=== PATIENT | female | born 1965 | race Caucasian/White ===

== ENCOUNTER 2021-05-12 08:40 | Outpatient (REF) | payer OTHER, SELFPAY ==
--- NOTE | ~2021-05-12 | MM_ITS ---
EXAMINATION: MM SCREENING DIGITAL BREAST TOMOSYNTHESIS, BILATERAL CLINICAL INFORMATION: Screening. Asymptomatic. The lifetime risk of breast cancer based on the Tyrer-Cuzick Model is 4%. COMPARISON: Mammography: 11/03/2019, 11/02/2018, 08/27/2017, 03/21/2016 TECHNIQUE: Digital breast tomosynthesis is performed in both the craniocaudal and mediolateral oblique views along with computer-aided detection (CAD). Synthesized 2D images are generated from the tomosynthesis. FINDINGS: There are scattered areas of fibroglandular density (ACR BI-RADS breast composition Category b). There are no significant masses, abnormal calcifications, or other abnormalities. Parenchymal pattern is similar to prior studies including minor parenchymal asymmetry mid upper right breast on MLO. There is no developing density. The axilla and skin contours are unremarkable. MM/MM tomosynthesis screening BI IMPRESSION: No mammographic evidence of malignancy. ASSESSMENT: BI-RADS 2: Benign RECOMMENDATION: Routine annual mammography screening. This patient's information was entered into a reminder system with a target due date for their next mammogram.
== END 2021-05-12 08:41 | disposition home or self-care (01) ==
LOC: HO.MAMMO 08:40
PROVIDERS: PCP Internal Medicine; Visit Provider Internal Medicine
DX: Z12.31 Encounter for screening mammogram for malignant neoplasm of breast (principal)
CPT/HCPCS: 77063; 77067

== ENCOUNTER 2022-05-13 09:21 | Outpatient (REF) | payer OTHER, SELFPAY ==
--- NOTE | ~2022-05-13 | MM_ITS ---
EXAMINATION: MM SCREENING DIGITAL BREAST TOMOSYNTHESIS, BILATERAL CLINICAL INFORMATION: Screening. Asymptomatic. The lifetime risk of breast cancer based on the Tyrer-Cuzick Model is 3.9%. COMPARISON: Mammography: May 12, 2021 and studies dating back to October 17, 2012 TECHNIQUE: Digital breast tomosynthesis is performed in both the craniocaudal and mediolateral oblique views along with computer-aided detection (CAD). Synthesized 2D images are generated from the tomosynthesis. FINDINGS: The breasts are heterogeneously dense, which may obscure small masses (ACR BI-RADS breast composition Category c). There are no significant masses, abnormal calcifications, or other abnormalities. MM/MM tomosynthesis screening BI IMPRESSION: There are no significant changes from prior study. ASSESSMENT: BI-RADS 1: Negative RECOMMENDATION: Routine annual mammography screening. This patient's information was entered into a reminder system with a target due date for their next mammogram.
== END 2022-05-13 09:22 | disposition home or self-care (01) ==
LOC: HO.MAMMO 09:21
PROVIDERS: PCP Internal Medicine; Visit Provider Internal Medicine
DX: Z12.31 Encounter for screening mammogram for malignant neoplasm of breast (principal)
CPT/HCPCS: 77063; 77067

== ENCOUNTER 2023-02-26 14:49 | Outpatient (REF) | payer OTHER, SELFPAY ==
--- NOTE | ~2023-02-26 | MM_ITS ---
EXAMINATION: BONE DENSITOMETRY CLINICAL INDICATION: Osteoporosis. COMPARISON: Previous BD dated 11/03/2019 and baseline BD dated 06/13/2008. TECHNIQUE: Using a [employer] DXA System (software version: 13.1) manufactured by [employer], dual-energy x-ray absorptiometry was performed of the lumbar spine and left hip. The images are of good technical quality. Summary results are attached. FINDINGS: AP SPINE L1-L4: Current: BMD 1.145 g/cm2, Z-score 1.4, T-score -0.3, normal, 0.9% increase from previous, 13.4% decrease from baseline (<5% change is not significant). Prior: BMD 1.135 g/cm2. Baseline: BMD 1.322 g/cm2. LEFT FEMUR, NECK: Current: BMD 0.683 g/cm2, Z-score -1.0, T-score -2.6, osteoporosis. Prior: BMD 0.673 g/cm2. Baseline: BMD 0.883 g/cm2. LEFT FEMUR, TOTAL: Current: BMD 0.692 g/cm2, Z-score -1.2, T-score -2.5, osteoporosis, 0.0% no change from previous, 21.5% decrease from baseline (<5% change is not significant). Prior: BMD 0.692 g/cm2. Baseline: BMD 0.882 g/cm2. IDENTIFIED RISK FACTORS: History of fracture (adult), menopause, osteoporosis. HISTORY OF FRACTURE: Wrist. MEDICATIONS: Vitamin D, calcium. MM/XR DEXA axial skeleton IMPRESSION: 1. DIAGNOSIS: Osteoporosis based on the lowest T-score value of -2.6 in the femoral neck applying World Health Organization criteria. 2. 10-YEAR FRACTURE RISK PREDICTION, FRAX: According to the guidelines, FRAX calculation should only be performed on patients in the osteopenia bone density category. Therefore, FRAX was not performed on this patient. 3. Treatment Recommendations: NOF guidelines recommend consideration for treatment in postmenopausal women and men age 50 and older presenting with the following: -A hip or vertebral (clinical or morphometric) fracture. -T-score less than or equal to -2.5 at the femoral neck or spine after appropriate evaluation to exclude secondary causes. -Low bone mass at the hip or spine and a 10-year fracture probability by FRAX of greater than or equal to 3% for hip fracture or greater than or equal to 20% for major osteoporotic fracture based on the [place] adapted WHO algorithm. 4. Other Recommendations: All treatment decisions require clinical judgment and consideration of individual patient factors, including patient preferences, comorbidities, previous drug use, risk factors not captured in the FRAX model (e.g. frailty, falls, vitamin D deficiency, increased bone turnover, interval significant decline in bone density) and possible under or overestimation of fracture risk by FRAX. Additional medical evaluation for secondary cause of low bone mineral density may be appropriate. FUTURE SCAN RECOMMENDATION: People with diagnosed cases of osteoporosis or at high risk for fracture should have regular bone mineral density tests. For patients eligible for Medicare, routine testing is allowed once every 2 years. The testing frequency can be increased to one year for patients who have rapidly progressing disease, those who are receiving or discontinuing medical therapy to restore bone mass, or have additional risk factors.
== END 2023-02-26 14:50 | disposition home or self-care (01) ==
LOC: HO.MAMMO 14:49
PROVIDERS: PCP Obstetrics & Gynecology; Visit Provider Obstetrics & Gynecology
DX: Z13.820 Encounter for screening for osteoporosis (principal); Z78.0 Asymptomatic menopausal state; M81.0 Age-related osteoporosis without current pathological fracture
CPT/HCPCS: 77080

== ENCOUNTER 2023-05-20 11:24 | Outpatient (REF) | payer OTHER, SELFPAY ==
--- NOTE | ~2023-05-20 | MM_ITS ---
EXAMINATION: MM SCREENING DIGITAL BREAST TOMOSYNTHESIS, BILATERAL CLINICAL INFORMATION: Screening. Asymptomatic. The lifetime risk of breast cancer based on the Tyrer-Cuzick Model is 5.4%. COMPARISON: Mammography: This study is compared with prior exams dating back to 2019. TECHNIQUE: Digital breast tomosynthesis is performed in both the craniocaudal and mediolateral oblique views along with computer-aided detection (CAD). Synthesized 2D images are generated from the tomosynthesis. FINDINGS: There are scattered areas of fibroglandular density (ACR BI-RADS breast composition Category b). There are no significant masses, abnormal calcifications, or other abnormalities. MM/MM tomosynthesis screening BI IMPRESSION: No mammographic evidence of malignancy. ASSESSMENT: BI-RADS BI-RADS 1 - Negative RECOMMENDATION: Routine annual mammography screening. 1 year F/U This examination should not preclude the clinical evaluation of a suspicious palpable abnormality. This patient's information was entered into a reminder system with a target due date for their next mammogram.
== END 2023-05-20 11:25 | disposition home or self-care (01) ==
LOC: HO.MAMMO 11:24
PROVIDERS: Absent Provider Student in an Organized Health Care Education/Training Program; PCP Student in an Organized Health Care Education/Training Program; Visit Provider Obstetrics & Gynecology
DX: Z12.31 Encounter for screening mammogram for malignant neoplasm of breast (principal)
CPT/HCPCS: 77063; 77067

== ENCOUNTER → 2023-05-20 11:30 | Outpatient (BNV) | payer OTHER, SELFPAY | PROVIDERS: Absent Provider Student in an Organized Health Care Education/Training Program; PCP Student in an Organized Health Care Education/Training Program; Visit Provider Radiology Diagnostic Radiology | DX: Z12.31 Encounter for screening mammogram for malignant neoplasm of breast (principal) | CPT/HCPCS: 77063; 77067 ==

== ENCOUNTER 2023-10-14 08:19 | Inpatient (IN) | payer OTHER, SELFPAY ==
[2023-10-14] VITALS (12 sets, daily range): BP systolic 100–150; BP diastolic 56–76; PULSE 61–125; RESP 16–22; TEMP 36–37.8; O2SAT 88–95; BMI 18.9
--- NOTE | ~2023-10-14 | XR_ITS ---
EXAMINATION: XR CHEST CLINICAL INFORMATION: Bilateral rhonchi, shortness of breath COMPARISON: None available. TECHNIQUE: 2 views of the chest were obtained. FINDINGS: Retrocardiac left lower lobe opacity observed suspicious for an infiltrate. Small linear atelectatic changes and patchy opacities are also seen peripherally toward the left base and in the right base. No distinct pleural effusions. Pulmonary vascularity appears unremarkable. XR/XR chest 2V IMPRESSION: Left lower lobe infiltrate. Linear atelectatic and small patchy opacities toward the bases bilaterally.
--- NOTE | ~2023-10-14 | CT_ITS ---
EXAMINATION: CT ANGIOGRAM OF THE CHEST WITH AND WITHOUT CONTRAST (CT PULMONARY ANGIOGRAM FOR PE) CLINICAL INFORMATION: Reason for Exam elevated ddimer, SOB COMPARISON: None available. TECHNIQUE: Prior to contrast administration, noncontrast localization images were obtained. Subsequently, multidetector volumetric imaging was performed from the thoracic inlet to below the diaphragms following the administration of 65 mL Omnipaque 350 intravenous contrast. No contrast reaction reported Sagittal, coronal, and MIP oblique sagittal reformatted images were obtained on the CT workstation, uploaded to PACS, and reviewed. This CT examination was performed using dose optimization techniques as appropriate, variously including the following: *Automated exposure control *Adjustment of mA and/or kV according to patient size (this includes techniques or standardized protocols for targeted exams where dose is matched to indication/reason for exam; i.e. extremities or head) *Use of iterative reconstruction technique Total exam dose-length product 188 mGy-cm FINDINGS: QUALITY OF STUDY/CONTRAST BOLUS: Satisfactory. PULMONARY ARTERIES: No pulmonary emboli. THORACIC AORTA: No aneurysm. LUNG: Multifocal patchy changes are present in both lower lobes with associated mucoid impaction of multiple bronchi. Some small scattered micronodules are seen. PLEURA: No pleural effusion or pneumothorax. MEDIASTINUM: Normal heart size. There is pectus excavatum. No pericardial effusion. No hilar or mediastinal lymphadenopathy. No evidence of septal bowing or right heart strain. CORONARY ARTERY CALCIFICATION: None visualized on this study. CHEST WALL/AXILLA: No axillary or internal mammary lymphadenopathy. OSSEOUS STRUCTURES: There is a biconvex thoracolumbar scoliosis present. No acute or suspicious osseous abnormality. UPPER ABDOMEN: Unremarkable. No reflux of contrast into the hepatic veins to suggest elevated right heart pressures. CT/CT angio chest PE protocol IMPRESSION: 1. No evidence of pulmonary emboli. 2. Multifocal patchy changes in both lower lobes with associated mucoid impaction of multiple bronchi. VTE: negative.
--- NOTE | 2023-10-14 08:49 | ED_ITS ---
HPI - General Adult General Chief complaint: Dyspnea Stated complaint: Low oxygen Time Seen by Provider: 10/14/23 08:48 Source: patient and family () Mode of arrival: ambulatory Limitations: no limitations History of Present Illness HPI narrative: 58 year old female with pmhx significant for mild persistent asthma, HTN, and hypothyroidism presents to the ED today for evaluation of shortness of breath and low oxygen x1 day. Reports cough productive of yellow/green sputum times 4- 5 days. She lives with her who has been ill with similar symptoms. States that her oxygen saturation at home yesterday was between 86 and 80% on room air. Does not require home O2. Admits feeling out of breath with associated chest tightness, headache, generalized weakness. Has been using albuterol inhaler at home without relief. Last used this this morning. States she feels warm however no documented fever at home. Denies recent travel or long car rides. Denies hormone use. Denies chest pain, palpitations, hemoptysis, sputum production. Related Data Home Medications Medication Instructions Recorded Confirmed aspirin 81 mg tablet,delayed 81 mg PO DAILY 10/14/23 10/14/23 release budesonide-formoterol HFA 160 2 puff inhalation BID 10/14/23 10/14/23 mcg-4.5 mcg/actuation aerosol inhaler (Symbicort) calcium carbonate 500 mg calcium 500 mg PO DAILY 10/14/23 10/14/23 (1,250 mg) tablet levothyroxine 75 mcg tablet 75 mcg PO DAILY@0600 10/14/23 10/14/23 losartan 25 mg tablet 25 mg PO BEDTIME 10/14/23 10/14/23 montelukast 10 mg tablet 10 mg PO BEDTIME 10/14/23 10/14/23 Allergies Allergy/AdvReac Type Severity Reaction Status Date / Time sulfamethoxazole Allergy Rash Verified 10/14/23 08:27 [From Bactrim] trimethoprim [From Bactrim] Allergy Rash Verified 10/14/23 08:27 Review of Systems 2 Review of Systems: Constitutional: No fever, chills, fatigue, night sweats, weight changes, +generalied weakness ENT/Mouth: No ear pain, hearing loss, nasal congestion, sinus pain, rhinorrhea, sore throat Eyes: No eye pain, swelling, redness, vision changes, discharge Cardio: No chest pain, palpitations, SILVA, orthopnea, peripheral edema Pulm: +SOB, +cough, No sputum, wheezing, dyspnea, hemoptysis GI: No nausea, vomiting, hematemesis, abdominal pain, diarrhea, constipation, hematochezia, melena : No irregular bleeding, dysuria, frequency, urgency, hesitancy, hematuria, flank pain, urinary flow changes, urinary incontinence or retention MSK: No back pain, neck pain, joint pain, myalgias Skin: No lesions, rashes Neuro: No weakness, numbness, paresthesias, LOC, dizziness, +headache All other systems reviewed and are negative. [facility] Past Medical History Attestation statement: The following information was validated with the patient. Source: old records reviewed and nursing notes reviewed Social History Social History Household Members: Spouse Housing: House Do you presently have visiting nurse or other home services: No Patient Tobacco Use Status: Never used Tobacco Physical Exam ED Vital Signs: Vital Signs - 24 hr 10/14/23 12:20 Temperature 99.3 F Pulse Rate 103 H Respiratory Rate 17 Blood Pressure 125/67 Pulse Oximetry 93 Oxygen Delivery Method Room Air BMI result Body Mass Index 18.9 Vital signs notable for tachycardia, tachypnea, hypoxia, hypertensive. Afebrile. Const General: cooperative, no acute distress, alert, awake and ill appearing Nutritional Appearance: thin Orientation/consciousness: patient oriented x3 Limitations: no limitations HENMT Head: Yes normal to inspection, Yes normocephalic and Yes atraumatic Eyes General: appearance normal, both eyes and all related structures Conjunctivae: conjunctivae normal Sclerae: sclerae normal Pupils: Equal, round and reactive pupils present EOM: EOMs intact bilaterally Neck Neck: Yes normal visual inspection, Yes full ROM and Yes no lymphadenopathy Chest Chest palpation & inspection: normal inspection of the chest, normal palpation of entire chest wall, no crepitus and no tenderness Resp Other: + patient with increased effort of breathing. Diffuse inspiratory and expiratory rhonchi and wheezing bilaterally. On 2 L O2. Effort & Inspection: tachypneic Cardio Rate: tachycardic Rhythm: regular rhythm Heart sounds: S1 normal heart sound present and S2 normal heart sound present GI Inspection: Yes normal to inspection Palpation (GI): Soft to palpation and nontender Skin General skin exam: no rashes or lesions noted Neuro General: patient oriented x3, gait normal and moves all extremities Cranial nerves: Yes Equal, round and reactive pupils present Extrem General: Yes normal to inspection and Yes full ROM Course Course Course Narrative: 0900-- Vital signs notable for hypertension to 141/76. Tachycardia to 107. Tachypnea to 22. Satting 88% O2 on room air, now 93% on 3L nasal cannula. Afebrile. >> CBC without leukocytosis.?H&H stable. Ddimer 3100 > CTA chest ordered to r/o pulmonary emboli. Chemistry without acute electrolyte abnormality requiring intervention. Renal function wnl. Hepatic function wnl. Latic acid wnl at 1.1. Urine negative for infection.?Positive for influenza A. Negative for covid and rsv. CXR exhibits left lower lobe infiltrate. >> at this time infection is suspected. patient placed on IV ceftriaxone and azithromycin for broad spectrum coverage. 1100-- CTA chest exhibits multifocal patchy changes to bilateral lower lobes with associated mucoid impaction of multiple bronchi. No evidence of pulmonary emboli. >> Patient reciving duoneb, IV antibiotics, and tamiflu >> will present to hospitalist for admission for hypoxia secondary to influenza A, community acquired pneumonia, and acute asthma exacerbation. 1125-- Spoke with hospitalist, Dr. Cole who will put in admission orders. Medications Administered Generic Name Dose Route Start Last Admin Trade Name Freq PRN Reason Stop Dose Admin Acetaminophen 650 mg 10/14/23 13:03 10/15/23 09:57 Acetaminophen 325 Mg Tablet PO 650 mg Q6H PRN Administration Pain, Mild (Pain Scale 1-3) Albuterol/Ipratropium 3 ml 10/14/23 16:00 10/15/23 11:11 Albuterol/Iprat 2.5/0.5mg 3 Ml Ampul.Neb INHALE 3 ml RQ4H WHILE AWAKE NANCY Administration Aspirin 81 mg 10/14/23 13:00 10/15/23 09:45 Aspirin Enteric Coated 81 Mg Tablet. PO 81 mg DAILY NANCY Administration Calcium Carbonate 500 mg 10/14/23 13:00 10/15/23 09:45 Calcium Carbonate 500 Mg Tablet PO 500 mg DAILY NANCY Administration Enoxaparin Sodium 40 mg 10/14/23 13:15 10/14/23 13:33 Enoxaparin Sodium 40 Mg/0.4 Ml Syringe SUBCUT 40 mg Q24H NANCY Administration Fluticasone/Vilanterol 2 puff 10/15/23 08:00 10/15/23 11:11 Fluticasone/Vilanterol 200/25 Blst.W.Dev INHALE 2 puff RDAILY NANCY Administration Guaifenesin/Dextromethorphan 1 tab 10/14/23 13:10 10/15/23 09:45 Guaifenesin Dm 600/30 1 Tab Tab.Er.12h PO 1 tab BID NANCY Administration Ceftriaxone Sodium 1 gm/ 50 mls @ 100 mls/hr 10/15/23 10:00 10/15/23 11:33 Sodium Chloride IV Infused Q24H NANCY Infusion Azithromycin 500 mg/ Sodium 250 mls @ 125 mls/hr 10/15/23 10:30 10/15/23 11:12 Chloride IV 125 mls/hr Q24H NANCY Administration Levothyroxine Sodium 75 mcg 10/15/23 06:00 10/15/23 06:24 Levothyroxine Sodium 75 Mcg Tablet PO 75 mcg DAILY@0600 NANCY Administration Losartan Potassium 25 mg 10/14/23 21:00 10/14/23 20:17 Losartan Potassium 25 Mg Tablet PO 25 mg BEDTIME NANCY Administration Protocol Methylprednisolone Sodium Succinate 40 mg 10/14/23 13:30 10/15/23 01:19 Methylprednisolone Sod Succ 40 Mg/Ml Vial IVPUSH 40 mg Q12H NANCY Administration Montelukast Sodium 10 mg 10/14/23 21:00 10/14/23 20:17 Montelukast Sodium 10 Mg Tablet PO 10 mg BEDTIME NANCY Administration Oseltamivir Phosphate 75 mg 10/14/23 22:30 10/15/23 10:43 Oseltamivir Phosphate 75 Mg Capsule PO 10/18/23 22:31 75 mg Q12H NANCY Administration Sodium Chloride 3 ml 10/14/23 16:00 10/15/23 09:45 0.9 % Sodium Chloride Flush 3 Ml Syringe IVFLUSH 3 ml QSHIFT NANCY Administration Discontinued Medications Generic Name Dose Route Start Last Admin Trade Name Freq PRN Reason Stop Dose Admin Albuterol Sulfate 2.5 mg/ 0 mg 10/14/23 09:07 10/14/23 09:11 Albuterol/Ipratropium 3 ml INHALE 10/14/23 09:08 1 dose ONCE ONE Administration Ceftriaxone Sodium 1 gm/ 50 mls @ 100 mls/hr 10/14/23 09:00 10/14/23 10:24 Sodium Chloride IV 10/14/23 09:29 Infused ONCE ONE Infusion Azithromycin 500 mg/ Sodium 250 mls @ 125 mls/hr 10/14/23 09:00 10/14/23 12:19 Chloride IV 10/14/23 10:59 Infused ONCE ONE Infusion Sodium Chloride 1,000 mls @ 999 mls/hr 10/14/23 13:15 10/14/23 14:46 Ns IV 10/14/23 14:15 Infused .Q1H1M NANCY Infusion Iohexol 100 ml 10/14/23 10:04 10/14/23 10:05 Iohexol 350 Mg/Ml 100 Ml Infus..Btl IV 10/14/23 10:05 65 ml ONCE ONE Administration Ondansetron HCl 4 mg 10/14/23 10:01 10/14/23 10:28 Ondansetron Hcl 4 Mg/2 Ml Vial IVPUSH 10/14/23 10:02 4 mg ONCE ONE Administration Oseltamivir Phosphate 75 mg 10/14/23 09:52 10/14/23 10:29 Oseltamivir Phosphate 75 Mg Capsule PO 10/14/23 09:53 75 mg ONCE ONE Administration Medical Decision Making Medical Decision Making MDM Narrative: 58 year old female with pmhx significant for mild persistent asthma, HTN, and hypothyroidism presents to the ED today for evaluation of shortness of breath and low oxygen x1 day. VS notable for hypertension to 141/76. Tachycardia to 107. Tachypnea to 22. Satting 88% O2 on room air, now 94% on 2L nasal cannula. Afebrile. Patient is ill appearing with increased effort of breathing. Diffuse inspiratory and expiratory rhonchi and wheezing bilaterally. On 2 L O2. Concern for viral syndrome, acute asthma exacerbation, pneumonia, urinary tract infection, pulmonary embolism, CHF, pleural effusion, pericardial effusion, cardiac tamponade. Unlikely acute abdomen, ARDS, pneumothorax, lung abscess, ACS, arrhythmia. Plan for labs, ekg, cxr, ua, viral serology, rt treatment, and re-evaluation. Differential Diagnosis Differential Diagnoses: The differential diagnosis associated with the presentation includes as above Admission/Observation Consideration of admission/observation: Escalation of care including admission/observation considered Patient likely to be admitted to medicine. Consult Healthcare Provider Management of the patient was discussed with: Hospitalist (Dr. Cole) Lab Data MDM Lab Attestation statement: I reviewed the patient's lab results. as above 10/14/23 09:10 10/15/23 05:37 Labs: Lab Results 10/14/23 10/14/23 10/14/23 Range/Units 08:50 09:10 09:15 WBC 9.7 (4.8-10.8) X10*3/uL RBC 4.41 (4.20-5.50) X10*6/uL Hgb 13.6 (12.0-16.0) g/dl Hct 40.6 (37.0-47.0) % MCV 92.1 (80.0-98.0) fL MCH 30.8 (27.0-33.0) pg MCHC 33.5 (31.0-35.0) g/dl RDW 12.3 (11.0-16.0) % Plt Count 183 (160-400) X10*3/uL MPV 10.0 (9.4-12.3) fL Immature Gran % (Auto) 0.4 (0.0-0.4) % Neut % (Auto) 87.9 H (45-73) % Lymph % (Auto) 6.4 L (20-40) % Cass % (Auto) 5.0 (2-11) % Eos % (Auto) 0.0 (0-4) % Baso % (Auto) 0.3 (0-2) % Lymph # (Auto) 0.6 L (1.2-4.9) X10*3/uL Cass # (Auto) 0.5 (0.1-1.2) X10*3/uL Eos # (Auto) 0.0 (0.0-0.4) X10*3/uL Baso # (Auto) 0.0 (0.0-0.2) X10*3/uL Abs Immat Gran (auto) 0.04 H (0.00-0.03) X10*3/uL Absolute Neuts (auto) 8.5 H (2.0-8.3) x10*3/uL Absolute Nucleated RBC 0.000 (0.0-0.012) X10*3/uL Nucleated RBC % (auto) 0.0 (0.0-0.2) /100WBC PT 12.2 (11.1-13.3) SEC INR 1.0 (0.9-1.1) D-Dimer High Sensitivty 3100 NG/ML VBG pH 7.42 (7.32-7.43) VBG pCO2 40 mmHg VBG pO2 41 mmHg VBG HCO3 26 (22-26) mmol/L VBG O2 Saturation 67.0 % VBG Base Excess 1.9 mmol/L Sodium 140 (135-145) mmol/L Potassium 4.4 (3.3-5.1) mmol/L Chloride 105 (96-108) mmol/L Carbon Dioxide 26 (22-29) mmol/L Anion Gap 13 (12-20) BUN 11 (9-16) mg/dL Creatinine 0.83 (0.5-1.4) mg/dL Estim Creat Clear Calc 56.9 Estimated GFR > 60 Random Glucose 129 H (60-115) mg/dL Lactic Acid 1.1 (0.5-2.0) mmol/L Calcium 9.8 (8.4-10.2) mg/dL Magnesium 2.2 (1.6-2.6) mg/dL Total Bilirubin 1.2 H (0.0-1.0) mg/dL AST 23 (5-31) U/L ALT 13 (0-31) U/L Alkaline Phosphatase 60 (39-117) U/L Troponin I High Sens < 2.7 (<3.5-17.0) ng/L B-Natriuretic Peptide 23 (<100) pg/mL Total Protein 7.6 (6.5-8.0) g/dL Albumin 4.4 (3.5-5.0) g/dL Lipase 22 (8-78) U/L Influenza Type A (PCR) POSITIVE A (Negative) Influenza Type B (PCR) NEGATIVE (Negative) RSV RNA Qual (PCR) NEGATIVE (Negative) SARS-CoV-2 RNA (RT-PCR) NEGATIVE (Negative) Independent Interpretation I performed an independent interpretation of an: EKG, Plain X-Ray and CT Scan Interpretation: EKG showing sinus tachycardia with a rate of 118 bpm, QT 302, QTC 423, with nonspecific ST abnormality. CXR showing infiltrate to left lower lobe, agree with radiologist's interpretation. CTA chest without emboli, agree with radiologist's interpretation. Radiology Impression Discussion of test interpretation with radiology: I have reviewed the radiologist's reading. Radiologist Impression: XR chest 2V IMPRESSION: Left lower lobe infiltrate. Linear atelectatic and small patchy opacities toward the bases bilaterally. CT angio chest PE protocol IMPRESSION: 1. No evidence of pulmonary emboli. 2. Multifocal patchy changes in both lower lobes with associated mucoid impaction of multiple bronchi. VTE: negative. Independent Historian Clinical information obtained from an independent historian. History obtained from or confirmed by: Spouse () External Record Review External record reviewed: Inpatient record Prescription Management I considered prescription management with: Pain Medication, Antiviral, Antibiotic and Other (steroid) Chronic Conditions Patient?s care impacted by: Other (asthma) Critical Care Time Critical Care Time Critical Care Time: Yes Total Critical Care Time: 60 Attestation: Critical care time in the amount of 60 minutes has been provided to the patient in terms of direct patient care, frequent reevaluation, consultation with hospitalist, review and interpretation of medical data and results, and management of potentially life-threatening conditions. This is all outside of any medical procedures. Discharge Plan Discharge Clinical Impression: Acute asthma exacerbation, Influenza A, Community acquired pneumonia Patient Disposition: Admitted As Inpatient Interventions: Admission Worksheet (ED) Last Done: 10/14/23 18:52 Discharge Date/Time: 10/14/23 23:37
--- NOTE | 2023-10-14 08:53 | ECG_ITS ---
Test Reason : weakness Blood Pressure : / mmHG Vent. Rate : 118 BPM Atrial Rate : 118 BPM P-R Int : 140 ms QRS Dur : 070 ms QT Int : 302 ms P-R-T Axes : 069 074 056 degrees QTc Int : 423 ms Sinus tachycardia Possible Left atrial enlargement Nonspecific ST abnormality Abnormal ECG No previous ECGs available Referred By: Emilee Mccann Electronically Signed By:SARIKA LERMA MD
[2023-10-14] MEDS: Albuterol Sulfate 2.5 MG, Albuterol/Iprat 2.5/0.5MG 3 ML 3 ML INHALE (09:11)
[2023-10-14 09:19] LABS: MANUAL DIFF FLAG NO
[2023-10-14 09:21] LABS: Venous Blood Gas Refer to POC result
[2023-10-14 09:22] LABS: VBG Base Excess 1.9 mmol/L; VBG HCO3 26 mmol/L (22-26); VBG pCO2 40 mmHg; VBG pH 7.42 (7.32-7.43); VBG pO2 41 mmHg
[2023-10-14 09:25] LABS: Basophils Percent Auto 0.3 % (0-2); Hematocrit 40.6 % (37.0-47.0); Hemoglobin 13.6 g/dl (12.0-16.0); Imm Gran Abs Auto 0.04 X10*3/uL (0.00-0.03); Imm Gran Pct Auto 0.4 % (0.0-0.4); Lymphocytes Absolute Auto 0.6 X10*3/uL (1.2-4.9); Lymphocytes Percent Auto 6.4 % (20-40); Mean Corpuscular HGB Conc 33.5 g/dl (31.0-35.0); Mean Corpuscular Hemoglobin 30.8 pg (27.0-33.0); Mean Corpuscular Volume 92.1 fL (80.0-98.0); Monocytes Absolute Auto 0.5 X10*3/uL (0.1-1.2); Neutrophils Absolute Auto 8.5 x10*3/uL (2.0-8.3); Neutrophils Percent Auto 87.9 % (45-73); Platelet Count 183 X10*3/uL (160-400); Red Blood Count 4.41 X10*6/uL (4.20-5.50); Red Cell Distribution Width 12.3 % (11.0-16.0); White Blood Count 9.7 X10*3/uL (4.8-10.8)
[2023-10-14 09:31] LABS: Lactic Acid 1.1 mmol/L (0.5-2.0)
[2023-10-14 09:34] LABS: Prothrombin Time 12.2 SEC (11.1-13.3)
[2023-10-14 09:36] LABS: Alanine Aminotransferase 13 U/L (0-31); Albumin Level 4.4 g/dL (3.5-5.0); Alkaline Phosphatase 60 U/L (39-117); Anion Gap 13 (12-20); Aspartate Amino Transferase 23 U/L (5-31); Bilirubin Total 1.2 mg/dL (0.0-1.0); Blood Urea Nitrogen 11 mg/dL (9-16); Calcium 9.8 mg/dL (8.4-10.2); Carbon Dioxide 26 mmol/L (22-29); Chloride 105 mmol/L (96-108); Creatinine Clr Calc Pharmacy 56.9; D Dimer High Sensitivity 3100 NG/ML; Estimated Glomerular Filt Rate > 60; Glucose Random 129 mg/dL (60-115); Lipase 22 U/L (8-78); Magnesium 2.2 mg/dL (1.6-2.6); Potassium 4.4 mmol/L (3.3-5.1); Sodium 140 mmol/L (135-145); Total Protein 7.6 g/dL (6.5-8.0)
[2023-10-14 09:40] LABS: B Type Natriuretic Peptide 23 pg/mL (<100)
[2023-10-14] MEDS: cefTRIAXone sodium 1 GM in 0.9 % Sodium Chloride 50 ML IV (09:42)
[2023-10-14 09:44] LABS: Troponin-I High Sensitivity < 2.7 ng/L (<3.5-17.0)
[2023-10-14 09:46] LABS: Influenza A PCR POSITIVE (Negative); Influenza B PCR NEGATIVE (Negative); Resp Syncy Virus RNA Qual PCR NEGATIVE (Negative); SARS COV2 PCR INHOUSE NEGATIVE (Negative)
--- NOTE | 2023-10-14 09:52 | PC.NURSE ---
To ct at this time
[2023-10-14] MEDS: iohexoL 350 MG/ML 100 ML INFUS..BTL IV (10:05)
[2023-10-14] MEDS: Azithromycin 500 MG in 0.9 % Sodium Chloride 250 ML 125 MG IV (10:21)
[2023-10-14] MEDS: ondansetron HCL 4 MG/2 ML VIAL IVPUSH (10:28)
[2023-10-14] MEDS: Oseltamivir Phosphate 75 MG CAPSULE PO ×2 (10:29→21:55)
--- NOTE | 2023-10-14 11:45 | PM.IMHP ---
History of Present Illness Date of Service: 10/14/23 Attending physician on admission: Kamron Arevalo Chief Complaint: SOB Pt is a 58-year-old female with a PMH significant for?mild persistent asthma, HTN, and hypothyroidism who presents to the ED with?hypoxia, SOB, and productive cough for the past 4-5 days. Patient lives with her , who became ill approximately 1 week ago with nonproductive cough and fever. Symptoms last 24 hours and then he felt better. Patient began feeling ill 1-2 days later when she developed cough, low-grade fever, myalgias, and headache. Cough has been productive of thick green sputum. Also has had some nausea and vomiting. Patient checked her O2 sat earlier today which was low at 86%, which prompted her visit to the ED for further evaluation. Patient is not on home O2. Has experienced some chest tightness associated with both cough and breathing. In the ED pt was elevated temp of 100.0 degrees, tachycardia 107, tachypnea up to 22, hypertensive up to 150/69, and satting at 88% on RA. Labs were significant for patient tested positive for influenza type A, otherwise grossly unremarkable. No leukocytosis. Stable H&H. Electrolytes WNL. Renal function WNL. Hepatic function WNL. Troponin negative, BNP negative. Lactic acid WNL at 1.1. CXR showed linear atelectasis and small patchy opacities toward the bases bilaterally. CTA ?showed no evidence of pulmonary emboli, but did show multifocal patchy changes in both lower lobes with associated mucoid impaction of multiple bronchi. EKG demonstrated sinus tachycardia with non specific ST elevations and depressions. Pt was treated with DuoNebs, ceftriaxone, azithromycin, ondansetron, and Tamiflu. Pt will be admitted to the hospital for treatment further evaluation of acute hypoxic respiratory failure in setting of influenza type B infection, community-acquired pneumonia, and acute asthma exacerbation. Review of Systems Review of Systems: Shortness of breath Hypoxia Cough productive of green-colored sputum Headache Myalgias Low-grade fever Nausea, vomiting Chest tightness/pain with breathing and coughing PMFSH Social History Smoked in Last 30 Days: No Use of substances other than those prescribed or required for medical reasons: No Advance Directives: No Advance Directives Information Provided: Yes Patient : No Meds Allergies Allergy/AdvReac Type Severity Reaction Status Date / Time sulfamethoxazole Allergy Rash Verified 10/14/23 08:27 [From Bactrim] trimethoprim [From Bactrim] Allergy Rash Verified 10/14/23 08:27 Home Medications Medication Instructions Recorded Confirmed Last Taken Type aspirin 81 mg tablet,delayed 81 mg PO DAILY 10/14/23 10/14/23 10/13/23 09:00 History release budesonide-formoterol HFA 160 2 puff inhalation BID 10/14/23 10/14/23 10/13/23 09:00 History mcg-4.5 mcg/actuation aerosol inhaler (Symbicort) calcium carbonate 500 mg calcium 500 mg PO DAILY 10/14/23 10/14/23 10/13/23 09:00 History (1,250 mg) tablet levothyroxine 75 mcg tablet 75 mcg PO DAILY@0600 10/14/23 10/14/23 10/14/23 History losartan 25 mg tablet 25 mg PO BEDTIME 10/14/23 10/14/23 10/13/23 09:00 History montelukast 10 mg tablet 10 mg PO BEDTIME 10/14/23 10/14/23 10/12/23 History Physical Exam Vital Signs and Narrative: Vital Signs: Last Vital Signs Temp 100.0 F 10/14/23 08:37 Pulse 125 H 10/14/23 09:50 Resp 20 10/14/23 09:50 BP 147/75 H 10/14/23 09:50 Pulse Ox 94 10/14/23 09:50 O2 Del Method Nasal Cannula 10/14/23 09:50 O2 Flow Rate 4 10/14/23 09:50 BMI result Body Mass Index 18.9 Constitutional: Alert, in no acute distress. Mental Status: Oriented to person, place and time. Eyes: Pupils are equal, round, and reactive to light. Ear, Nose, and Throat: Oropharynx clear, mucous membranes moist. Ears and nose without deformities. Trachea midline. Respiratory: Diffuse inspiratory and expiratory rhonchi and wheezing bilaterally. Cardiovascular: S1, S2, tachy. Gastrointestinal: Abdomen soft, non-tender, non-distended. Normal bowel sounds. Neurologic: Cranial nerves II-XII are grossly intact bilaterally. No focal neurological deficits. Moves all extremities spontaneously. Skin: Warm, dry. Musculoskeletal: No cyanosis or clubbing. Extremities: No edema. Psychiatric: Normal mood and affect. Results Labs 10/14/23 09:10 10/14/23 09:10 Labs: Laboratory Results - last 24 hr 10/14/23 10/14/23 10/14/23 08:50 09:10 09:15 MCV 92.1 MCH 30.8 MCHC 33.5 RDW 12.3 Plt Count 183 MPV 10.0 Immature Gran % (Auto) 0.4 Neut % (Auto) 87.9 H Lymph % (Auto) 6.4 L [place] % (Auto) 5.0 Eos % (Auto) 0.0 Baso % (Auto) 0.3 Lymph # (Auto) 0.6 L [place] # (Auto) 0.5 Eos # (Auto) 0.0 Baso # (Auto) 0.0 Abs Immat Gran (auto) 0.04 H Absolute Neuts (auto) 8.5 H Absolute Nucleated RBC 0.000 Nucleated RBC % (auto) 0.0 PT 12.2 INR 1.0 D-Dimer High Sensitivty 3100 VBG pH 7.42 VBG pCO2 40 VBG pO2 41 VBG HCO3 26 VBG O2 Saturation 67.0 VBG Base Excess 1.9 Anion Gap 13 Estim Creat Clear Calc 56.9 Estimated GFR > 60 Random Glucose 129 H Lactic Acid 1.1 Calcium 9.8 Magnesium 2.2 Total Bilirubin 1.2 H AST 23 ALT 13 Alkaline Phosphatase 60 B-Natriuretic Peptide 23 Total Protein 7.6 Albumin 4.4 Lipase 22 Influenza Type A (PCR) POSITIVE A Influenza Type B (PCR) NEGATIVE RSV RNA Qual (PCR) NEGATIVE SARS-CoV-2 RNA (RT-PCR) NEGATIVE Imaging Radiologist's Impressions: Impressions Chest CTA 10/14/23 10:16 IMPRESSION: 1. No evidence of pulmonary emboli. 2. Multifocal patchy changes in both lower lobes with associated mucoid impaction of multiple bronchi. VTE: negative. Assessment and Plan (1) Influenza A: Status: Acute (2) Hypoxia: Status: Acute (3) Asthma exacerbation: Status: Acute Plan Pt is a 58-year-old female with a PMH significant for?mild persistent asthma, HTN, and hypothyroidism who presents to the ED with?hypoxia, SOB, and productive cough for the past 4-5 days. Pt will be admitted to the hospital for treatment further evaluation of acute hypoxic respiratory failure in setting of influenza type B infection, community-acquired pneumonia, and acute asthma exacerbation. Acute hypoxic respiratory failure in the setting of influenza type a infection Patient satting as low as 86% on RA Will treat with Tamiflu, started 10/14/2023 Mucinex DM b.i.d. Titrate supplemental O2>92, wean as tolerated Community-acquired pneumonia with sepsis In the setting of above CXR and CTA evidence of multifocal patchy changes in bilateral lower lobes Patient with hypoxia, cough productive of thick greenish sputum Patient be sepsis criteria: Tachycardia, tachypnea; lactic acid WNL at 1.1 Will give 1L IVF Will treat with ceftriaxone and azithromycin, started 10/14/2023 Acute mild persistent asthma exacerbation In setting of above Will treat with DuoNebs, Solu-Medrol Continue home maintenance inhalers Monitor respiratory status Hyperbilirubinemia Total bili mildly elevated at 1.2 Patient asymptomatic Question of Gilbert's syndrome Will repeat CMP tomorrow Hypothyroidism Continue levothyroxine HTN Continue losartan Full Code Attending:?Dr. Mishra DVT Prophylaxis: Lovenox Pt will require a hospitalization of at least two nights for treatment of acute hypoxic respiratory failure in the setting of influenza type a infection, community-acquired pneumonia, and asthma exacerbation. Patient will require supplemental O2, IV antibiotics, IV steroids, and breathing treatments. Quality Stroke Does the patient have a stroke diagnosis?: No VTE Prior VTE?: No VTE Risk Level:: Medical - moderate - high VTE Device Contraindication: Treatment Not Indicated VTE Drug Contraindication: N/A - Med Ordered
--- NOTE | 2023-10-14 12:37 | PHA.MEDREC ---
Pharmacy Consult ? Medication Reconciliation Pharmacy has completed the medication reconciliation.
[2023-10-14] MEDS: 0.9 % Sodium Chloride 1,000 ML 999 ML IV (13:24)
[2023-10-14] MEDS: Aspirin Enteric Coated 81 MG TABLET.DR PO (13:32)
[2023-10-14] MEDS: Acetaminophen 325 MG TABLET 650 MG PO ×2 (13:32→20:17)
[2023-10-14] MEDS: Enoxaparin Sodium 40 MG/0.4 ML SYRINGE SUBCUT (13:33)
--- NOTE | 2023-10-14 13:35 | PC.NURSE ---
contact made to pharmacy, awaiting musinex at this time.
[2023-10-14] MEDS: methylPREDNISolone Sod Succ 40 MG/ML VIAL IVPUSH (13:38)
[2023-10-14] MEDS: guaiFENesin DM 600/30 1 TAB TAB.ER.12H PO ×2 (13:39→21:55)
--- NOTE | 2023-10-14 14:45 | PC.NURSE ---
RN RECEIVED FROM RN (MAIN ED). PT HAS ARRIVED VIA STRETCHER. PT IS IN BED 2.
--- NOTE | 2023-10-14 16:09 | PC.NURSE ---
patient brought over from ed, pt a&ox3, ambulated to bathroom with assist-O2 tank- steady gait, pt SILVA, urine obtained, flu precautions maintained pt back to bed and went to sleep, call stauffer within reach, will continue to monitor
[2023-10-14 16:13] LABS: Appearance Urine Clear; Color Urine Yellow; Glucose Urine UA Negative (Negative); Leukocyte Esterase Urine Negative (Negative); Nitrite Urine Negative (Negative); PH 6.5 (5.0-9.0); Specific Gravity - Urine >= 1.030 (1.005-1.025); Urine Blood Negative (Negative); Urine Ketones 15 mg/dL (Negative); Urine Protein Trace mg/dL (Neg-Trace)
[2023-10-14] MEDS: Albuterol/Iprat 2.5/0.5MG 3 ML AMPUL.NEB INHALE ×2 (16:48→19:45)
--- NOTE | 2023-10-14 17:15 | PC.NURSE ---
kitchen called for missing dinner
--- NOTE | 2023-10-14 18:55 | PC.NURSE ---
report set in computer/tiger texted floor notifying them
[2023-10-14] MEDS: Losartan Potassium 25 MG TABLET PO (20:17)
[2023-10-14] MEDS: Montelukast Sodium 10 MG TABLET PO (20:17)
[2023-10-14] MEDS: 0.9 % Sodium Chloride Flush 3 ML SYRINGE IVFLUSH (21:55)
[2023-10-15] VITALS (9 sets, daily range): BP systolic 108–145; BP diastolic 55–67; PULSE 74–100; RESP 18–20; TEMP 36.3–36.8; O2SAT 92–95
[2023-10-15] MEDS: methylPREDNISolone Sod Succ 40 MG/ML VIAL IVPUSH ×2 (01:19→14:29)
[2023-10-15] MEDS: Levothyroxine Sodium 75 MCG TABLET PO (06:24)
[2023-10-15 07:31] LABS: Alanine Aminotransferase 11 U/L (0-31); Albumin Level 3.8 g/dL (3.5-5.0); Alkaline Phosphatase 45 U/L (39-117); Anion Gap 15 (12-20); Aspartate Amino Transferase 17 U/L (5-31); Bilirubin Total 0.7 mg/dL (0.0-1.0); Blood Urea Nitrogen 14 mg/dL (9-16); Calcium 9.3 mg/dL (8.4-10.2); Carbon Dioxide 21 mmol/L (22-29); Chloride 105 mmol/L (96-108); Creatinine Clr Calc Pharmacy 69.4; Estimated Glomerular Filt Rate > 60; Glucose Random 140 mg/dL (60-115); Potassium 4.1 mmol/L (3.3-5.1); Sodium 137 mmol/L (135-145); Total Protein 6.8 g/dL (6.5-8.0)
[2023-10-15] MEDS: Albuterol/Iprat 2.5/0.5MG 3 ML AMPUL.NEB INHALE ×4 (07:47→19:03)
[2023-10-15] MEDS: guaiFENesin DM 600/30 1 TAB TAB.ER.12H PO ×2 (09:45→22:34)
[2023-10-15] MEDS: 0.9 % Sodium Chloride Flush 3 ML SYRINGE IVFLUSH ×2 (09:45→22:35)
[2023-10-15] MEDS: cefTRIAXone sodium 1 GM in 0.9 % Sodium Chloride 50 ML IV (09:45)
[2023-10-15] MEDS: Aspirin Enteric Coated 81 MG TABLET.DR PO (09:45)
[2023-10-15] MEDS: Acetaminophen 325 MG TABLET 650 MG PO (09:57)
--- NOTE | 2023-10-15 09:57 | MHC.CLN ---
NUTRITION DIET=REGULAR. BMI=18.9, AND WEIGHT IS 92% OF IBW. NO ADDITIONAL NUTRITION INTERVENTIONS AT THIS TIME. RD TO FOLLOW UP 10/19.
[2023-10-15] MEDS: Oseltamivir Phosphate 75 MG CAPSULE PO ×2 (10:43→22:35)
[2023-10-15] MEDS: Fluticasone/Vilanterol 200/25 BLST.W.DEV 2 PUFF INHALE (11:11)
[2023-10-15] MEDS: Azithromycin 500 MG in 0.9 % Sodium Chloride 250 ML 125 MG IV (11:12)
--- NOTE | 2023-10-15 12:10 | HO.PM.IMPN ---
Subjective Subjective Date of Service: 10/15/23 <FAUSTO Denton - Last Filed: 10/15/23 12:23> 10/16/23 <Jimbo Cole MD - Last Filed: 10/16/23 09:17> Interval History: Patient seen for follow-up for acute hypoxic respiratory failure in the setting of influenza type a, pneumonia, and asthma exacerbation Patient reports no acute events overnight States she is feeling and breathing better with less painful deep breathing Patient has been coughing less frequently, but says she has been able to cough up a lot of phlegm Denies any new complaints <FAUSTO Denton - Last Filed: 10/15/23 12:23> Physical Exam Vital Signs: Vital Signs: Last Vital Signs Temp 98.2 F 10/15/23 07:11 Pulse 77 10/15/23 11:11 Resp 18 10/15/23 11:11 BP 113/60 10/15/23 07:11 Pulse Ox 95 10/15/23 07:11 O2 Del Method Nasal Cannula 10/15/23 07:11 O2 Flow Rate 2 10/15/23 07:11 BMI result Body Mass Index 18.9 <FAUSTO Denton - Last Filed: 10/15/23 12:23> General: AOx3, no acute distress Resp: Diffuse bilateral rhonchi CVS: S1, S2, RRR GI: +BS, NT, no distention Skin: Warm, dry Neuro: Cranial nerves II-XII grossly intact bilaterally. Motor grossly intact bilaterally Extremities: No edema Psych: Appropriate affect <FAUSTO Denton - Last Filed: 10/15/23 12:23> Objective Data Active Medications Acetaminophen (Acetaminophen 325 Mg Tablet) 650 mg PO Q6H PRN PRN Reason: Pain, Mild (Pain Scale 1-3) Last Admin: 10/15/23 09:57 Dose: 650 mg Documented By: ROSE Albuterol/Ipratropium (Albuterol/Iprat 2.5/0.5mg 3 Ml Ampul.Neb) 3 ml INHALE RQ4H WHILE AWAKE [facility] Last Admin: 10/15/23 11:11 Dose: 3 ml Documented By: GABBY Aspirin (Aspirin Enteric Coated 81 Mg Tablet.) 81 mg PO DAILY [facility] Last Admin: 10/15/23 09:45 Dose: 81 mg Documented By: ROSE Calcium Carbonate (Calcium Carbonate 500 Mg Tablet) 500 mg PO DAILY [facility] Last Admin: 10/15/23 09:45 Dose: 500 mg Documented By: ROSE Docusate Sodium (Docusate Sodium 100 Mg Capsule) 100 mg PO DAILY PRN PRN Reason: Constipation Enoxaparin Sodium (Enoxaparin Sodium 40 Mg/0.4 Ml Syringe) 40 mg SUBCUT Q24H [facility] Last Admin: 10/14/23 13:33 Dose: 40 mg Documented By: AMILCAR Fluticasone/Vilanterol (Fluticasone/Vilanterol 200/25 Blst.W.Dev) 2 puff INHALE RDAILY [facility] Last Admin: 10/15/23 11:11 Dose: 2 puff Documented By: GABBY Guaifenesin/Dextromethorphan (Guaifenesin Dm 600/30 1 Tab Tab.Er.12h) 1 tab PO BID [facility] Last Admin: 10/15/23 09:45 Dose: 1 tab Documented By: ROSE Ceftriaxone Sodium 1 gm/ (Sodium Chloride) 50 mls @ 100 mls/hr IV Q24H [facility] Last Infusion: 10/15/23 11:33 Dose: Infused Documented By: ROSE Azithromycin 500 mg/ Sodium (Chloride) 250 mls @ 125 mls/hr IV Q24H [facility] Last Admin: 10/15/23 11:12 Dose: 125 mls/hr Documented By: ROSE Levothyroxine Sodium (Levothyroxine Sodium 75 Mcg Tablet) 75 mcg PO DAILY@0600 [facility] Last Admin: 10/15/23 06:24 Dose: 75 mcg Documented By: VIOLET Losartan Potassium (Losartan Potassium 25 Mg Tablet) 25 mg PO BEDTIME [facility]; Protocol Last Admin: 10/14/23 20:17 Dose: 25 mg Documented By: VIOLET Melatonin (Melatonin 3 Mg Tablet) 6 mg PO BEDTIME PRN PRN Reason: Insomnia Methylprednisolone Sodium Succinate (Methylprednisolone Sod Succ 40 Mg/Ml Vial) 40 mg IVPUSH Q12H [facility] Last Admin: 10/15/23 01:19 Dose: 40 mg Documented By: VIOLET Montelukast Sodium (Montelukast Sodium 10 Mg Tablet) 10 mg PO BEDTIME [facility] Last Admin: 10/14/23 20:17 Dose: 10 mg Documented By: VIOLET Ondansetron HCl (Ondansetron Hcl 4 Mg/2 Ml Vial) 4 mg IVPUSH Q8H PRN PRN Reason: Nausea and Vomiting Oseltamivir Phosphate (Oseltamivir Phosphate 75 Mg Capsule) 75 mg PO Q12H [facility] Stop: 10/18/23 22:31 Last Admin: 10/15/23 10:43 Dose: 75 mg Documented By: ROSE Sodium Chloride (0.9 % Sodium Chloride Flush 3 Ml Syringe) 3 ml IVFLUSH QSHIFT [facility] Last Admin: 10/15/23 09:45 Dose: 3 ml Documented By: ROSE <FAUSTO Denton - Last Filed: 10/15/23 12:23> Labs CBC & Chem 7: 10/14/23 09:10 10/15/23 05:37 <FAUSTO Denton - Last Filed: 10/15/23 12:23> Labs: Laboratory Results - last 24 hr 10/14/23 10/15/23 15:49 05:37 Hold Purple Top SEE NOTE Anion Gap 15 Estim Creat Clear Calc 69.4 Estimated GFR > 60 Random Glucose 140 H Calcium 9.3 Total Bilirubin 0.7 AST 17 ALT 11 Alkaline Phosphatase 45 Total Protein 6.8 Albumin 3.8 Urine Color Yellow Urine Appearance Clear Urine pH 6.5 Ur Specific [place] >= 1.030 H Urine Protein Trace Urine Glucose (UA) Negative Urine Ketones 15 Urine Blood Negative Urine Nitrite Negative Ur Leukocyte Esterase Negative <FAUSTO Denton - Last Filed: 10/15/23 12:23> Microbiology Microbiology Results: Microbiology 10/14/23 09:35 Blood Culture - Preliminary Blood - Venous No growth after 24 hours. 10/14/23 09:10 Blood Culture - Preliminary Blood - Venous No growth after 24 hours. <FAUSTO Denton - Last Filed: 10/15/23 12:23> Assessment and Plan (1) Hypoxia: Status: Acute <FAUSTO Denton - Last Filed: 10/15/23 12:23> (2) Asthma exacerbation: Status: Acute <FAUSTO Denton Last Filed: 10/15/23 12:23> (3) Influenza A: Status: Acute <FAUSTO Denton - Last Filed: 10/15/23 12:23> Assessment and Plan: Pt is a 58-year-old female with a PMH significant for?moderate persistent asthma, HTN, and hypothyroidism who presented to the ED with?hypoxia, SOB, and productive cough for the past 4-5 days. Pt was admitted to the hospital for treatment further evaluation of acute hypoxic respiratory failure in setting of influenza type B infection, community-acquired pneumonia, and acute asthma exacerbation. Acute hypoxic respiratory failure in the setting of influenza type a infection Continue Tamiflu, started 10/14/2023 Continue Mucinex DM b.i.d. Titrate supplemental O2>92, wean as tolerated Community-acquired pneumonia with sepsis Continue ceftriaxone and azithromycin, started 10/14/2023 Acute moderate persistent asthma exacerbation Continue DuoNebs, Solu-Medrol Continue home maintenance inhalers Monitor respiratory status Hyperbilirubinemia, resolved Total bili mildly elevated at 1.2 at time of presentation Patient asymptomatic Repeat labs with total bili WNL at 0.7 Hypothyroidism Continue levothyroxine HTN Continue losartan Patient requires continued hospitalization due to continued acute respiratory failure in the setting of flu, pneumonia, and asthma exacerbation. Patient requires continued supplemental O2, and treatment with IV steroids, breathing treatments, and IV antibiotics. <FAUSTO Denton Last Filed: 10/15/23 12:23> Quality Stroke Does the patient have a stroke diagnosis?: No <FAUSTO Denton Last Filed: 10/15/23 12:23> VTE Prior VTE?: No <FAUSTO Denton - Last Filed: 10/15/23 12:23> VTE Risk Level:: Medical - moderate - high <FAUSTO Denton Last Filed: 10/15/23 12:23> VTE Device Contraindication: Treatment Not Indicated <FAUSTO Denton Last Filed: 10/15/23 12:23> VTE Drug Contraindication: N/A - Med Ordered <FAUSTO Denton Last Filed: 10/15/23 12:23>
[2023-10-15] MEDS: Enoxaparin Sodium 40 MG/0.4 ML SYRINGE SUBCUT (14:29)
--- NOTE | 2023-10-15 16:27 | MHC.CM.PN ---
PT REPORTS SHE LIVES AT HOME WITH HER AND IS INDEPENDENT WITH CARE SHE HAS NO DME AND NO HOME SERVICES SHE WILL CONSIDER COMPLETING A HCP, CM WILL F/U TOMORROW PCP: GÓMEZ SILVEIRA DCP: HOME NO SERVICES VIA FAMILY TRANSPORT
--- NOTE | 2023-10-15 18:16 | PC.NURSE ---
Patient resting in bed ,denies difficulty breathing
[2023-10-15] MEDS: Montelukast Sodium 10 MG TABLET PO (22:34)
[2023-10-15] MEDS: Losartan Potassium 25 MG TABLET PO (22:34)
[2023-10-16] VITALS (8 sets, daily range): BP systolic 129–141; BP diastolic 67–70; PULSE 71–101; RESP 18; TEMP 36.6–37.1; O2SAT 92–96
[2023-10-16] MEDS: methylPREDNISolone Sod Succ 40 MG/ML VIAL IVPUSH (01:00)
[2023-10-16] MEDS: Levothyroxine Sodium 75 MCG TABLET PO (06:04)
[2023-10-16] MEDS: Acetaminophen 325 MG TABLET 650 MG PO ×3 (06:36→21:22)
[2023-10-16] MEDS: Fluticasone/Vilanterol 200/25 BLST.W.DEV 2 PUFF INHALE (07:32)
[2023-10-16] MEDS: Albuterol/Iprat 2.5/0.5MG 3 ML AMPUL.NEB INHALE ×4 (07:32→19:41)
--- NOTE | 2023-10-16 09:17 | HO.PM.IMPN ---
Subjective Subjective Date of Service: 10/16/23 Interval History: She is overall feeling better, still has cough Physical Exam Vital Signs: Vital Signs: Last Vital Signs Temp 97.9 F 10/16/23 08:00 Pulse 101 H 10/16/23 08:00 Resp 18 10/16/23 08:00 BP 137/67 10/16/23 08:00 Pulse Ox 92 10/16/23 08:00 O2 Del Method Room Air 10/16/23 08:00 O2 Flow Rate 2 10/16/23 00:00 BMI result Body Mass Index 18.9 Const: Other: General: AO X 3, no acute distress Resp: bilateral rhonchi CVS: S1,S2,RRR GI: +BS, NT, no distention Skin: No rash Neuro: motor grossly intact Psych: appropriate affect Objective Data Active Medications Acetaminophen (Acetaminophen 325 Mg Tablet) 650 mg PO Q6H PRN PRN Reason: Pain, Mild (Pain Scale 1-3) Last Admin: 10/16/23 06:36 Dose: 650 mg Documented By: YOBANY Albuterol/Ipratropium (Albuterol/Iprat 2.5/0.5mg 3 Ml Ampul.Neb) 3 ml INHALE RQ4H WHILE AWAKE [facility] Last Admin: 10/16/23 07:32 Dose: 3 ml Documented By: GABBY Aspirin (Aspirin Enteric Coated 81 Mg Tablet.Dr) 81 mg PO DAILY [facility] Last Admin: 10/15/23 09:45 Dose: 81 mg Documented By: ROSE Calcium Carbonate (Calcium Carbonate 500 Mg Tablet) 500 mg PO DAILY [facility] Last Admin: 10/15/23 09:45 Dose: 500 mg Documented By: ROSE Docusate Sodium (Docusate Sodium 100 Mg Capsule) 100 mg PO DAILY PRN PRN Reason: Constipation Enoxaparin Sodium (Enoxaparin Sodium 40 Mg/0.4 Ml Syringe) 40 mg SUBCUT Q24H [facility] Last Admin: 10/15/23 14:29 Dose: 40 mg Documented By: ROSE Fluticasone/Vilanterol (Fluticasone/Vilanterol 200/25 Blst.W.Dev) 2 puff INHALE RDAILY [facility] Last Admin: 10/16/23 07:32 Dose: 2 puff Documented By: GABBY Guaifenesin/Dextromethorphan (Guaifenesin Dm 600/30 1 Tab Tab.Er.12h) 1 tab PO BID [facility] Last Admin: 10/15/23 22:34 Dose: 1 tab Documented By: YOBANY Ceftriaxone Sodium 1 gm/ (Sodium Chloride) 50 mls @ 100 mls/hr IV Q24H [facility] Last Infusion: 10/15/23 11:33 Dose: Infused Documented By: ROSE Azithromycin 500 mg/ Sodium (Chloride) 250 mls @ 125 mls/hr IV Q24H [facility] Last Infusion: 10/15/23 13:53 Dose: Infused Documented By: ROSE Levothyroxine Sodium (Levothyroxine Sodium 75 Mcg Tablet) 75 mcg PO DAILY@0600 [facility] Last Admin: 10/16/23 06:04 Dose: 75 mcg Documented By: YOBANY Losartan Potassium (Losartan Potassium 25 Mg Tablet) 25 mg PO BEDTIME [facility]; Protocol Last Admin: 10/15/23 22:34 Dose: 25 mg Documented By: YOBANY Melatonin (Melatonin 3 Mg Tablet) 6 mg PO BEDTIME PRN PRN Reason: Insomnia Methylprednisolone Sodium Succinate (Methylprednisolone Sod Succ 40 Mg/Ml Vial) 40 mg IVPUSH Q12H [facility] Last Admin: 10/16/23 01:00 Dose: 40 mg Documented By: YOBANY Montelukast Sodium (Montelukast Sodium 10 Mg Tablet) 10 mg PO BEDTIME [facility] Last Admin: 10/15/23 22:34 Dose: 10 mg Documented By: YOBANY Ondansetron HCl (Ondansetron Hcl 4 Mg/2 Ml Vial) 4 mg IVPUSH Q8H PRN PRN Reason: Nausea and Vomiting Oseltamivir Phosphate (Oseltamivir Phosphate 75 Mg Capsule) 75 mg PO Q12H [facility] Stop: 10/18/23 22:31 Last Admin: 10/15/23 22:35 Dose: 75 mg Documented By: YOBANY Sodium Chloride (0.9 % Sodium Chloride Flush 3 Ml Syringe) 3 ml IVFLUSH QSHIFT [facility] Last Admin: 10/15/23 22:35 Dose: 3 ml Documented By: YOBANY Labs 10/14/23 09:10 10/15/23 05:37 Microbiology Microbiology Results: Microbiology 10/14/23 09:35 Blood Culture - Preliminary Blood - Venous No growth after 24 hours. 10/14/23 09:10 Blood Culture - Preliminary Blood - Venous No growth after 24 hours. Assessment and Plan (1) Hypoxia: Status: Acute (2) Asthma exacerbation: Status: Acute (3) Influenza A: Status: Acute Plan Pt is a 58-year-old female with a PMH significant for?moderate persistent asthma, HTN, and hypothyroidism who presented to the ED with?hypoxia, SOB, and productive cough for the past 4-5 days. Pt was admitted to the hospital for treatment further evaluation of acute hypoxic respiratory failure in setting of influenza type B infection, community-acquired pneumonia, and acute asthma exacerbation. Acute hypoxic respiratory failure in the setting of influenza A infection Continue Tamiflu, started 10/14/2023 for 5 days Continue Mucinex DM b.i.d. Titrate supplemental O2>92, wean as tolerated Community-acquired pneumonia with sepsis Continue ceftriaxone and azithromycin, started 10/14/2023 Acute moderate persistent asthma exacerbation Continue DuoNebs, Solu-Medrol (change to PO) Continue home maintenance inhalers Monitor respiratory status Hyperbilirubinemia, resolved Total bili mildly elevated at 1.2 at time of presentation Patient asymptomatic Repeat labs with total bili WNL at 0.7 Hypothyroidism Continue levothyroxine HTN Continue losartan Patient requires continued hospitalization due to continued acute respiratory failure in the setting of flu, pneumonia, and asthma exacerbation. Patient requires continued supplemental O2, and treatment with IV steroids, breathing treatments, and IV antibiotics. Maybe dc tomorrow if continues to make progress Quality Stroke Does the patient have a stroke diagnosis?: No VTE Prior VTE?: No VTE Risk Level:: Medical - moderate - high VTE Device Contraindication: Treatment Not Indicated VTE Drug Contraindication: N/A - Med Ordered
[2023-10-16] MEDS: Aspirin Enteric Coated 81 MG TABLET.DR PO (09:55)
[2023-10-16] MEDS: guaiFENesin DM 600/30 1 TAB TAB.ER.12H PO ×2 (09:56→21:21)
[2023-10-16] MEDS: Oseltamivir Phosphate 75 MG CAPSULE PO ×2 (09:56→21:21)
[2023-10-16] MEDS: cefTRIAXone sodium 1 GM in 0.9 % Sodium Chloride 50 ML IV (09:56)
[2023-10-16] MEDS: Azithromycin 500 MG in 0.9 % Sodium Chloride 250 ML 125 MG IV (11:19)
[2023-10-16] MEDS: Enoxaparin Sodium 40 MG/0.4 ML SYRINGE SUBCUT (13:29)
[2023-10-16] MEDS: Losartan Potassium 25 MG TABLET PO (21:21)
[2023-10-16] MEDS: Montelukast Sodium 10 MG TABLET PO (21:21)
[2023-10-16] MEDS: 0.9 % Sodium Chloride Flush 3 ML SYRINGE IVFLUSH (21:22)
[2023-10-17] MEDS: Levothyroxine Sodium 75 MCG TABLET PO (06:27)
[2023-10-17 07:19] VITALS: BP 130/70; PULSE 66; RESP 16; TEMP 36.9; O2SAT 94
[2023-10-17 08:37] VITALS: PULSE 83; RESP 18; O2SAT 98
[2023-10-17] MEDS: Fluticasone/Vilanterol 200/25 BLST.W.DEV 2 PUFF INHALE (08:37)
[2023-10-17] MEDS: Albuterol/Iprat 2.5/0.5MG 3 ML AMPUL.NEB INHALE ×2 (08:37→11:25)
--- NOTE | 2023-10-17 08:38 | P.DS_ITS ---
DS: Providers Provider Date of Service: 10/17/23 Date of admission: 10/14/23 13:03 Primary care physician: Veronica Sanchez MD DS: Diagnosis Discharge Diagnosis (1) Hypoxia: Status: Acute (2) Asthma exacerbation: Status: Acute (3) Influenza A: Status: Acute DS: Summary Hospital Course Hospital Course: Admission HPI Chief Complaint: SOB Pt is a 58-year-old female with a PMH significant for?mild persistent asthma, HTN, and hypothyroidism who presents to the ED with?hypoxia, SOB, and productive cough for the past 4-5 days. Patient lives with her , who became ill approximately 1 week ago with nonproductive cough and fever. Symptoms last 24 hours and then he felt better. Patient began feeling ill 1-2 days later when she developed cough, low-grade fever, myalgias, and headache. Cough has been productive of thick green sputum. Also has had some nausea and vomiting. Patient checked her O2 sat earlier today which was low at 86%, which prompted her visit to the ED for further evaluation. Patient is not on home O2. Has experienced some chest tightness associated with both cough and breathing. In the ED pt was elevated temp of 100.0 degrees, tachycardia 107, tachypnea up to 22, hypertensive up to 150/69, and satting at 88% on RA. Labs were significant for patient tested positive for influenza type A, otherwise grossly unremarkable. No leukocytosis. Stable H&H. Electrolytes WNL. Renal function WNL. Hepatic function WNL. Troponin negative, BNP negative. Lactic acid WNL at 1.1. CXR showed linear atelectasis and small patchy opacities toward the bases bilaterally. CTA ?showed no evidence of pulmonary emboli, but did show multifocal patchy changes in both lower lobes with associated mucoid impaction of multiple bronchi. EKG demonstrated sinus tachycardia with non specific ST elevations and depressions. Pt was treated with DuoNebs, ceftriaxone, azithromycin, ondansetron, and Tamiflu. Pt will be admitted to the hospital for treatment further evaluation of acute hypoxic respiratory failure in setting of influenza type B infection, community-acquired pneumonia, and acute asthma exacerbation. Hospital course: The patient was admitted and treated for acute hypoxic respiratory failure due to Influenza A, complicated by pneumonia and an asthma exacerbation. Initially hypoxic, she required oxygen support. Influenza was managed symptomatically along with Tamiflu, which she will need to continue for a total of 5 days. Superimposed pneumonia, potentially flu-related, although bacterial pneumonia ca nnot be ruled out, was treated with ceftriaxone and azithromycin. As the patient is currently doing well, she will transition to oral cefuroxime (Ceftin) and complete a total of 10 days of antibiotics. The asthma exacerbation was managed using bronchodilators via nebulizer and IV steroids (Solu-Medrol). Once her condition improved, she was switched to oral prednisone and will complete a 5-day course of steroids. The patient is presently breathing comfortably, off oxygen, with clear lungs, and expresses a desire to return home. Final diagnosis: Acute hypoxic respiratory failure influenza a acute moderate persistent asthma with exacerbation Time Attestation Discharge coordination time: Greater than 30 minutes Quality: Safe Use of Opioids Does Pt have an Active Cancer Diagnosis on the Problem List?: No Quality: Stroke Does the patient have a stroke diagnosis?: No Physical Exam Vital Signs: Vital Signs: Last Vital Signs Temp 98.4 F 10/17/23 07:19 Pulse 66 10/17/23 07:19 Resp 16 10/17/23 07:19 BP 130/70 10/17/23 07:19 Pulse Ox 94 10/17/23 07:19 O2 Del Method Room Air 10/17/23 07:19 O2 Flow Rate 2 10/16/23 00:00 BMI result Body Mass Index 18.9 Const: Other: General: AO X 3, no acute distress Resp: CTA bilateral CVS: S1,S2,RRR GI: +BS, NT, no distention Skin: No rash Neuro: motor grossly intact Psych: appropriate affect DS: Data Data Completed and Pending Labs on day of discharge: Preliminary micro results at discharge 10/14/23 09:35 Blood Culture - Preliminary Blood - Venous No growth after 48 hours. 10/14/23 09:10 Blood Culture - Preliminary Blood - Venous No growth after 48 hours. Discharge Plan Discharge Anticipated Discharge Date/Time: 10/17/23 08:29 Patient Disposition: Home, Self-Care Discharge Diagnosis: Pneumonia, Influenza, asthma exacerbation Referrals: Veronica Sanchez MD [Primary Care Provider] - 1 Week Discharge Medications: New cefuroxime axetil 500 mg tablet 500 mg PO BID 7 Days Qty: 14 0RF prednisone 20 mg tablet 40 mg PO DAILY Qty: 4 0RF albuterol sulfate 90 mcg/actuation HFA aerosol inhaler 2 inh inhalation Q6-8H PRN (Reason: shortness of breath) Qty: 18 0RF oseltamivir [Tamiflu] 75 mg Capsule 75 mg PO Q12H Qty: 3 0RF Robitussin Cough-Chest Bill DM 5-100 mg/5 mL liquid 10 ml PO Q4-8H PRN (Reason: cough) Qty: 118 0RF Continued levothyroxine 75 mcg tablet 75 mcg PO DAILY@0600 losartan 25 mg tablet 25 mg PO BEDTIME montelukast 10 mg tablet 10 mg PO BEDTIME budesonide-formoterol [Symbicort] 160-4.5 mcg/actuation HFA aerosol inhaler 2 puff INHALATION BID aspirin 81 mg Tablet,Delayed Release (Dr/Ec) 81 mg PO DAILY calcium carbonate [Calcium 500] 500 mg calcium (1,250 mg) Tablet 500 mg PO DAILY Discharge Orders: Discharge Order (Routine); Ordered 10/17/23 Ordered By: Jimbo Cole Diet: Advance to usual diet Activity on Discharge: As tolerated Stand Alone Forms: Patient Portal Discharge page Care Plan Goals: Health Concerns: Full recovery from influenza and pneumonia. Plan of Treatment: Take cefuroxime (Ceftin ) to treat pneumonia. Take prednisone for asthma exacerbation along with inhalers Take Robitussin for cough as needed take Tamiflu for influenza ( flu ). Follow-up with your doctor in a week call for appointment. Assessment: see above
--- NOTE | 2023-10-17 09:42 | MHC.CM.PN ---
Addendum entered by Marija Genao 10/17/23 12:56: PT COMPLETED A NEW HCP PRIOR TO DC NAMING HER GRZEGORZ, AND DAUGHTER, VINCE, HER AGENTS Original Note: PT WILL DC HOME TODAY WITH NO SERVICES PT TO ARRANGE TRANSPORT
[2023-10-17] MEDS: Oseltamivir Phosphate 75 MG CAPSULE PO (10:06)
[2023-10-17] MEDS: predniSONE 20 MG TABLET 40 MG PO (10:06)
[2023-10-17] MEDS: guaiFENesin DM 600/30 1 TAB TAB.ER.12H PO (10:06)
[2023-10-17] MEDS: Aspirin Enteric Coated 81 MG TABLET.DR PO (10:06)
[2023-10-17] MEDS: Azithromycin 500 MG TABLET PO (10:57)
[2023-10-17] MEDS: Acetaminophen 325 MG TABLET 650 MG PO (10:57)
[2023-10-17] MEDS: cefTRIAXone sodium 1 GM in 0.9 % Sodium Chloride 50 ML IV (10:57)
[2023-10-17 11:27] VITALS: PULSE 69; RESP 16; O2SAT 98
== END 2023-10-17 13:51 | disposition home or self-care (01) | DRG 720 ==
LOC: HO.ED 08:48 → HO.EDOVER 13:13 → HO.S3 18:51
PROVIDERS: Physician Assistant Medical; Admitting Provider Student in an Organized Health Care Education/Training Program; Emergency Provider Emergency Medicine Emergency Medical Services; PCP Student in an Organized Health Care Education/Training Program; Visit Provider Internal Medicine
DX: A41.9 Sepsis, unspecified organism (principal); J96.01 Acute respiratory failure with hypoxia; J15.9 Unspecified bacterial pneumonia; J10.01 Influenza due to other identified influenza virus with the same other identified influenza virus pneumonia; E03.9 Hypothyroidism, unspecified; J45.31 Mild persistent asthma with (acute) exacerbation; I10 Essential (primary) hypertension; Z20.822 Contact with and (suspected) exposure to COVID-19; Z79.82 Long term (current) use of aspirin; Z79.890 Hormone replacement therapy; Z79.899 Other long term (current) drug therapy
CPT/HCPCS: 0241U; 36415; 71046; 71275; 80053; 81003; 82803; 83605; 83690; 83735; 83880; 84484; 85025; 85379; 85610; 87040; 93005; 94640; 99285; J0456; J0696; J1650; J2405; J2920; Q9967

== ENCOUNTER → 2023-10-14 08:53 | Outpatient (BNV) | payer OTHER, SELFPAY | PROVIDERS: Admitting Provider Student in an Organized Health Care Education/Training Program; Emergency Provider Emergency Medicine Emergency Medical Services; PCP Student in an Organized Health Care Education/Training Program; Visit Provider Internal Medicine Cardiovascular Disease | DX: R00.0 Tachycardia, unspecified (principal); R94.31 Abnormal electrocardiogram [ECG] [EKG] | CPT/HCPCS: 93010 ==

== ENCOUNTER → 2023-10-14 13:03 | Outpatient (BNV) | payer OTHER, SELFPAY | PROVIDERS: Admitting Provider Student in an Organized Health Care Education/Training Program; Emergency Provider Emergency Medicine Emergency Medical Services; PCP Student in an Organized Health Care Education/Training Program; Visit Provider Student in an Organized Health Care Education/Training Program | DX: R09.02 Hypoxemia (principal); J45.901 Unspecified asthma with (acute) exacerbation; J10.1 Influenza due to other identified influenza virus with other respiratory manifestations | CPT/HCPCS: 99223; 99232; 99233; 99239 ==

== ENCOUNTER 2024-06-09 08:36 | Outpatient (REF) | payer BC, SELFPAY ==
--- NOTE | ~2024-06-09 | MM_ITS ---
EXAMINATION: MM SCREENING DIGITAL BREAST TOMOSYNTHESIS, BILATERAL CLINICAL INFORMATION: Screening. Asymptomatic. The patient has a history of benign left excisional biopsy. COMPARISON: Mammography: This study is compared with prior exams dating back to 2020. TECHNIQUE: Digital breast tomosynthesis is performed in both the craniocaudal and mediolateral oblique views along with computer-aided detection (CAD). Synthesized 2D images are generated from the tomosynthesis. FINDINGS: There are scattered areas of fibroglandular density (ACR BI-RADS breast composition Category b). There are no significant masses, abnormal calcifications, or other abnormalities. MM/MM tomosynthesis screening BI IMPRESSION: No mammographic evidence of malignancy. ASSESSMENT: BI-RADS BI-RADS 1 - Negative RECOMMENDATION: Routine annual mammography screening. 1 year F/U This examination should not preclude the clinical evaluation of a suspicious palpable abnormality. This patient's information was entered into a reminder system with a target due date for their next mammogram. Electronically signed by: Leah Patel MD 07/08/2024 03:25 PM EDT
== END 2024-06-09 08:37 | disposition home or self-care (01) ==
LOC: HO.MAMMO 08:36
PROVIDERS: PCP Student in an Organized Health Care Education/Training Program; Visit Provider Obstetrics & Gynecology
DX: Z12.31 Encounter for screening mammogram for malignant neoplasm of breast (principal)
CPT/HCPCS: 77063; 77067

== ENCOUNTER → 2024-06-09 08:45 | Outpatient (BNV) | payer BC, SELFPAY | PROVIDERS: PCP Student in an Organized Health Care Education/Training Program; Visit Provider Radiology Diagnostic Radiology | DX: Z12.31 Encounter for screening mammogram for malignant neoplasm of breast (principal) | CPT/HCPCS: 77063; 77067 ==

== ENCOUNTER 2025-04-10 09:26 | Inpatient (IN) | payer BC, SELFPAY ==
[2025-04-10] VITALS (10 sets, daily range): BP systolic 105–147; BP diastolic 50–78; PULSE 81–122; RESP 14–25; TEMP 36.5–37.3; O2SAT 92–97; BMI 18.8
--- NOTE | ~2025-04-10 | XR_ITS ---
EXAMINATION: XR CHEST CLINICAL INFORMATION: dyspnea cough COMPARISON: 10/14/2023. TECHNIQUE: Frontal view of the chest was obtained. FINDINGS: The cardiac, hilar, and mediastinal contours are normal. Lungs are mildly hyperaerated bilaterally, however clear. No pneumothorax or effusion. No focal osseous or soft tissue abnormality. There is scoliosis of the thoracolumbar spine. XR/XR chest 1V IMPRESSION: No active pulmonary disease. Electronically signed by: Addy Rice MD 04/10/2025 10:16 AM EDT
--- NOTE | 2025-04-10 09:37 | ECG_ITS ---
Test Reason : DYSPNEA Blood Pressure : */* mmHG Vent. Rate : 84 BPM Atrial Rate : 84 BPM P-R Int : 150 ms QRS Dur : 72 ms QT Int : 344 ms P-R-T Axes : 61 53 64 degrees QTcB Int : 406 ms Normal sinus rhythm Abnormal ECG When compared with ECG of 14-Oct-2023 09:26, No significant changes seen Referred By: Generic ED Physician Electronically Signed By: Alverto Witt
--- NOTE | 2025-04-10 09:44 | ED_ITS ---
HPI - General Adult General Chief complaint: Dyspnea Stated complaint: Asthma attack? high blood pres Time Seen by Provider: 04/10/25 09:44 Source: patient Mode of arrival: ambulatory Limitations: no limitations History of Present Illness ED Provider: Kristen Hollingsworth PA-C HPI narrative: Patient is a 59 year old assigned female at with a history of asthma presenting to the emergency department today with worsening shortness of breath. Patient states that over the last few days she has had a cough and shortness of breath for which she has been using duonebs at home. Patient states that she was seen last week and started on prednisone however, the coughing + wheezing + SOB continues. Patient denies any dizziness, lightheadedness, abdominal pain, nausea, vomiting, fever, chills, blurry vision, double vision, loss of vision, chest pain, back pain, night sweats, pain with urination, increased urinary frequency, increased urinary urgency, blood in her urine or stool, syncope or a near syncopal episode, recent trauma or falls, bowel incontinence, bladder incontinence, or any other complaints at this time. Onset (ago): day(s) Relieving factors: none Exacerbating factors: none Associated symptoms: cough and shortness of breath Treatments prior to arrival: other (Prednisone + Duonebs) Related Data Home Medications ?Medication ?Instructions ?Recorded ?Confirmed aspirin 81 mg tablet,delayed 81 mg PO DAILY 10/14/23 10/14/23 release budesonide-formoterol HFA 160 2 puff inhalation BID 10/14/23 10/14/23 mcg-4.5 mcg/actuation aerosol inhaler (Symbicort) calcium carbonate 500 mg PO DAILY 10/14/23 10/14/23 levothyroxine 75 mcg tablet 75 mcg PO DAILY@0600 10/14/23 10/14/23 losartan 25 mg tablet 25 mg PO BEDTIME 10/14/23 10/14/23 montelukast 10 mg tablet 10 mg PO BEDTIME 10/14/23 10/14/23 Previous Rx's ?Medication ?Instructions ?Recorded albuterol sulfate 90 mcg/actuation 2 inh inhalation Q6-8H PRN 10/17/23 aerosol inhaler shortness of breath #18 grams cefuroxime axetil 500 mg tablet 500 mg PO BID 7 days #14 tabs 10/17/23 dextromethorphan-guaifenesin 5 10 ml PO Q4-8H PRN cough #118 mL 10/17/23 mg-100 mg/5 mL oral liquid (Robitussin Cough-Chest Congestion DM) oseltamivir 75 mg capsule (Tamiflu) 75 mg PO Q12H #3 caps 10/17/23 prednisone 20 mg tablet 40 mg (2 x 20 mg) PO DAILY #4 tabs 10/17/23 Allergies Allergy/AdvReac Type Severity Reaction Status Date / Time sulfamethoxazole Allergy Rash Verified 04/10/25 09:34 [From Bactrim] trimethoprim [From Bactrim] Allergy Rash Verified 04/10/25 09:34 Review of Systems 2 Constitutional: Constitutional: Reports no additional constitutional complaints, Denies chills, Denies fever(s) and Denies night sweats Eyes: Eyes: Reports no additional eye complaints, Denies blurry vision, Denies change in vision, Denies diplopia, Denies eye discharge, Denies loss of vision and Denies eye pain ENT: Denies dizziness Cardiovascular: Cardiovascular: Reports no additional cardiovascular complaints, Denies chest pain, Denies lightheadedness, Denies Loss of Consciousness and Reports dyspnea Respiratory: Respiratory: Reports no additional respiratory complaints, Reports cough, Reports dyspnea and Reports wheezing Gastrointestinal: Gastrointestinal: Reports no additional gastrointestinal complaints, Denies abdominal pain, Denies melena, Denies hematochezia, Denies change in bowel habits and Denies change in stool character Genitourinary: Genitourinary: Denies hematuria, Denies urinary frequency, Denies dysuria, Denies urinary incontinence, Denies urinary hesitancy and Denies urinary urgency Musculoskeletal: Musculoskeletal: Reports no additional musculoskeletal complaints, Denies numbness and Denies tingling Neurologic: Denies dizziness, Denies loss of vision, Denies numbness and Denies tingling Psychiatric: Psychiatric: Reports no additional psychiatric complaints Endocrine: Endocrine: Reports no additional endocrine complaints Hematologic/Lymphatic: Hematologic/Lymphatic: Reports no additional hematologic/lymphatic complaints Allergic/Immunologic: Allergic/Immunologic: Reports no additional allergic/immunologic complaints and Reports wheezing PMFSH Past Medical History Attestation statement: The following information was validated with the patient. Source: old records reviewed and nursing notes reviewed Social History Social History Household Members: Spouse Housing: House Do you presently have visiting nurse or other home services: No Patient Tobacco Use Status: Never used Tobacco Smoked in Last 30 Days: No Use of substances other than those prescribed or required for medical reasons: No Advance Directives: No Advance Directives Information Provided: Yes service: No Physical Exam ED Vital Signs: Vital Signs - 24 hr 04/10/25 09:33 04/10/25 10:51 Temperature 98.4 F Pulse Rate 91 81 Respiratory Rate 20 24 H Blood Pressure 147/74 H Pulse Oximetry 94 Oxygen Delivery Method Room Air BMI result Body Mass Index 18.8 Const General: cooperative, no acute distress, alert and awake Nutritional Appearance: well nourished Orientation/consciousness: patient oriented x3 HENMT Head: Yes normal to inspection and Yes atraumatic Ears: hearing grossly normal bilaterally and external ears normal General nose exam: Normal external nose present, no nasal discharge noted and no epistaxis Face and sinus: Yes normal facial exam, No abrasion and No laceration Mouth: Normal oral and palatal mucosa present, no drooling and no muffled voice Eyes General: appearance normal, both eyes and all related structures Periorbital: periorbital findings normal Eyelids: Yes eyelids normal Conjunctivae: conjunctivae normal Pupils: Equal, round and reactive pupils present EOM: EOMs intact bilaterally Neck Neck: Yes normal visual inspection, Yes full ROM and Yes no lymphadenopathy Resp Effort & Inspection: able to speak in complete sentences and Actively coughing Auscultation: wheezes expiratory wheezes and scattered wheezes Neuro General: patient oriented x3, moves all extremities and CN's II-XI intact bilaterally Cranial nerves: Yes Equal, round and reactive pupils present Cognition (Neuro): normal cognition Extrem General: Yes normal to inspection, Yes full ROM and Yes capillary refill normal Psych Appearance: grossly normal Mental Status: mental status grossly normal Affect: normal affect Attitude: cooperative Thought process: Normal thought process present Thought content: Normal thought content present Insight: Good insight present (Psych) Medications Administered Generic Name Dose Route Start Last Admin Trade Name Freq PRN Reason Stop Dose Admin Magnesium Sulfate 2 gm in 50 mls @ 25 mls/hr 04/10/25 09:50 04/10/25 09:55 Magnesium Sulfate/H2o IV 04/10/25 11:49 25 mls/hr ONCE ONE Administration Discontinued Medications Generic Name Dose Route Start Last Admin Trade Name Freq PRN Reason Stop Dose Admin Albuterol Sulfate 5 mg/ 0 mg 04/10/25 10:51 04/10/25 10:57 Albuterol/Ipratropium 3 ml INHALE 04/10/25 10:52 7.5 each ONCE ONE Administration Methylprednisolone Sodium Succinate 60 mg 04/10/25 09:50 04/10/25 09:56 Methylprednisolone Sod Succ 125 Mg Vial IVPUSH 04/10/25 09:51 60 mg ONCE ONE Administration Medical Decision Making Medical Decision Making [facility] Narrative: Patient is a 59 year old assigned female at with a history of asthma presenting to the emergency department today with worsening shortness of breath. Patient's physical exam was as noted in the physical exam portion of this note. Patient had wheezing and some labored breathing. Patient's blood work was unremarkable. Patient's EKG was unremarkable. Patient's chest x-ray showed no acute process. Patient's clinical presentation is most consistent with an extensive asthma exacerbation. I explained my physical exam findings as well as all test results to the patient. I answered all questions asked by the patient. Patient received IV solu-medrol, magnesium, and duonebs which, upon re- evaluation, she stated it helped her symptoms some. I spoke with the hospitalist team who agreed to admission for continued asthma exacerbation management. Patient verbalized agreement and understanding with this treatment plan and admission. Differential Diagnosis Differential Diagnoses: The differential diagnosis associated with the presentation includes Shortness of breath Asthma exacerbation Wheezing Admission/Observation Consideration of admission/observation: Escalation of care including admission/observation considered Patient admitted as noted in the MDM Rationale portion of this note. Consult Healthcare Provider Management of the patient was discussed with: Hospitalist (Agreed to admission as noted in the MDM Rationale portion of this note. ) Lab Data [facility] Lab Attestation statement: I reviewed the patient's lab results. My interpretation of these results are in the MDM Rationale portion of this note. 04/10/25 09:50 04/10/25 09:50 Labs: Lab Results 04/10/25 04/10/25 04/10/25 Range/Units 09:50 10:03 10:07 WBC 10.0 (4.8-10.8) X10*3/uL RBC 4.10 L (4.20-5.50) X10*6/uL Hgb 12.7 (12.0-16.0) g/dl Hct 36.8 L (37.0-47.0) % MCV 89.8 (80.0-98.0) fL MCH 31.0 (27.0-33.0) pg MCHC 34.5 (31.0-35.0) g/dl RDW 12.6 (11.0-16.0) % Plt Count 208 (160-400) X10*3/uL MPV 9.5 (9.4-12.3) fL Immature Gran % (Auto) 0.7 H (0.0-0.4) % Neut % (Auto) 87.1 H (45-73) % Lymph % (Auto) 6.8 L (20-40) % [place] % (Auto) 5.3 (2-11) % Eos % (Auto) 0.0 (0-4) % Baso % (Auto) 0.1 (0-2) % Lymph # (Auto) 0.7 L (1.2-4.9) X10*3/uL [place] # (Auto) 0.5 (0.1-1.2) X10*3/uL Eos # (Auto) 0.0 (0.0-0.4) X10*3/uL Baso # (Auto) 0.0 (0.0-0.2) X10*3/uL Abs Immat Gran (auto) 0.07 H (0.00-0.03) X10*3/uL Absolute Neuts (auto) 8.7 H (2.0-8.3) x10*3/uL Absolute Nucleated RBC 0.000 (0.0-0.012) X10*3/uL Nucleated RBC % (auto) 0.0 (0.0-0.2) /100WBC VBG pH 7.50 H (7.32-7.43) VBG pCO2 30 mmHg VBG pO2 161 mmHg VBG HCO3 24 (22-26) mmol/L VBG O2 Saturation 100.0 % VBG Base Excess 1.9 mmol/L Sodium 142 (135-145) mmol/L Potassium 3.8 (3.3-5.1) mmol/L Chloride 109 H (96-108) mmol/L Carbon Dioxide 24 (22-29) mmol/L Anion Gap 13 (12-20) BUN 13 (9-16) mg/dL Creatinine 0.65 (0.5-1.4) mg/dL Estim Creat Clear Calc 71.4 Estimated GFR > 60 Random Glucose 113 (60-115) mg/dL Calcium 9.5 (8.4-10.2) mg/dL Total Bilirubin 1.2 H (0.0-1.0) mg/dL AST 22 (5-31) U/L ALT 17 (0-31) U/L Alkaline Phosphatase 57 (39-117) U/L Troponin I High Sens < 2.7 (<3.5-17.0) ng/L B-Natriuretic Peptide 44 (<100) pg/mL Total Protein 6.8 (6.5-8.0) g/dL Albumin 4.3 (3.5-5.0) g/dL Influenza Type A (PCR) NEGATIVE (Negative) Influenza Type B (PCR) NEGATIVE (Negative) RSV RNA Qual (PCR) NEGATIVE (Negative) SARS-CoV-2 RNA (RT-PCR) NEGATIVE (Negative) Independent Interpretation I performed an independent interpretation of an: EKG and Plain X-Ray (chest) Interpretation: My interpretation is in agreement with the radiologist's impression of this imaging study. L EXAMINATION: XR CHEST CLINICAL INFORMATION: dyspnea cough COMPARISON: 10/14/2023. TECHNIQUE: Frontal view of the chest was obtained. FINDINGS: The cardiac, hilar, and mediastinal contours are normal. Lungs are mildly hyperaerated bilaterally, however clear. No pneumothorax or effusion. No focal osseous or soft tissue abnormality. There is scoliosis of the thoracolumbar spine. XR/XR chest 1V IMPRESSION: No active pulmonary disease. Electronically signed by: Addy Rice MD 04/10/2025 10:16 AM EDT Dictated By: Addy Rice MD Signed By: Electronically signed by Addy Rice MD 04/10/25 [id number] I independently interpreted this EKG and am in agreement with the below findings: Vent. Rate: 84 BPM Atrial Rate: 84 BPM P-R Int: 150 ms QRS Dur: 72 ms QT Int: 344 ms P-R-T Axes: 61 53 64 degrees QTcB Int: 406 ms Normal sinus rhythm Septal infarct, age undetermined When compared with ECG of 14-Oct-2023 09:26, Septal infarct is now Present DD/ [id number] Radiology Impression Discussion of test interpretation with radiology: I have reviewed the radiologist's reading. Critical Care Time Critical Care Time Critical Care Time: Yes Total Critical Care Time: 36 Attestation: I spent 36 minutes of Critical Care Time with this patient. This does not include time spent on separately reported billable procedures. Discharge Plan Discharge Clinical Impression: Asthma with exacerbation Patient Disposition: Admitted As Inpatient Prescriptions: No Action levothyroxine 75 mcg tablet 75 mcg PO DAILY@0600 losartan 25 mg tablet 25 mg PO BEDTIME montelukast 10 mg tablet 10 mg PO BEDTIME budesonide-formoterol [Symbicort] 160-4.5 mcg/actuation HFA aerosol inhaler 2 puff INHALATION BID aspirin 81 mg Tablet,Delayed Release (Dr/Ec) 81 mg PO DAILY calcium carbonate 500 mg calcium (1,250 mg) Tablet 500 mg PO DAILY oseltamivir [Tamiflu] 75 mg Capsule 75 mg PO Q12H Qty: 3 0RF cefuroxime axetil 500 mg tablet 500 mg PO BID 7 Days Qty: 14 0RF prednisone 20 mg tablet 40 mg PO DAILY Qty: 4 0RF albuterol sulfate 90 mcg/actuation HFA aerosol inhaler 2 inh inhalation Q6-8H PRN (Reason: shortness of breath) Qty: 18 0RF Robitussin Cough-Chest Bill DM 5-100 mg/5 mL liquid 10 ml PO Q4-8H PRN (Reason: cough) Qty: 118 0RF Print Language: Mosotho
[2025-04-10] MEDS: Magnesium Sulfate/H2O 2 GM/50 ML PIGGYBACK IV (09:55)
[2025-04-10 10:00] LABS: MANUAL DIFF FLAG NO
[2025-04-10 10:01] LABS: Basophils Percent Auto 0.1 % (0-2); Hematocrit 36.8 % (37.0-47.0); Hemoglobin 12.7 g/dl (12.0-16.0); Imm Gran Abs Auto 0.07 X10*3/uL (0.00-0.03); Imm Gran Pct Auto 0.7 % (0.0-0.4); Lymphocytes Absolute Auto 0.7 X10*3/uL (1.2-4.9); Lymphocytes Percent Auto 6.8 % (20-40); Mean Corpuscular HGB Conc 34.5 g/dl (31.0-35.0); Mean Corpuscular Volume 89.8 fL (80.0-98.0); Mean Platelet Volume 9.5 fL (9.4-12.3); Monocytes Absolute Auto 0.5 X10*3/uL (0.1-1.2); Monocytes Percent Auto 5.3 % (2-11); Neutrophils Absolute Auto 8.7 x10*3/uL (2.0-8.3); Neutrophils Percent Auto 87.1 % (45-73); Platelet Count 208 X10*3/uL (160-400); Red Cell Distribution Width 12.6 % (11.0-16.0)
[2025-04-10 10:14] LABS: Alanine Aminotransferase 17 U/L (0-31); Albumin Level 4.3 g/dL (3.5-5.0); Alkaline Phosphatase 57 U/L (39-117); Anion Gap 13 (12-20); Aspartate Amino Transferase 22 U/L (5-31); Bilirubin Total 1.2 mg/dL (0.0-1.0); Blood Urea Nitrogen 13 mg/dL (9-16); Calcium 9.5 mg/dL (8.4-10.2); Carbon Dioxide 24 mmol/L (22-29); Chloride 109 mmol/L (96-108); Creatinine Clr Calc Pharmacy 71.4; Estimated Glomerular Filt Rate > 60; Glucose Random 113 mg/dL (60-115); Potassium 3.8 mmol/L (3.3-5.1); Sodium 142 mmol/L (135-145); Total Protein 6.8 g/dL (6.5-8.0)
--- NOTE | 2025-04-10 10:14 | PC.NURSE ---
Pt admitted to ED rm 1, A/O x 3, calm and cooperative. Denies pain at this time. Hx asthma and reports increased shortness of breath and NPC. O2 sats above 90% on room air. #20 IV placed R AC, labs collected and obtained. CXR pending.
[2025-04-10 10:15] LABS: VBG Base Excess 1.9 mmol/L; VBG HCO3 24 mmol/L (22-26); VBG pCO2 30 mmHg; VBG pO2 161 mmHg
[2025-04-10 10:15] LABS: Venous Blood Gas Refer to POC result
--- NOTE | 2025-04-10 10:19 | PC.NURSE ---
Mag sulfate rate increased to infuse over 1 hr per PA elenita.
[2025-04-10 10:29] LABS: B Type Natriuretic Peptide 44 pg/mL (<100)
[2025-04-10 10:36] LABS: Troponin-I High Sensitivity < 2.7 ng/L (<3.5-17.0)
[2025-04-10 10:43] LABS: Influenza A PCR NEGATIVE (Negative); Influenza B PCR NEGATIVE (Negative); Resp Syncy Virus RNA Qual PCR NEGATIVE (Negative); SARS COV2 PCR INHOUSE NEGATIVE (Negative)
[2025-04-10] MEDS: Albuterol Sulfate 5 MG, Albuterol/Iprat 2.5/0.5MG 3 ML 3 ML INHALE (10:57)
--- NOTE | 2025-04-10 11:25 | P.HPHOSP_ITS ---
History of Present Illness Date of Service: 04/10/25 Chief Complaint: Cough, acute asthma exacerbation 59 year old female with a past medical history of asthma, hypertension, and hypothyroidism presents to the ED with shortness of breath, wheezing and coughing for 1 week. Patient reports that she has had increased shortness of breath since Wednesday, patient reports that she has been using her nebulizers 4 times a day, went to her primary care and was prescribed a prednisone taper, she took 60 mg Wednesday and Wednesday, continued to have increased shortness of breath, cough, wheezing, difficulty sleeping so she presents today for further care and treatment. Per patient she checks her oxygen saturations and peak flows at home, noticed that her peak flows were decreasing in her oxygen saturation was lower than usual. Patient had a hospitalization for an acute exacerbation September 2023 when she tested positive for influenza A. She has not been hospitalized since then. She has been in her normal state of health. On exam she denies any dizziness, lightheadedness, abdominal pain, nausea vomiting, diarrhea. She denies any fever or chills, night sweats, chest pain or pressure. Reports feeling short of breath, reports that she has some productive cough of greenish sputum. Denies any pain with inspiration. In the ED her blood work was without leukocytosis, EKG unremarkable, chest Xray was negative. Troponins were flat, BNP negative. Blood gases within normal limits. Viral panel negative. In the ED she received nebulizer treatments, Solu-Medrol, a dose of magnesium sulfate. She will be admitted for acute asthma exacerbation. Review of Systems 2 Review of Systems: Per HPI Yes all other systems are reviewed and are negative [facility] Social History Household Members: Spouse Housing: House Do you presently have visiting nurse or other home services: No Patient Tobacco Use Status: Never used Tobacco Smoked in Last 30 Days: No Use of substances other than those prescribed or required for medical reasons: No Advance Directives: No Advance Directives Information Provided: Yes service: No Meds Allergies Allergy/AdvReac Type Severity Reaction Status Date / Time sulfamethoxazole Allergy Rash Verified 04/10/25 09:34 [From Bactrim] trimethoprim [From Bactrim] Allergy Rash Verified 04/10/25 09:34 Active Medications: Current Medications Magnesium Sulfate (Magnesium Sulfate/H2o) 2 gm in 50 mls @ 25 mls/hr IV ONCE ONE Stop: 04/10/25 11:49 Last Infusion: 04/10/25 10:55 Dose: Infused Home Medications ?Medication ?Instructions ?Recorded ?Confirmed ?Last Taken ?Type aspirin 81 mg tablet,delayed 81 mg PO DAILY 10/14/23 10/14/23 10/13/23 09:00 History release budesonide-formoterol HFA 160 2 puff inhalation BID 10/14/23 10/14/23 10/13/23 09:00 History mcg-4.5 mcg/actuation aerosol inhaler (Symbicort) calcium carbonate 500 mg PO DAILY 10/14/23 10/14/23 10/13/23 09:00 History levothyroxine 75 mcg tablet 75 mcg PO DAILY@0600 10/14/23 10/14/23 10/14/23 History losartan 25 mg tablet 25 mg PO BEDTIME 10/14/23 10/14/23 10/13/23 09:00 History montelukast 10 mg tablet 10 mg PO BEDTIME 10/14/23 10/14/23 10/12/23 History loratadine 10 mg chewable tablet 10 mg PO DAILY 04/10/25 04/10/25 04/10/25 History (Claritin) prednisone 20 mg tablet See Taper PO DAILY 04/10/25 Unknown History Physical Exam 2 Vital Signs and Narrative: Vital Signs: Last Vital Signs Temp 98.4 F 04/10/25 09:33 Pulse 81 04/10/25 10:51 Resp 24 H 04/10/25 10:51 BP 147/74 H 04/10/25 09:33 Pulse Ox 94 04/10/25 09:33 O2 Del Method Room Air 04/10/25 09:33 BMI result Body Mass Index 18.8 CONST: Alert and oriented, in NAD. Well nourished, color within normal limits, no cyanosis HEENT: Normocephalic, atraumatic, MMM, Eyes clear, Neck supple RESP: Scattered inspiratory and expiratory wheezing, able to speak in full sentences. + cough HEART:,RRR, S1, S2. No murmur, no edema. + tachycardia GI:Abdomen Soft NT, ND. + BS times four :Deferred SKIN: Warm dry and intact, no visible lesions or rashes NEURO:CN II-XII Intact bilaterally, Sensation intact. Speech clear PSYCH: Normal affect Results Labs 04/10/25 09:50 04/10/25 09:50 Labs: Laboratory Results - last 24 hr 04/10/25 04/10/25 04/10/25 09:50 10:03 10:07 MCV 89.8 MCH 31.0 MCHC 34.5 RDW 12.6 Plt Count 208 MPV 9.5 Immature Gran % (Auto) 0.7 H Neut % (Auto) 87.1 H Lymph % (Auto) 6.8 L [place] % (Auto) 5.3 Eos % (Auto) 0.0 Baso % (Auto) 0.1 Lymph # (Auto) 0.7 L [place] # (Auto) 0.5 Eos # (Auto) 0.0 Baso # (Auto) 0.0 Abs Immat Gran (auto) 0.07 H Absolute Neuts (auto) 8.7 H Absolute Nucleated RBC 0.000 Nucleated RBC % (auto) 0.0 VBG pH 7.50 H VBG pCO2 30 VBG pO2 161 VBG HCO3 24 VBG O2 Saturation 100.0 VBG Base Excess 1.9 Anion Gap 13 Estim Creat Clear Calc 71.4 Estimated GFR > 60 Random Glucose 113 Calcium 9.5 Total Bilirubin 1.2 H AST 22 ALT 17 Alkaline Phosphatase 57 Troponin I High Sens < 2.7 B-Natriuretic Peptide 44 Total Protein 6.8 Albumin 4.3 Influenza Type A (PCR) NEGATIVE Influenza Type B (PCR) NEGATIVE RSV RNA Qual (PCR) NEGATIVE SARS-CoV-2 RNA (RT-PCR) NEGATIVE Imaging Radiologist's Impressions: Impressions Chest X-Ray 04/10/25 09:01 IMPRESSION: No active pulmonary disease. Electronically signed by: Addy Rice MD 04/10/2025 10:16 AM EDT Assessment and Plan (1) Asthma with exacerbation: Qualifiers: Asthma persistence: persistent Asthma severity: moderate Qualified Code(s): J45.41 - Moderate persistent asthma with (acute) exacerbation Status: Acute Plan 59-year-old female with a past medical history of asthma, hypertension and hypothyroidism. Presented to the ED with worsening shortness of breath, she will be admitted to [facility] for further management of acute asthma exacerbation which failed outpatient treatment with oral steroids. Medication reconciliation not completed at this time. Acute asthma exacerbation +Dyspnea, cough, wheezing on exam Failed outpatient steroid treatment Pt with continued wheezing on exam despite receiving breathing treatments as well as Solu-Medrol. Magnesium. Will treat with Xopenex, Solu-Medrol, guaifenesin Chest x-ray negative for pneumonia, viral panel negative, no leukocytosis, rest of blood work unremarkable Xopenex Q 4 hours as needed Continue Solu-Medrol b.i.d. Continue home montelukast, home inhalers. Hypothyroidism Continue levothyroxine Hypertension Continue losartan CODE STATUS: FULL CODE VTE Prophylaxis: Lovenox. Quality Stroke Does the patient have a stroke diagnosis?: No VTE Prior VTE?: No VTE Risk Level:: Medical - moderate - high VTE Device Contraindication: Treatment Not Indicated VTE Drug Contraindication: N/A - Med Ordered
--- OUTSIDE RECORDS SUMMARY | 2025-04-10 11:35 | XMS_ITS | Data Portability ---
Author Organization [facility], Main Office Address [address] [facility] [address] [place] [address] Care Team Providers Care Bilingual Student Tutor Name Role Phone SARAH SHEPPARD Crop Puller [phone] GÓMEZ SPRINGER Primary Care Provider PILLO CARROLL Referring Provider Assessment Encounter Date Assessment Date Assessment LastModified by Organization Details LastModified Time 07/26/2024 07/26/2024 Discussed with patient the signs/symptom s warranted for a return to office visit and/or an ER visit. Patient understood and agreed with the plan. Not available 07/26/2024 13:20:14 10/11/2024 10/11/2024 Discussed with patient the signs/symptom s warranted for a return to office visit and/or an ER visit. Patient understood and agreed with the plan. Not available 10/11/2024 10:21:42 Plan of Treatment Reminders Order Date Submit Date Provider Last Modified By Organization Details Last Modified Time Details Appointments PE EST 2024 03:00P Andreas SPRINGER MD Not available Not available Not available Lab lipid panel, serum 2023 024 [facility], [address], [place], [address], 04/19/2024 06:09:52 BMP, serum or plasma 2023 024 [facility], [address], [place], [address], 04/19/2024 06:09:52 CBC w/ auto diff 2023 024 [facility], [address], [address], [place], [address], 04/19/2024 06:09:51 TSH + free T4, serum 2023 024 [facility], [address], [address], [place], [address], 04/19/2024 06:09:50 lipid panel, serum 2022 023 [facility], [address], [address], [place], [address], 12/23/2022 11:15:50 TSH, serum or plasma 2022 023 [facility], [address], [address], [place], [address], 12/23/2022 11:20:07 BMP, serum or plasma 2022 023 [facility], [address], [address], [place], [address], 12/23/2022 11:15:48 CBC w/ auto diff 2022 023 [facility], [address], [address], [place], [address], 12/23/2022 10:58:[address] referra l - Once a month has laryngi tis that then produce s clear phlegm and then asthma is tirgger ed. Has allergi st appt in [place]. ? needs direct imaging to rule out mass ov vocal cord lesions . 2021 022 [email or web address] [facility], [address], [address], [place], [address], 09/30/2022 14:05:43 pulmono logist referra l - cough monthly with laryngi tis, not respond ing to asthma treatme nt, better wtih prednis one but comes back. 2021 022 [facility], [address] [place], [address], 03/19/2023 09:55:16 Procedures colonos copy screeni ng (PROC) 2023 024 [id number] [facility], [address] [facility], [place], [address], 03/16/2024 07:41:30 Surgeries None recorde d. Imaging exercis e stress test - pt had two episode s of left sided chest pain while at rest 2022 023 [id number] [facility] [place], [address] [place], [address], 12/29/2022 13:33:26 Medication Orders prednis one 20 mg tablet 2023 024 [facility]130, [address] [place], [place], [id number], 10/11/2024 10:27:34 Zithrom ax Z-Miguel 250 mg tablet 2023 024 [facility] #57782, [address] [place], [place], [id number], 10/11/2024 10:27:37 Augment in 875 mg-125 mg tablet 2023 024 [facility] #79298, [address] [place], [place], [id number], 10/11/2024 10:27:35 prednis one 10 mg tablet 2023 024 [facility] #94289, [address] [place], [place], [id number], 07/26/2024 13:17:55 losarta n 25 mg tablet 2023 024 [facility] #30290, [address] [place], [place], [id number], 03/15/2024 15:21:24 levothy roxine 75 mcg tablet 2023 024 [facility] #80145, [address] [place], [place], [id number], 03/15/2024 15:21:23 albuter ol sulfate HFA 90 mcg/act uation aerosol inhaler 2023 024 [facility] #23005, [address] [place] [address], [id number], 03/15/2024 15:21:28 montelu kast 10 mg tablet 2023 024 [facility] #24739, [facility] [place], [place], [id number], 03/15/2024 15:21:24 Advair HFA 115 mcg-21 mcg/act uation aerosol inhaler 2023 024 [facility] #62658, [address] [place], [place], [id number], 07/26/2024 13:08:52 losarta n 25 mg tablet 2022 023 [facility] #79872, [facility] [place], [place], [id number], 12/08/2022 15:27:24 prednis one 10 mg tablet 2021 022 [facility] #49616, [address] [place], [place], [id number], 12/08/2022 15:02:33 Patient TargetsNo targets recorded. Patient Instructions Encounter Date Encounter Id Patient Instructions Last Modified By Organization Details Last Modified Time 10/11/2024 [id number] pneumonia: care instructions Not available 10/11/2024 10:27:28 Reason for Referral Smasher Referral fo r Chronic hoarseness Once a month has laryngitis that then produces clear phlegm and then asthma is tirggered. Has line patrolman appt in November. ? needs direct imaging to rule out mass ov vocal cord lesions. Referring Physician: Deonna Peña, [facility], Encounter Date: 08/26/2022 Account Relationship Manager Referral for M oderate persistent asthma cough monthly with laryngitis, not responding to asthma treatment, better wtih prednisone but comes back. Referring Physician: Deonna Peña, [facility], Encounter Date: 08/26/2022 Results Created Date Observation Date Name Description Value Unit Range Abnormal Flag Note LastModifiedBy Organization Detail LastModifiedTime 12/24/1912/23/2022 COMPL ETE CBC WITH DIFF WBC 3.3 K/mm3 (4.0-1 1.0) low Not Available [facility] (Centralized Electronic Ordering - All Locations) Patient Can Go To The Location Of Their Choice, 12/23/2022 10:58:57 12/24/1912/23/2022 COMPL ETE CBC WITH DIFF RBC 4.25 M/mm3 (4.20- 5.40) Not Available [facility] (Centralized Electronic Ordering - All Locations) Patient Can Go To The Location Of Their Choice, 12/23/2022 10:58:57 12/24/1912/23/2022 COMPL ETE CBC WITH DIFF HGB 13.0 gm/dL (11.7- 15.5) Not Available [facility] (Centralized Electronic Ordering - All Locations) Patient Can Go To The Location Of Their Choice, 12/23/2022 10:58:57 12/24/1912/23/2022 COMPL ETE CBC WITH DIFF HCT 40.8 % (35.7- 45.8) Not Available [facility] (Centralized Electronic Ordering - All Locations) Patient Can Go To The Location Of Their Choice, 12/23/2022 10:58:57 12/24/1912/23/2022 COMPL ETE CBC WITH DIFF MCV 96.0 fL (80.0- 100.0) Not Available [facility] (Centralized Electronic Ordering - All Locations) Patient Can Go To The Location Of Their Choice, 12/23/2022 10:58:57 12/24/1912/23/2022 COMPL ETE CBC WITH DIFF MCH 30.6 pg (27.0- 34.0) Not Available [facility] (Centralized Electronic Ordering - All Locations) Patient Can Go To The Location Of Their Choice, 12/23/2022 10:58:57 12/24/1912/23/2022 COMPL ETE CBC WITH DIFF MCHC 31.9 g/dL (33.0- 37.0) low Not Available [facility] (Centralized Electronic Ordering - All Locations) Patient Can Go To The Location Of Their Choice, 12/23/2022 10:58:57 12/24/1912/23/2022 COMPL ETE CBC WITH DIFF plt 192 K/mm3 (150-4 60) Not Available [facility] (Centralized Electronic Ordering - All Locations) Patient Can Go To The Location Of Their Choice, 12/23/2022 10:58:57 12/24/1912/23/2022 COMPL ETE CBC WITH DIFF RDW-SD 45.1 fL (<47.0 ) Not Available [facility] (Centralized Electronic Ordering - All Locations) Patient Can Go To The Location Of Their Choice, 12/23/2022 10:58:57 12/24/1912/23/2022 COMPL ETE CBC WITH DIFF MPV 10.2 fL (9.4-1 2.4) Not Available [facility] (Centralized Electronic Ordering - All Locations) Patient Can Go To The Location Of Their Choice, 12/23/2022 10:58:57 12/24/1912/23/2022 COMPL ETE CBC WITH DIFF automated NRBC 0.0 #/100 _WBC' s Not Available [facility] (Centralized Electronic Ordering - All Locations) Patient Can Go To The Location Of Their Choice, 12/23/2022 10:58:57 12/24/1912/23/2022 COMPL ETE CBC WITH DIFF abs. NRBC 0.0 K/mm3 Not Available [facility] (Centralized Electronic Ordering - All Locations) Patient Can Go To The Location Of Their Choice, 12/23/2022 10:58:57 12/24/1912/23/2022 COMPL ETE CBC WITH DIFF neut # 1.2 K/mm3 (1.3-7 .0) low Not Available [facility] (Centralized Electronic Ordering - All Locations) Patient Can Go To The Location Of Their Choice, 12/23/2022 10:58:57 12/24/1912/23/2022 COMPL ETE CBC WITH DIFF lymph # 1.6 K/mm3 (0.8-3 .1) Not Available [facility] (Centralized Electronic Ordering - All Locations) Patient Can Go To The Location Of Their Choice, 12/23/2022 10:58:57 12/24/1912/23/2022 COMPL ETE CBC WITH DIFF mono# 0.3 K/mm3 (0.4-0 .9) low Not Available [facility] (Centralized Electronic Ordering - All Locations) Patient Can Go To The Location Of Their Choice, 12/23/2022 10:58:57 12/24/1912/23/2022 COMPL ETE CBC WITH DIFF eo # 0.1 K/mm3 (0.0-0 .4) Not Available [facility] (Centralized Electronic Ordering - All Locations) Patient Can Go To The Location Of Their Choice, 12/23/2022 10:58:57 12/24/1912/23/2022 COMPL ETE CBC WITH DIFF baso # 0.1 K/mm3 (0.0-0 .1) Not Available [facility] (Centralized Electronic Ordering - All Locations) Patient Can Go To The Location Of Their Choice, 12/23/2022 10:58:57 12/24/1912/23/2022 COMPL ETE CBC WITH DIFF abs. imm gran 0.0 K/mm3 Not Available [facility] ([facility] Ordering - All Locations) Patient Can Go To The Location Of Their Choice, 12/23/2022 10:58:57 12/24/1912/23/2022 COMPL ETE CBC WITH DIFF neut 36.4 % (44-76 ) low Not Available [facility] (Centralized Electronic Ordering - All Locations) Patient Can Go To The Location Of Their Choice, 12/23/2022 10:58:57 12/24/1912/23/2022 COMPL ETE CBC WITH DIFF lymph 49.5 % (15-43 ) high Not Available [facility] (Centralized Electronic Ordering - All Locations) Patient Can Go To The Location Of Their Choice, 12/23/2022 10:58:57 12/24/1912/23/2022 COMPL ETE CBC WITH DIFF monocyte 8.0 % (4.5-1 0.5) Not Available [facility] (Centralized Electronic Ordering - All Locations) Patient Can Go To The Location Of Their Choice, 12/23/2022 10:58:57 12/24/1912/23/2022 COMPL ETE CBC WITH DIFF eo 4.3 % (0-6) Not Available [facility] (Centralized Electronic Ordering - All Locations) Patient Can Go To The Location Of Their Choice, 12/23/2022 10:58:57 12/24/1912/23/2022 COMPL ETE CBC WITH DIFF baso 1.5 % (0-2) Not Available [facility] (Centralized Electronic Ordering - All Locations) Patient Can Go To The Location Of Their Choice, 12/23/2022 10:58:57 12/24/1912/23/2022 COMPL ETE CBC WITH DIFF imm gran 0.3 % Not Available [facility] (Centralized Electronic Ordering - All Locations) Patient Can Go To The Location Of Their Choice, 12/23/2022 10:58:57 12/24/1912/23/2022 BASIC METAB OLIC PANEL glucose 80 mg/dL (70-99 ) Not Available [facility] (Centralized Electronic Ordering - All Locations) Patient Can Go To The Location Of Their Choice, 12/23/2022 11:15:48 12/24/1912/23/2022 BASIC METAB OLIC PANEL BUN 12 mg/dL (6-20) Not Available [facility] (Centralized Electronic Ordering - All Locations) Patient Can Go To The Location Of Their Choice, 12/23/2022 11:15:48 12/24/1912/23/2022 BASIC METAB OLIC PANEL creatinine 0.8 mg/dL (0.5-1 .0) Not Available [facility] (Centralized Electronic Ordering - All Locations) Patient Can Go To The Location Of Their Choice, 12/23/2022 11:15:48 12/24/1912/23/2022 BASIC METAB OLIC PANEL sodium 141 mmol/ L (133-1 45) Not Available [facility] (Centralized Electronic Ordering - All Locations) Patient Can Go To The Location Of Their Choice, 12/23/2022 11:15:48 12/24/1912/23/2022 BASIC METAB OLIC PANEL potassium 4.4 mmol/ L (3.6-5 .2) Not Available [facility] (Centralized Electronic Ordering - All Locations) Patient Can Go To The Location Of Their Choice, 12/23/2022 11:15:48 12/24/1912/23/2022 BASIC METAB OLIC PANEL chloride 103 mmol/ L (98-10 7) Not Available [facility] (Centralized Electronic Ordering - All Locations) Patient Can Go To The Location Of Their Choice, 12/23/2022 11:15:48 12/24/1912/23/2022 BASIC METAB OLIC PANEL bicarbonate 29 mmol/ L (22-29 ) Not Available [facility] (Centralized Electronic Ordering - All Locations) Patient Can Go To The Location Of Their Choice, 12/23/2022 11:15:48 12/24/1912/23/2022 BASIC METAB OLIC PANEL anion gap 9 (4-17) Not Available [facility] (Centralized Electronic Ordering - All Locations) Patient Can Go To The Location Of Their Choice, 12/23/2022 11:15:48 12/24/1912/23/2022 BASIC METAB OLIC PANEL calcium 9.5 mg/dL (8.6-1 0.5) Not Available [facility] (Centralized Electronic Ordering - All Locations) Patient Can Go To The Location Of Their Choice, 12/23/2022 11:15:48 12/24/1912/23/2022 BASIC METAB OLIC PANEL estimated GFR creatinine 87 mL/mi n/1.7 3_M2 Creat inine based estim ated glome rular yolatr ation (eGFR ) in adult s is calcu lated using the Natio nal Kidne y Found ation recom malou d 2020 CKD-E PI equat ion. Estim ates GFR from serum creat inine , age and sex. Not Available [facility] (Centralized Electronic Ordering - All Locations) Patient Can Go To The Location Of Their Choice, 12/23/2022 11:15:48 12/24/1912/23/2022 LIPID PANEL cholesterol, total 234 mg/dL (<200) high Not Available [facility] ([facility] Ordering - All Locations) Patient Can Go To The Location Of Their Choice, 12/23/2022 11:15:50 12/24/1912/23/2022 LIPID PANEL triglyceride 64 mg/dL (<150) Not Available [facility] ([facility] Ordering - All Locations) Patient Can Go To The Location Of Their Choice, 12/23/2022 11:15:50 12/24/1912/23/2022 LIPID PANEL HDL chol 101 mg/dL (>39) Not Available [facility] (Centralized Electronic Ordering - All Locations) Patient Can Go To The Location Of Their Choice, 12/23/2022 11:15:50 12/24/1912/23/2022 LIPID PANEL LDL cholesterol, calculated 120 mg/dL (0-130 ) Not Available [facility] (Centralized Electronic Ordering - All Locations) Patient Can Go To The Location Of Their Choice, 12/23/2022 11:15:50 12/24/1912/23/2022 LIPID PANEL non HDL cholesterol (calc) 133 mg/dL (<160) Not Available [facility] ([facility] Ordering - All Locations) Patient Can Go To The Location Of Their Choice, 12/23/2022 11:15:50 12/24/1912/23/2022 TSH WITH REFLE X TO FT4 TSH 3.61 uIU/m L (0.4-4 .2) Not Available [facility] ([facility]ized Electronic Ordering - All Locations) Patient Can Go To The Location Of Their Choice, 12/23/2022 11:20:06 04/18/2004/19/2024 TSH+F REE T4 TSH 3.430 uIU/m L 0.450- 4.500 Not Available [facility] ([facility]) [address] [place], [address], 04/19/2024 06:09:50 04/18/20 24 04/19/2024 TSH+F REE T4 T4,free(dire ct) 1.14 NG/dL 0.82-1 .77 Not Available [facility] ([facility]) [address] [place], [address], 04/19/2024 06:09:50 04/18/20 24 04/18/2024 CBC WITH DIFFE RENTI AL/PL ATELE T WBC 3.2 x10e3 /uL 3.4-10 .8 below low normal Not Available [facility] ([facility]) [address] [place], [address], 04/19/2024 06:09:51 04/18/20 24 04/18/2024 CBC WITH DIFFE RENTI AL/PL ATELE T RBC 4.27 x10e6 /uL 3.77-5 .28 Not Available [facility] ([facility]) [address] [place], [address], 04/19/2024 06:09:51 04/18/20 24 04/18/2024 CBC WITH DIFFE RENTI AL/PL ATELE T hemoglobin 13.2 g/dL 11.1-1 5.9 Not Available [facility] ([facility]) [address] [place], [address], 04/19/2024 06:09:51 04/18/20 24 04/18/2024 CBC WITH DIFFE RENTI AL/PL ATELE T hematocrit 40.4 % 34.0-4 6.6 Not Available [facility] ([facility]) [address] [place], [address], 04/19/2024 06:09:51 04/18/20 24 04/18/2024 CBC WITH DIFFE RENTI AL/PL ATELE T MCV 95 fL 79-97 Not Available [facility] ([facility]) [address] [place], [address], 04/19/2024 06:09:51 04/18/20 24 04/18/2024 CBC WITH DIFFE RENTI AL/PL ATELE T MCH 30.9 pg 26.6-3 3.0 Not Available [facility] ([facility]) [address] [place], [address], 04/19/2024 06:09:51 04/18/20 24 04/18/2024 CBC WITH DIFFE RENTI AL/PL ATELE T MCHC 32.7 g/dL 31.5-3 5.7 Not Available [facility] ([facility]) [address] [place], [address], 04/19/2024 06:09:51 04/18/20 24 04/18/2024 CBC WITH DIFFE RENTI AL/PL ATELE T RDW 13.3 % 11.7-1 5.4 Not Available [facility] ([facility]) [address] [place], [address], 04/19/2024 06:09:51 04/18/20 24 04/18/2024 CBC WITH DIFFE RENTI AL/PL ATELE T platelets 220 x10e3 /uL 150-45 0 Not Available [facility] ([facility]) [address] [place], [address], 04/19/2024 06:09:51 04/18/20 24 04/18/2024 CBC WITH DIFFE RENTI AL/PL ATELE T neutrophils 41 % not estab. Not Available [facility] ([facility]) [address] [place], [address], 04/19/2024 06:09:51 04/18/20 24 04/18/2024 CBC WITH DIFFE RENTI AL/PL ATELE T lymphs 45 % not estab. Not Available [facility] ([facility]) [address] [facility], [place], [address], 04/19/2024 06:09:51 04/18/20 24 04/18/2024 CBC WITH DIFFE RENTI AL/PL ATELE T monocytes 9 % not estab. Not Available [facility] ([facility]) [address] [facility], [place], [address], 04/19/2024 06:09:51 04/18/20 24 04/18/2024 CBC WITH DIFFE RENTI AL/PL ATELE T eos 4 % not estab. Not Available [facility] ([facility]) [address] [facility], [place], [address], 04/19/2024 06:09:51 04/18/20 24 04/18/2024 CBC WITH DIFFE RENTI AL/PL ATELE T basos 1 % not estab. Not Available [facility] ([facility]) [address] [facility], [place], [address], 04/19/2024 06:09:51 04/18/20 24 04/18/2024 CBC WITH DIFFE RENTI AL/PL ATELE T immature cells PHARMACEUTICAL SALES REPRESENTATIVE Not Available [facility] ([facility]) [address] [facility], [place], [address], 04/19/2024 06:09:51 04/18/20 24 04/18/2024 CBC WITH DIFFE RENTI AL/PL ATELE T neutrophils (absolute) 1.3 x10e3 /uL 1.4-7. 0 below low normal Not Available [facility] ([facility]) [address] [place], [address], 04/19/2024 06:09:51 04/18/20 24 04/18/2024 CBC WITH DIFFE RENTI AL/PL ATELE T lymphs (absolute) 1.4 x10e3 /uL 0.7-3. 1 Not Available [facility] ([facility]) [address] [facility], [place], [address], 04/19/2024 06:09:51 04/18/20 24 04/18/2024 CBC WITH DIFFE RENTI AL/PL ATELE T monocytes(ab solute) 0.3 x10e3 /uL 0.1-0. 9 Not Available [facility] ([facility]) [address] [facility], [place], [address], 04/19/2024 06:09:51 04/18/20 24 04/18/2024 CBC WITH DIFFE RENTI AL/PL ATELE T eos (absolute) 0.1 x10e3 /uL 0.0-0. 4 Not Available [facility] ([facility]) [address] [facility], [place], [address], 04/19/2024 06:09:51 04/18/20 24 04/18/2024 CBC WITH DIFFE RENTI AL/PL ATELE T baso (absolute) 0.0 x10e3 /uL 0.0-0. 2 Not Available [facility] ([facility]) [address] [facility], [place], [address], 04/19/2024 06:09:51 04/18/20 24 04/18/2024 CBC WITH DIFFE RENTI AL/PL ATELE T immature granulocytes 0 % not estab. Not Available [facility] ([facility]) [address] [facility], [place], [address], 04/19/2024 06:09:51 04/18/20 24 04/18/2024 CBC WITH DIFFE RENTI AL/PL ATELE T immature grans (abs) 0.0 x10e3 /uL 0.0-0. 1 Not Available [facility] ([facility]) [address] [facility], [place], [address], 04/19/2024 06:09:51 04/18/20 24 04/18/2024 CBC WITH DIFFE RENTI AL/PL ATELE T NRBC PHARMACEUTICAL SALES REPRESENTATIVE Not Available [facility] ([facility]) [address] [facility], [place], [address], 04/19/2024 06:09:51 04/18/2004/18/2024 CBC WITH DIFFE LAURA AL/PL ATELE T hematology comments: PHARMACEUTICAL SALES REPRESENTATIVE Not Available [facility] ([facility]) [address] [facility], [place], [address], 04/19/2024 06:09:51 04/18/20 24 04/18/2024 BASIC METAB OLIC PANEL (8) glucose 100 mg/dL 70-99 above high normal Not Available [facility] ([facility]) [address] [facility] [place], [address], 04/19/2024 06:09:52 04/18/20 24 04/18/2024 BASIC METAB OLIC PANEL (8) BUN 18 mg/dL 8-27 Not Available [facility] ([facility]) [address] [facility] [place], [address], 04/19/2024 06:09:52 04/18/2004/18/2024 BASIC METAB OLIC PANEL (8) creatinine 0.72 mg/dL 0.57-1 .00 Not Available [facility] ([facility]) [address] [facility] [place], [address], 04/19/2024 06:09:52 04/18/2004/18/2024 BASIC METAB OLIC PANEL (8) eGFR 96 mL/mi n/1.7 3 >59 Not Available [facility] ([facility]) [address] [facility] [place], [address], 04/19/2024 06:09:52 04/18/2004/18/2024 BASIC METAB OLIC PANEL (8) BUN/creatini ne ratio 25 -28 Not Available [facility] ([facility]) [address] [facility] [place], [address], 04/19/2024 06:09:52 04/18/20 24 04/18/2024 BASIC METAB OLIC PANEL (8) sodium 141 mmol/ L 134-14 4 Not Available [facility] ([facility]) [address] [place], [address], 04/19/2024 06:09:52 04/18/20 24 04/18/2024 BASIC METAB OLIC PANEL (8) potassium 4.8 mmol/ L 3.5-5. 2 Not Available [facility] ([facility]) [address] [place], [address], 04/19/2024 06:09:52 04/18/20 24 04/18/2024 BASIC METAB OLIC PANEL (8) chloride 105 mmol/ L 96-106 Not Available [facility] ([facility]) [address] [place], [address], 04/19/2024 06:09:52 04/18/20 24 04/18/2024 BASIC METAB OLIC PANEL (8) carbon dioxide, total 23 mmol/ L 20-29 Not Available [facility] ([facility]) [address] [place], [address], 04/19/2024 06:09:52 04/18/20 24 04/18/2024 BASIC METAB OLIC PANEL (8) calcium 9.5 mg/dL 8.7-10 .3 Not Available [facility] ([facility]) [address] [place], [address], 04/19/2024 06:09:52 04/18/20 24 04/18/2024 LIPID PANEL cholesterol, total 231 mg/dL 100-19 9 above high normal Not Available [facility] ([facility]) [address] [place], [address], 04/19/2024 06:09:52 04/18/20 24 04/18/2024 LIPID PANEL triglyceride s 59 mg/dL 0-149 Not Available [facility] ([facility]) [address] [facility], [place], [address], 04/19/2024 06:09:52 04/18/20 24 04/18/2024 LIPID PANEL HDL cholesterol 92 mg/dL >39 Not Available [facility] ([facility]) [address] [facility] [place], [address], 04/19/2024 06:09:52 04/18/20 24 04/18/2024 LIPID PANEL VLDL cholesterol jt 10 mg/dL 5-40 Not Available [facility] ([facility]) [address] [facility] [place], [address], 04/19/2024 06:09:52 04/18/20 24 04/18/2024 LIPID PANEL LDL chol calc ([facility]) 129 mg/dL 0-99 above high normal Not Available [facility] ([facility]) [address] [facility], [place], [address], 04/19/2024 06:09:52 04/18/20 24 04/18/2024 LIPID PANEL LDL calc comment: PHARMACEUTICAL SALES REPRESENTATIVE Not Available [facility] ([facility]) [address] [facility], [place], [address], 04/19/2024 06:09:52 07/27/20 22 07/27/2022 XR, chest , 2 view Chest 2 Views Fronta l and Lat Reason : modera te persis tent asthma , uncomp licate d, cough COMPAR LIANA: Multip le prior chest x-rays , the most recent of which is dated 020 720. FINDIN GS: LINES AND TUBES: None. LUNGS AND PLEURA : Large lung volume s. Otherw ise, lungs are clear. No pleura l effusi on. No pneumo thorax . HEART, MEDIAS TINUM AND JAVI: Heart is normal in size. Normal medias tinal and hilar contou r. BONES AND SOFT TISSUE S: No acute abnorm ality. IMPRES MIGEL: No radiog raphic eviden ce of an acute cardio pulmon milton proces s. I have person ally review ed the images and I agree with this report . WSN: [id number] Orderi ng Physic maddie: Esme carey, Zuhair ie Dictat ed By: Zoran sandhu MD, Richard palomino Dictat ed Date/T napoleon: 2:48 pm Review ed By: Abdoulaye cuenca MD, Son Signed By: Abdoulaye cuenca MD, Son Signed Date/T napoleon: 2:53 pm Transc ribed By: CSB Transc ribed Date/T napoleon: 2:36 pm Patien t Class: Outpat ient [facility] (Outpt Imaging) [address], [place], [address], 07/28/2022 07:39:03 03/04/20 23 03/03/2023 US, echo ardio gram No observ ation record ed. [address] [facility] [address] [place], [address], 03/04/2023 15:16:57 10/14/20 23 10/14/2023 CT, angio gram, chest , w/o contr ast No observ ation record ed. [address] (Medical Records) [address] [place], [address], 10/14/2023 11:37:03 10/14/20 23 10/14/2023 XR, chest , 1 view No observ ation record ed. [address] (Medical Records) [address] [place], [address], 10/14/2023 12:46:54 04/17/20 24 02/26/2023 dianne MEANS digit al, bilat eral No observ ation record ed. [address] [facility] [address] [place] [address] [place], [address], 04/17/2024 15:53:50 07/08/20 24 06/09/2024 MAMMO , scree jevon, digit al, bilat eral No observ ation record ed. [email or web address] [facility] [place], [address], 07/09/2024 11:58:52 04/10/20 25 04/10/2025 imagi ng/di agnos tic resul t No observ ation record ed. [facility] (Medical Records) [address] [facility], [place], [address], 04/10/2025 10:21:00 Result Notes None recorded. Problems Name Problem SNOMED Code Status Onset Date Resolution Date Notes Provider Name and Address Organization Details Recorded Time Acute bronchit is 40420523 Completed 200805/31/2014 IMPRESSI ON: 3 DAYS OF PRODUCTI VE COUGH, SEEMS HAS SUPERIMP OSED BRONCHIT IS ON ASTHMA EXACERBA TION; RECORDED 12/07/19 09 7:57AM BY ED HINOJOSA, IMERATI ON/ADDEN DUM Not Available [facility] 4 12:45:12 Adult health examinat ion Completed 201205/31/2014 IMPRESSI ON: PAP AND MAMMO UTD, PT HAROON LEE COLONOSC OPY APPT, IS ACTIVE; RECORDED 08/09/20 13 1:01PM BY MARIJA EUBANKS MA, ANNOTATI ON/ADDEN DUM Not Available [facility] 4 12:45:12 Patient status finding [id number] Completed 201205/31/2014 RECORDED 01/25/20 13 10:14AM BY MARIJA EUBANKS MA, ANNOTATI ON/ADDEN DUM Not Available [facility] 4 12:45:12 Cough [id number] Completed 201205/31/2014 IMPRESSI ON: LUNGS CLEAR TODAY, C/W VIRAL INFX, RECOMMEN D SUPPORTI VE TX; RECORDED 08/09/20 13 1:01PM BY MARIJA EUBANKS MA, ANNOTATI ON/ADDEN DUM Not Available [facility] 4 12:45:13 Influenz a vaccine needed [id number] 06 Completed 201205/31/2014 RECORDED 07/06/20 13 3:42PM BY MARIJA GAUTAM, OFFICE VISIT Not Available [facility] 4 12:45:13 Pain in limb 18257665 Completed 201205/31/2014 IMPRESSI ON: PAIN RIGHT POINTER DIP S/P INJURY 6 WEEKS AGO; RECORDED 01/25/20 13 10:15AM BY MARIJA EUBANKS MA, ANNOTATI ON/ADDEN DUM Not Available [facility] 4 12:45:13 Influenz a with respirat ory manifest ation other than pneumoni a Completed 201205/31/2014 RECORDED 01/25/20 13 10:15AM BY MARIJA EUBANKS MA, ANNOTATI ON/ADDEN DUM Not Available [facility] 4 12:45:13 Renewal of prescrip tion Completed 201205/31/2014 RECORDED 08/09/20 13 1:01PM BY MARIJA EUBANKS MA, ANNOTATI ON/ADDEN DUM Not Available [facility] 4 12:45:13 Neck pain [id number] Completed 201205/31/2014 RECORDED 01/25/20 13 10:15AM BY MARIJA EUBANKS MA, ANNOTATI ON/ADDEN DUM Not Available [facility] 4 12:45:13 Administ ration of bacteria l and viral vaccine Completed 200705/31/2014 RECORDED 07/20/20 08 9:14AM BY MARIJA EUBANKS MA, OFFICE VISIT Not Available [facility] 4 12:45:13 Joint pain in ankle and foot Completed 201205/31/2014 RECORDED 01/25/20 13 10:15AM BY MARIJA EUBANKS MA, ANNOTATI ON/ADDEN DUM Not Available [facility] 4 12:45:13 Skin sensatio n disturba nce [id number] Completed 201205/31/2014 IMPRESSI ON: R UE [facility] WITH INCREASE D USE AND AGGRAVAT ED BY REACHING POSITION S. NORMAL STRENGTH AND ROM. WILL GET VERTEBRA L PLAIN FILMS TO EVAL FOR POSSIBLE STENOSIS OR DJD. NO MED CHANGES IN THE INTERIM. WILL PHONE PT WITH RESULTS WHEN AVAIL. MAY NEED PHYSIATR Y EVAL OR PT.; RECORDED 01/25/20 13 10:15AM BY MARIJA EUBANKS MA, IMERATI ON/ADDEN DUM Not Available [facility] 4 12:45:13 Endocrin e/metabo lic screenin g Completed 200705/31/2014 RECORDED 07/20/20 08 9:11AM BY MARIJA EUBANKS MA, IMERATI ON/ADDEN DUM Not Available [facility] 4 12:45:14 Tachycar deena [id number] Completed 201205/31/2014 RECORDED 01/25/20 13 10:15AM BY MARIJA EUBANKS MA, IMERATI ON/ADDEN DUM Not Available [facility] 4 12:45:14 Candidia sis of mouth 40542403 Completed 201205/31/2014 RECORDED 01/25/20 13 10:15AM BY MARIJA EUBANKS MA, ANNOTATI ON/ADDEN DUM Not Available [facility] 4 12:45:14 Acute bronchit is 87195216 Completed 200806/01/2014 IMPRESSI ON: 3 DAYS OF PRODUCTI VE COUGH, SEEMS HAS SUPERIMP OSED BRONCHIT IS ON ASTHMA EXACERBA TION; RECORDED 12/07/19 09 7:57AM BY ED HINOJOSA, IMERATI ON/ADDEN DUM Not Available [facility] 4 03:45:34 Adult health examinat ion Completed 201206/01/2014 IMPRESSI ON: PAP AND MAMMO UTD, PT HAROON HUERTA OPY APPT, IS ACTIVE; RECORDED 08/09/20 13 1:01PM BY MARIJA EUBANKS MA, ANNOTATI ON/ADDEN DUM Not Available [facility] 4 03:45:34 Patient status finding [id number] Completed 201206/01/2014 RECORDED 01/25/20 13 10:14AM BY MARIJA EUBANKS MA, ANNOTATI ON/ADDEN DUM Not Available [facility] 4 03:45:34 Cough [id number] Completed 201206/01/2014 IMPRESSI ON: LUNGS CLEAR TODAY, C/W VIRAL INFX, RECOMMEN D SUPPORTI VE TX; RECORDED 08/09/20 13 1:01PM BY MARIJA EUBANKS MA, ANNOTATI ON/ADDEN DUM Not Available [facility] 4 03:45:34 Influenz a vaccine needed [id number] 06 Completed 201206/01/2014 RECORDED 07/06/20 13 3:42PM BY MARIJA GAUTAM, OFFICE VISIT Not Available [facility] 4 03:45:34 Pain in limb 78994711 Completed 201206/01/2014 IMPRESSI ON: PAIN RIGHT POINTER DIP S/P INJURY 6 WEEKS AGO; RECORDED 01/25/20 13 10:15AM BY MARIJA EUBANKS MA, ANNOTATI ON/ADDEN DUM Not Available [facility] 4 03:45:34 Influenz a with respirat ory manifest ation other than pneumoni a Completed 201206/01/2014 RECORDED 01/25/20 13 10:15AM BY MARIJA EUBANKS MA, ANNOTATI ON/ADDEN DUM Not Available [facility] 4 03:45:34 Renewal of prescrip tion Completed 201206/01/2014 RECORDED 08/09/20 13 1:01PM BY MARIJA EUBANKS MA, ANNOTATI ON/ADDEN DUM Not Available [facility] 4 03:45:34 Neck pain 61341840 Completed 201206/01/2014 RECORDED 01/25/20 13 10:15AM BY MARIJA EUBANKS MA, ANNOTATI ON/ADDEN DUM Not Available [facility] 4 03:45:34 Administ ration of bacteria l and viral vaccine Completed 200706/01/2014 RECORDED 07/20/20 08 9:14AM BY MARIJA EUBANKS MA, OFFICE VISIT Not Available [facility] 4 03:45:34 Joint pain in ankle and foot Completed 201206/01/2014 RECORDED 01/25/20 13 10:15AM BY MARIJA EUBANKS MA, ANNOTCRISTINA ON/ADDEN DUM Not Available [facility] 4 03:45:34 Skin sensatio n disturba nce [id number] Completed 201206/01/2014 IMPRESSI ON: R UE [facility] WITH INCREASE D USE AND AGGRAVAT ED BY REACHING POSITION S. NORMAL STRENGTH AND ROM. WILL GET VERTEBRA L PLAIN FILMS TO EVAL FOR POSSIBLE STENOSIS OR DJD. NO MED CHANGES IN THE INTERIM. WILL PHONE PT WITH RESULTS WHEN AVAIL. MAY NEED PHYSIATR Y EVAL OR PT.; RECORDED 01/25/20 13 10:15AM BY MARIJA EUBANKS MA, QUIRINO ON/ADDEN DUM Not Available [facility] 4 03:45:34 Endocrin e/metabo lic screenin g Completed 200706/01/2014 RECORDED 07/20/20 08 9:11AM BY MARIJA EUBANKS MA, ANNOTCRISTINA ON/ADDEN DUM Not Available [facility] 4 03:45:34 Tachycar deena [id number] Completed 201206/01/2014 RECORDED 01/25/20 13 10:15AM BY MARIJA EUBANKS MA, QUIRINO ON/ADDEN DUM Not Available [facility] 4 03:45:34 Candidia sis of mouth 09194169 Completed 201206/01/2014 RECORDED 01/25/20 13 10:15AM BY MARIJA EUBANKS MA, QUIRINO ON/ADDEN DUM Not Available [facility] 4 03:45:34 Laryngit is 05946665 Completed 09/24/2018 Desiree razo [place] - [facility] 8 09:59:46 Mammogra phy finding [id number] Completed 201205/06/2015 RECORDED 08/09/20 13 1:05PM BY MARIJA EUBANKS MA, OFFICE VISIT Jeri Ramirez [facility], [facility] 5 08:36:15 Pneumoni a 784557993 Completed 09/24/2018 Desiree Glading-Di ponce [facility], [facility] 8 09:59:34 Osteopor osis 40318236 Active 2020 Desiree Glading-Di ponce null, [facility] 1 17:01:41 Moderate persiste nt asthma 525306722 Active 2020 Desiree Glading-Di pocne [facility], [facility] 1 10:29:41 Acute bronchit is 95664195 Completed 200805/08/2014 IMPRESSI ON: 3 DAYS OF PRODUCTI VE COUGH, SEEMS HAS SUPERIMP OSED BRONCHIT IS ON ASTHMA EXACERBA TION; RECORDED 12/07/19 09 7:57AM BY ED HINOJOSA, ANNOTATI ON/ADDEN DUM Not Available [facility] 4 14:27:21 Allergic rhinitis 34022911 Active 2012 Samira razo, [facility] 8 08:36:37 Adult health examinat ion Completed 201205/08/2014 IMPRESSI ON: PAP AND MAMMO UTD, PT HAROON MAEK COLONOSC OPY APPT, IS ACTIVE; RECORDED 08/09/20 13 1:01PM BY MARIJA EUBANKS MA, ANNOTATI ON/ADDEN DUM Not Available [facility] 4 14:27:22 Patient status finding [id number] Completed 201205/08/2014 RECORDED 01/25/20 13 10:14AM BY MARIJA EUBANKS MA, ANNOTATI ON/ADDEN DUM Not Available [facility] 4 14:27:22 Asthma [id number] Completed 201201/22/2021 Desiree Sylvester ponce danni, [facility] 1 15:54:59 Acute asthma 276904251 Completed 201209/24/2018 Desiree Higinio ponce danni, [facility] 8 09:59:39 Screenin g for malignan t neoplasm of breast Completed 201205/06/2015 RECORDED 08/09/20 13 1:05PM BY MARIJA EUBANKS MA, OFFICE VISIT Jeri razo [facility] 5 08:36:15 Screenin g for malignan t neoplasm of cervix Completed 201205/06/2015 RECORDED 08/09/20 13 1:05PM BY MARIJA EUBANKS MA, OFFICE VISIT Jeri razo [facility] 5 08:36:15 Screenin g for malignan t neoplasm of colon Completed 201305/06/2015 IMPRESSI ON: PT IS DUE SHOULD MAKE AN APPT; RECORDED 12/30/19 14 10:47AM BY TIFFANIE MCCARTYIC AL SUMMARY Jeri Ramireznancy razo [facility] 5 08:36:15 Cough [id number] Completed 201205/08/2014 IMPRESSI ON: LUNGS CLEAR TODAY, C/W VIRAL INFX, RECOMMEN D SUPPORTI VE TX; RECORDED 08/09/20 13 1:01PM BY MARIJA EUBANKS MA, ANNOTATI ON/ADDEN DUM Not Available [facility] 4 14:27:22 Cervical spondylo sis without myelopat hy 089022654 Active 2012 Samira razo [facility] 8 08:36:37 Gastroes ophageal reflux disease 011800221 Completed 201212/08/2022 GÓMEZ SPRINGER MD [address] [address], [place], [address] , [facility] 3 15:13:36 IgE-medi ated allergic asthma 800711162 Completed 201209/24/2018 Desiree razo [place] [facility] 8 09:59:43 Influenz a vaccine needed [id number] 06 Completed 201205/08/2014 RECORDED 07/06/20 13 3:42PM BY MARIJA GAUTAM, OFFICE VISIT Not Available [facility] 4 14:27:22 Pain in limb 38829596 Completed 201205/08/2014 IMPRESSI ON: PAIN RIGHT POINTER DIP S/P INJURY 6 WEEKS AGO; RECORDED 01/25/20 13 10:15AM BY MARIJA EUBANKS MA, ANNOTATI ON/ADDEN DUM Not Available [facility] 4 14:27:22 Hypothyr oidism 74337295 Active 2012 Samira razo [place] [facility] 8 08:36:37 Influenz a with respirat ory manifest ation other than pneumoni a Completed 201205/08/2014 RECORDED 01/25/20 13 10:15AM BY MARIJA EUBANKS MA, ANNOTATI ON/ADDEN DUM Not Available [facility] 4 14:27:23 Renewal of prescrip tion Completed 201205/08/2014 RECORDED 08/09/20 13 1:01PM BY MARIJA EUBANKS MA, ANNOTATI ON/ADDEN DUM Not Available [facility] 4 14:27:23 Neck pain 98200446 Completed 201205/08/2014 RECORDED 01/25/20 13 10:15AM BY MARIJA EUBANKS MA, ANNOTATI ON/ADDEN DUM Not Available [facility] 4 14:27:23 Administ ration of bacteria l and viral vaccine Completed 200705/08/2014 RECORDED 07/20/20 08 9:14AM BY MARIJA EUBANKS MA, OFFICE VISIT Not Available [facility] 4 14:27:23 Patient status finding [id number] Completed 201205/06/2015 RECORDED 08/09/20 13 1:05PM BY MARIJA EUBANKS MA, OFFICE VISIT Jeri razo [facility] 5 08:36:15 Joint pain in ankle and foot Completed 201205/08/2014 RECORDED 01/25/20 13 10:15AM BY MARIJA EUBANKS MA, ANNOTATI ON/ADDEN DUM Not Available [facility] 4 14:27:23 Skin sensatio n disturba nce [id number] Completed 201205/08/2014 IMPRESSI ON: R UE [facility] WITH INCREASE D USE AND AGGRAVAT ED BY REACHING POSITION S. NORMAL STRENGTH AND ROM. WILL GET VERTEBRA L PLAIN FILMS TO EVAL FOR POSSIBLE STENOSIS OR DJD. NO MED CHANGES IN THE INTERIM. WILL PHONE PT WITH RESULTS WHEN AVAIL. MAY NEED PHYSIATR Y EVAL OR PT.; RECORDED 01/25/20 13 10:15AM BY MARIJA EUBANKS MA, ANNOTATI ON/ADDEN DUM Not Available [facility] 4 14:27:23 Adult health examinat ion Completed 201305/06/2015 RECORDED 12/01/19 14 11:38AM BY DANYEL TAYLOR, HISTORIC AL SUMMARY Jeri razo [facility] 5 08:36:15 Endocrin e/metabo lic screenin g Completed 200705/08/2014 RECORDED 07/20/20 08 9:11AM BY MARIJA EUBANKS MA, ANNOTATI ON/ADDEN DUM Not Available [facility] 4 14:27:23 Tachycar deena [id number] Completed 201205/08/2014 RECORDED 01/25/20 13 10:15AM BY MARIJA EUBANKS MA, ANNOTATI ON/ADDEN DUM Not Available [facility] 4 14:27:23 Candidia sis of mouth 36100038 Completed 201205/08/2014 RECORDED 01/25/20 13 10:15AM BY MARIJA EUBANKS MA, ANNOTATI ON/ADDEN DUM Not Available [facility] 4 14:27:24 Problem Notes None recorded. Procedures Surgical History Date Name Laterality Status Provider Name and Address Organization Details Recorded Time 3 Most Recent Bone Density completed Marija Gauatm MA [facility] 03/15/2024 15:07:02 2 Most Recent Mammogram completed Lisa Hall [facility] 05/27/2022 09:30:06 2 Mammogram screening completed Lisa Hall [facility] 05/27/2022 09:30:00 0 Date of Last Pap Smear completed Marija Gautam MA [facility] 01/22/2021 15:43:53 7 Dxa bone density jovanna vrt fx completed Charlene Ascencio [facility] 05/04/2017 10:27:03 4 Date of Last Colonoscopy completed Marija isabel MA [facility] 09/30/2017 14:08:57 4 Colonoscopy completed Marija isabel MA [facility] 09/30/2017 14:09:08 6 Breast Surgery completed Jeri Aranda MA [facility] 02/12/2022 14:55:13 Imaging Results None recorded. Procedure Notes None recorded. Medical Equipment None Reported. Allergies Allergen ID Allergen Name Allergen Category Reaction Reaction Severity Criticality Documentation Date Start Date Code Code System Note Provider Name and Address Organization Details Recorded Time 2322 Biaxin medicatio n hives Not available Not available 05/08/20142012 9 RxNorm ED Goodrich [facility] 5 14:17:51 68879 lisinopri l medicatio n cough Not available low 12/08/2022 57964 RxNorm GÓMEZ SPRINGER MD [address] [facility] [address], [place], [address], [facility] 3 15:13:16 Medications Name Sig Start Date Stop Date Status Note LastModified by Organization Details LastModified Time symbicort 160-4.5 mcg/act aero active Not Available Not Available Not Available amoxicill in 500 mg caps 07/15 completed Not Available Not Available Not Available prednison e 10 mg tabs active Not Available Not Available Not Available levofloxa tom 500 mg tabs active Not Available Not Available Not Available levothyro xine sodium 75 mcg tabs 01/26 completed Not Available Not Available Not Available estrace 0.1 mg/gm crea active Not Available Not Available Not Available monteluka st sodium 10 mg tabs 07/15 completed Not Available Not Available Not Available albuterol sulfate 1.25 mg/3ml nebu active Not Available Not Available Not Available terconazo le 0.4 % vaginal cream 07/15 completed Not Available Not Available Not Available prednison e 10 mg tablet 40mg x 3days, 30mg x 3 days, 20mg x 3 days, 10mg x 3 days then stop active Not Available Not Available No t Available Estring 2 mg (7.5 mcg/24 hour) vaginal ring 07/15 completed Not Available Not Available Not Available azithromy tom 250 mg tablet TAKE 2 TABLETS (500 MG) BY ORAL ROUTE ONCE DAILY FOR 1 DAY THEN 1 TABLET (250 MG) BY ORAL ROUTE ONCE DAILY FOR 4 DAYS active Not Available Not Available No t Available levalbute rol 0.63 mg/3 mL solution for nebulizat ion FOUR TIMES DAILY, NEEDED 01/05 completed RECORDED 01/06/20 11 3:48PM BY MARIJA EUBANKS MA, OFFICE VISIT; Not Available Not Available Not Available ibuprofen 800 mg tablet Take 1 tablet every 6 hours by oral route as needed for 7 days. 12/30 completed Not Available Not Available Not Available fluconazo le 150 mg tablet TAKE 1 TABLET BY MOUTH EVERY DAY FOR 1 DAY FOR FUNGAL OR YEAST INFECTIO N. MAY REPEAT IN 5 TO 7 DAYS 02/12 completed Not Available Not Available Not Available valacyclo vir 1 gram tablet Take 1 tablet 3 times a day by oral route as directed for 7 days. 09/30 completed Not Available Not Available Not Available albuterol sulfate 1.25 mg/3 mL solution for nebulizat ion USE 3 ML VIA NEBULIZE R THREE TIMES DAILY NEEDED active Not Available Not Available No t Available prednison e 20 mg tablet Take 2 tablets every day by oral route as directed for 7 days. active Not Available Not Available No t Available moxifloxa tom 400 mg tablet DAILY 12/08 completed RECORDED 12/10/19 09 9:00AM BY DESIREE Paz MD, MEDICATI ON AUTO-KRISTAL CTIVATIO N; Not Available Not Available Not Available peg-elect rolyte solution 420 gram oral solution active Not Available Not Available Not Available levothyro xine 75 mcg tablet TAKE 1 TABLET BY MOUTH EVERY DAY DIRECTED active Not Available Not Available No t Available pantopraz ole 40 mg tablet,de layed release Take 1 tablet every day by oral route for 30 days. 02/12 completed Not Available Not Available Not Available oseltamiv ir 75 mg capsule TAKE ONE CAPSULE BY MOUTH EVERY 12 HOURS 03/15 completed Not Available Not Available Not Available tobramyci n 0.3 % eye drops 10/13 completed Not Available Not Available Not Available clotrimaz ole-betam ethasone 1 %-0.05 % topical cream 07/15 completed Not Available Not Available Not Available prednison e 50 mg tablet TAKE 1 TABLET BY MOUTH ONCE A DAY FOR 7 DAYS. DISPENSE 7 TABLETS. ZERO REFILL. 07/08 completed Not Available Not Available Not Available polymyxin B sulfate 10,000 unit-trim ethoprim 1 mg/mL eye drops INSTILL 1 DROP IN LEFT EYE TWICE DAILY FOR 7 DAYS 03/15 completed Not Available Not Available Not Available losartan 25 mg tablet TAKE 1 TABLET BY MOUTH EVERY DAY active Not Available Not Available No t Available Advair Diskus 500 mcg-50 mcg/dose powder for inhalatio n Q12HRS 01/05 completed RECORDED 01/06/20 11 3:48PM BY MARIJA EUBANKS MA, OFFICE VISIT;X 2WEKS Not Available Not Available Not Available monteluka st 10 mg tablet TAKE 1 TABLET BY MOUTH EVERY DAY DIRECTED active Not Available Not Available No t Available lisinopri l 5 mg tablet Take 1 tablet every day by oral route for 90 days. 12/08 completed Not Available Not Available Not Available Levaquin 500 mg tablet Take 1 tablet every 24 hours by oral route for 10 days. 2014 active Not Available Not Available Not Avai lable cefuroxim e axetil 500 mg tablet TAKE 1 TABLET BY MOUTH TWICE DAILY FOR 7 DAYS 03/15 completed Not Available Not Available Not Available methylpre dnisolone 4 mg tablets in a dose pack TAKE DIRECTED , 6TABS DAY ONE, 5 TABS DAY2, 4 TABS DAY 3, 3 TABS DAY 4, 2 TABS DAY 5, 1 TAB DAY 6 10/13 completed Not Available Not Available Not Available albuterol sulfate HFA 90 mcg/actua tion aerosol inhaler INHALE 2 PUFFS BY MOUTH FOUR TIMES DAILY NEEDED FOR WHEEZING active Not Available Not Available No t Available albuterol sulfate concentra te 5 mg/mL(0.5 %) solution for nebulizat ion FOUR TIMES DAILY, NEEDED 01/05 completed RECORDED 01/06/20 11 3:49PM BY MARIJA EUBANKS MA, OFFICE VISIT; Not Available Not Available Not Available doxycycli ne hyclate 100 mg tablet Take 1 tablet twice a day by oral route as directed for 10 days. 01/22 completed Not Available Not Available Not Available amoxicill in 875 mg-potass ium clavulana te 125 mg tablet Take 1 tablet every 12 hours by oral route as directed for 7 days. active Not Available Not Available No t Available Estrace 0.01% (0.1 mg/gram) vaginal cream 07/15 completed Not Available Not Available Not Available albuterol (refill) 90 mcg/actua tion aerosol inhaler Inhale 2 puffs every 4-6 hours by inhalati on route as needed. 03/15 completed Not Available Not Available Not Available metaxalon e 800 mg tablet active Not Available Not Available Not Available codeine-g uaifenesi n oral syrup Q 4 HOURS PRN 08/27 completed RECORDED 10/01/20 09 3:21PM BY ERASMO BROWN MD, MEDICATI ON AUTO-KRISTAL CTIVATIO N; Not Available Not Available Not Available tiotropiu m bromide 18 mcg capsule with inhalatio n device DAILY 07/06 completed RECORDED 07/06/20 13 3:34PM BY MARIJA GAUTAM, OFFICE VISIT; Not Available Not Available Not Available aspirin 81 mg Daily active Not Available Not Available No t Available nystatin FOUR TIMES DAILY 02/15 completed RECORDED 04/28/20 11 2:32PM BY GALEN HEREDIA MD, MEDICATI ON AUTO-KRISTAL CTIVATIO N; Not Available Not Available Not Available Guiatuss AT BEDTIME 01/31 completed RECORDED 07/04/20 13 12:50PM BY JERI RAMIREZ PA-C, MEDICATI ON AUTO-KRISTAL CTIVATIO N; Not Available Not Available Not Available fexofenad ine DAILY 01/05 completed RECORDED 01/06/20 11 3:49PM BY MARIJA EUBANKS MA, OFFICE VISIT; Not Available Not Available Not Available fluticaso ne propionat e 115 mcg-salme terol 21 mcg/actua tion HFA inhaler INHALE 2 PUFFS BY MOUTH TWICE DAILY NEEDED 07/26 completed Not Available Not Available Not Available Pulmicort Flexhaler 180 mcg/actua tion breath activated 08/09 completed Not Available Not Available Not Available budesonid e-formote rol HFA 160 mcg-4.5 mcg/actua tion aerosol inhaler INHALE 2 PUFFS BY MOUTH TWICE DAILY 2024 active Not Available Not Available Not Avai lable levocetir izine 5 mg tablet DAILY 01/05 completed RECORDED 01/06/20 11 3:48PM BY MARIJA EUBANKS MA, OFFICE VISIT; Not Available Not Available Not Available estradiol 10 mcg vaginal tablet TWICE WEEKLY active RECORDED 08/09/20 13 1:04PM BY MARIJA EUBANKS MA, OFFICE VISIT;DR Veda LOYA Not Available Not Available Not Available loratadin e 10 mg capsule Take 1 capsule every day by oral route. active Not Available Not Available No t Available Osphena 60 mg tablet TAKE 1 TABLET BY MOUTH EVERY DAY WITH FOOD 03/15 completed Not Available Not Available Not Available Virtussin AC 10 mg-100 mg/5 mL oral liquid Take 10 mL every 6 hours by oral route as needed for 8 days. 01/22 completed Not Available Not Available Not Available Afluria [id number] (PF) 45 mcg (15 mcg x 3)/0.5 mL IM syringe 07/15 completed Not Available Not Available Not Available Spiriva Respimat 1.25 mcg/actua tion solution for inhalatio n INHALE 2 PUFFS BY MOUTH EVERY DAY active Not Available Not Available No t Available Wixela Inhub 250 mcg-50 mcg/dose powder for inhalatio n Inhale 1 puff twice a day by inhalati on route for 90 days. 10/11 completed Not Available Not Available Not Available Fluarix Quad (PF) 60 mcg (15 mcg x 4)/0.5 mL IM syringe 10/13 completed Not Available Not Available Not Available Flucelvax Quad (PF) 60 mcg (15 mcg x 4)/0.5 mL IM syringe VACCINAT ION ADMINIST ERED BY PHARMACI ST 01/22 completed Not Available Not Available Not Available Vitals Date Recorded Body height Body mass index (BMI) Body weight Heart rate Oxygen saturation Oxygen saturation in Arterial blood by Pulse oximetry Body temperature Systolic blood pressure Diastolic blood pressure Provider Name and Address Organization Details Last Updated DateTime 3 161.29 cm 19.4 kg/m2 12323.7 5 g 91 /min 96 % 96 % 98 [degF] 125 mm[Hg] 80 mm[Hg] Galen Hoyos MA [facility] 3 15:05:11 Date Recorded Body height Body mass index (BMI) Body weight Oxygen saturation Oxygen saturation in Arterial blood by Pulse oximetry Heart rate Body temperature Systolic blood pressure Diastolic blood pressure Provider Name and Address Organization Details Last Updated DateTime 4 161.29 cm 19.9 kg/m2 81462.9 3 g 96 % 96 % 81 /min 98 [degF] 120 mm[Hg] 68 mm[Hg] Marija Gautam MA [facility] 4 15:01:47 Date Recorded Body height Body mass index (BMI) Body weight Heart rate Oxygen saturation Oxygen saturation in Arterial blood by Pulse oximetry Body temperature Systolic blood pressure Diastolic blood pressure Provider Name and Address Organization Details Last Updated DateTime 4 161.29 cm 19.4 kg/m2 14410.8 5 g 87 /min 97 % 97 % 98 [degF] 125 mm[Hg] 79 mm[Hg] Jeri Aranda MA [facility] 4 13:08:27 Date Recorded Body height Body mass index (BMI) Body weight Oxygen saturation Oxygen saturation in Arterial blood by Pulse oximetry Heart rate Body temperature Systolic blood pressure Diastolic blood pressure Provider Name and Address Organization Details Last Updated DateTime 2 161.29 cm 19.1 kg/m2 69035.3 7 g 98 % 98 % 77 /min 98.06 [degF] 124 mm[Hg] 74 mm[Hg] Marija Gautam [facility] 2 15:05:44 Date Recorded Body height Body mass index (BMI) Body weight Heart rate Oxygen saturation Oxygen saturation in Arterial blood by Pulse oximetry Body temperature Systolic blood pressure Diastolic blood pressure Provider Name and Address Organization Details Last Updated DateTime 4 161.29 cm 19 kg/m2 13012.5 7 g 92 /min 99 % 99 % 97.8 [degF] 116 mm[Hg] 68 mm[Hg] Mykel manriquez [facility] 4 10:16:28 Social History Question Answer Notes LastModified by Organizat ion Details LastModified Time Tobacco Smoking Status Never Smoker Arsen razo [facility] 07/09/2014 16:12:34 Is Blood Transfusion Acceptable In An Emergency? Yes [email or web address] Information not available 07/10/2015 What Is Your Level Of Caffeine Consumption? Moderate 2 Cups Of Coffee Daily [email or web address] Information not available 07/09/2014 How Much Tobacco Do You Chew? None Information not available 09/30/2017 What Type Of Diet Are You Following? REGULAR [email or web address] Information not available 07/09/2014 Which Illicit Or Recreational Drugs Have You Used? None Information not available 09/30/2017 Live Alone Or With Others? With Others (Madhu) And 3 Children Information not available 08/26/2022 Do You Take Precautions To Prevent Distracted Driving? Yes Information not available 07/10/2015 How Often Do You Need To Have Someone Help You When You Read Instructions, Pamphlets, Or Other Written Material From Your Doctor Or Pharmacy? Never Information not available 01/22/2021 Have You Served In The ? No Information not available 09/30/2017 Have You Or Anyone In Your Household Had Any Of The Following Symptoms In The Last 14 Days: Sore Throat, Cough, Chills, Body Aches For Unknown Reasons, Shortness Of Breath For Unknown Reasons, Loss Of Smell, Loss Of Taste, Fever At Or Greater Than 100 Degrees Fahrenheit? No [email or web address] Information not available 01/22/2021 Are You Or Anyone In Your Household A Health Care Provider Or Emergency Responder? No [email or web address] Information not available 01/22/2021 To The Best Of Your Knowledge Have You Been In Close Proximity To Any Individual Who Tested Positive For COVID-19? No [email or web address] Information not available 01/22/2021 Have You Recently Traveled To A COVID-19 High Risk Area Or Gathering In The Last 10 Days? No [email or web address] Information not available 01/22/2021 What Was The Date Of Your Most Recent Tobacco Screening? 03/15/2024 [email or web address] Information not available 03/15/2024 How Many Children Do You Have? 3 Information not available 07/09/2014 Do You Use Protection During Sex? No Information not available 09/30/2017 What Is Your Relationship Status? Information not available 08/26/2022 Do You Use Your Seat Belt Or Car Seat Routinely? Yes [email or web address] Information not available 02/12/2022 Seat Belts Used Routinely Yes Information not available 08/26/2022 Are You Sexually Active? Yes Information not available 09/30/2017 Smoke Alarm In Home Yes Information not available 08/26/2022 Do You Have Smoke And Carbon Monoxide Detectors In Your Home? Yes [email or web address] Information not available 02/12/2022 At What Age Did You Start Smoking Tobacco? 0 Information not available 09/30/2017 Are You Passively Exposed To Smoke? No Information not available 09/30/2017 How Much Tobacco Do You Smoke? No Information not available 09/30/2017 Do You Use Sunscreen Routinely? Yes [email or web address] Information not available 07/10/2015 How Many Years Have You Smoked Tobacco? 0 Information not available 09/30/2017 Sex: Unknown Functional Status Question Answer Note LastModified by Organizat ion Details LastModified Time Do you use any illicit or recreational drugs? No [email or web address] Information not available 12/08/2022 What is your level of alcohol consumption? Occasional Information not available 07/09/2014 Do you or have you ever used smokeless tobacco? Never used smokeless tobacco [email or web address] Information not available 01/22/2021 Are you currently employed? Yes Information not available 07/09/2014 Are you able to walk? [email or web address] Information not available 08/26/2022 Are you able to care for yourself? 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 Moderate 20 mins Daily Information not available 07/09/2014 Mental Status None recorded. Family History Relationship Description Onset Age of this Age Resolved Age Notes LastModified by Organization Details LastModified Time Mother Osteoporosis [email or web address] Not availab le 05/06/2015 13:23:30 Father Hypertensive disorder [email or web address] Not available 2014 13:23:30 Maternal Grandmother Alzheimer's disease [email or web address] Not available 2014 13:23:30 Paternal Grandmother Myocardial infarction 78 Not available 08/26 14:52:39 Paternal Grandfather Myocardial infarction 74 Not available 08/26 14:52:39 Medical History Condition Response Hypothyroidism Y Asthma Y Osteoporosis Y Gynecological History Statement/Question Response Date of Last Pap Smear 07/25/2020 Date of Last Colonoscopy 12/29/2013 Most Recent Mammogram 05/13/2022 Most Recent Bone Density 10/25/2022 Obstetrics History GPAL:G 0 P 0 0 0 0 Immunizations Vaccine Type Date Status Note Provider Nam yohan and Address Organization Details Recorded Time Influenza, split virus, trivalent, PF [facility] 11:45:37 Influenza, split virus, quadrivalent, preservative 8 [facility] 09/[facility]/2018 09:53:34 Influenza, split virus, quadrivalent, preservative 1 [facility] 09/15/2021 09:58:46 COVID-19, mRNA, LNP-S, PF, 100 mcg/0.5mL dose or 50 mcg/0.25mL dose 1 [facility] 12/30/2021 11:45:37 Influenza, split virus, quadrivalent, PF 8 [facility] 12/30/2021 11:45:37 COVID-19, mRNA, LNP-S, PF, 100 mcg/0.5mL dose or 50 mcg/0.25mL dose 1 [facility] 12/30/2021 11:45:37 Influenza, MDCK, quadrivalent, PF 0 [facility] 12/30/2021 11:45:37 pneumococcal polysaccharide PPV23 5 [facility] 12/30/2021 11:45:37 Influenza, split virus, trivalent, PF 7 completed ED [place], [facility] 12/30/2021 11:45:37 Influenza, split virus, quadrivalent, PF 1 completed ED [place], [facility] 12/30/2021 11:45:37 COVID-19, mRNA, LNP-S, PF, 100 mcg/0.5mL dose or 50 mcg/0.25mL dose 1 completed ED [place], [facility] 12/30/2021 11:45:37 Pneumococcal conjugate PCV 13 5 completed ED [place], [facility] 12/30/2021 11:45:37 Tdap 8 completed ED [place], [facility] 07/08/2022 14:29:48 Influenza, split virus, quadrivalent, PF 6 completed ED [place], [facility] 07/08/2022 14:29:48 Influenza, split virus, trivalent, PF 4 completed ED [place], [facility] 07/08/2022 14:29:48 Influenza, split virus, quadrivalent, PF 3 completed ED [place], [facility] 03/15/2024 14:55:02 Influenza, MDCK, trivalent, PF 4 completed ED K[place], [facility] 07/26/2024 13:00:30 Pneumococcal conjugate PCV21, polysaccharide APC658 conjugate, PF 5 completed GÓMEZ SPRINGER MD [address], [address], [facility] [place] 11/14/2024 07:52:57 Influenza, split virus, trivalent, preservative 8 completed Samira razo, [facility] 02/28/2018 08:36:30 Tdap 8 completed Samira Taylor null, [facility] 02/28/2018 08:36:30 Influenza, split virus, trivalent, preservative 1 completed Samira Taylor null, [facility] 02/28/2018 08:36:30 Influenza, split virus, trivalent, preservative 2 completed Samira Taylor null, [facility] 02/28/2018 08:36:30 influenza, seasonal, intradermal, preservative free 3 completed Samira Taylor null, [facility] 02/28/2018 08:36:30 Influenza, split virus, quadrivalent, PF 2 completed GÓMEZ SPRINGER MD [address], [address], [facility] [place] 08/10/2022 16:32:51 Past Encounters Encounter ID Performer Location Encounter Start Date Encounter Closed Date Diagnosis/Indication Diagnosis SNOMED-CT Code Diagnosis ICD10 Code Diagnosis Note [id number] [facility] [facility] [address] [facility],[address] [facility] [place] [address] 02/17/2008 00:00:00 [id number] auto[employer] erce [address] [facility] [place] [address] 07/20/2008 00:00:00 [id number] [employer] erce [address] [facility] [place] [address] 08/03/2008 00:00:00 [id number] [employer] erce [address] [facility] [place] [address] 08/14/2008 00:00:00 [id number] [employer] erce [address] [facility] [place] [address] 11/28/2008 00:00:00 [id number] [employer] [address] [facility],[address] [place] [address] 12/07/2008 00:00:[id number] [place] [address] 01/11/2009 00:00:00 [id number] [address] [address] [place] [address] 05/15/2009 00:00:00 [id number] [facility] [facility] [address] [place] [address] 08/19/2009 00:00:00 [id number] [employer] [address] [place] [address] 11/18/2009 00:00:00 [id number] [employer] erce [address] [place] [address] 02/10/2010 00:00:00 [id number] [employer] erce [address] [facility] [place] [address] 05/29/2010 00:00:00 [id number] auto[employer]Comm erce [address] [facility] [place] [address] 01/05/2011 00:00:00 [id number] auto[employer]Comm erce [address] [facility] [facility] [address] [place] [address] 05/13/2011 00:00:00 [id number] auto[employer]Comm erce [address] [facility] [place] [address] 06/19/2011 00:00:00 [id number] auto[employer]Comm erce [address] [facility] [place] [address] 06/22/2012 00:00:00 [id number] auto[facility] erce [address] [place] [address] 01/24/2013 00:00:00 [id number] auto[employer] erce [address] [place] [address] 07/06/2013 00:00:00 [id number] [employer] erce [address] [place] [address] 08/09/2013 00:00:00 [id number] Desiree serra MD Main Office [address] [address] [place] [address] 07/09/2014 15:49:05 07/09/2014 16:35:54 Needs influenza immunization 803249601 Adult heal th examination 426100377 pt is doing well, pap, mammogram and colonoscop y are utd. Asthma 645100617 [id number] Erasmo Brown MD Main Office [address] [address] [place] [address] 10/31/2014 14:12:30 10/31/2014 14:52:30 Acute asthma 641599002 Laryngitis 37590687 [id number] CAIO Bernard Main Office [address] [address] [place] [address] 01/30/2015 09:56:57 01/30/2015 10:45:30 Acute asthma 477071287 will start with increasing symbicort dosing. if not improving she can call for prednisone rx. f/u in 1 month with spirometry to see how she is doing at the higher dose and to see if she should stay at that dose. Allergic rhinitis 65250037 a possible trigger for her given the time of year [id number] Desiree serra MD Main Office [address] [address] [place] [address] 05/04/2015 10:10:34 05/04/2015 11:24:53 Acute asthma 896749800 see above, 7 days, need to treat for asthma flare and for pneumonia due to bibasilar coarse ronchi/ral es, pt will get treated with prednisone , levaquin, updrafts at home, if any worsening pt to go to ER, pt to return her ein 48 hours for recheck and get CXR before visit. Allergic rhinitis 86214079 Pneumonia 194796110 mitra t with levaquin [id number] CAIO Enamorado Main Office [address] [address] [place] [address] 05/06/2015 13:11:25 05/06/2015 16:03:55 Acute asthma 737252255 improving with prednisone and albuterol inhaler, continue Pneumonia 322335364 comp lete course of levaquin, CXR results from this AM not available yet [id number] Desiree serra MD Main Office [address] [address] [place] [address] 07/10/2015 15:30:58 07/10/2015 16:16:20 Adult health examination 193417649 pt is doing well, pap, mammogram and colonoscop y are utd. Asthma 606349432 well controlled using spacer and trying to keep better work life blalance Hypothyroidism 00399088 continue meds [id number] Desiree serra MD Main Office [address] [address] [place] [address] 07/15/2016 15:32:27 07/15/2016 16:32:35 Adult health examination 716143994 Z00.00 pt is doing well, pap, mammogram and colonoscop y are utd. stress is up at work but has more help now Needs infl uenza immunization 745260527 Z23 Asthma 617533281 J45.90 9 well controlled using spacer and trying to keep better work life balance Hypothyroidism 15404439 E03.9 continue meds, level checked by Dr Loya, I requested the level [id number] CAIO Ramirez Main Office [address] [address] [place] [address] 01/26/2017 14:08:28 01/26/2017 15:05:32 Acute asthma 236681610 J45.901 Improving on prednisone , continue as prescribed , continue symbicort BID, inhaler as needed, call if not improved by wednesday. Hypothyroidism 80060788 E03.9 Call or return for worsening or concerns [id number] CAIO Ramirez Main Office [address] [address] [place] [address] 04/22/2017 10:55:17 04/22/2017 11:22:11 Herpes zoster 0976648 B02.9 rash developed on wednesday night, will tx with valacyclov ir TID x 7 days, continue iburpofen as needed. [id number] Desiree serra MD Main Office [address] [address] [place] [address] 09/08/2017 15:00:18 09/08/2017 16:02:37 Adult health examination 765818081 Z00.00 pt is doing well, pap, mammogram and colonoscop y are utd. Asthma 227637716 J45.90 9 well controlled using spacer and trying to keep better work life balance Hypercholesterolemia 136 86094 E78.2 check nonfasting for baseline [id number] CAIO Ramirez Main Office [address] [facility] [address] [place] [address] 09/30/2017 13:53:11 09/30/2017 14:26:20 Acute asthma 365890335 J45.901 longer prednisone taper and CXR today. hydration, rest Pneumonitis 878390033 J1 8.9 will tx with zpak due to asthma and duration of sx. also cxr today [id number] Desiree serra MD Main Office [address] [facility] [address] [place] [address] 09/24/2018 09:22:09 09/24/2018 10:27:28 Adult health examination 185619787 Z00.00 pt is doing well, pap, mammogram and colonoscop y are utd. Administra tion of viral vaccine 22691190 Z23 Hypothyroidism 41002530 E03.9 continue meds, level checked by Dr Loya Asthma 390955083 J45.90 9 pt to set up pulmonolog ist at [facility], used to see Dr Jarvis before he retired Acute asthma 544959466 J 45.901 pt to use prednisone if not improvong after 48 hours on abx Pneumonia 272705883 J18. 9 treat with doxycyclin e, colored sputum, hx of infection [id number] Erasmo Brown MD Main Office [address] [facility] [address] [place] [address] 02/03/2019 14:05:35 02/03/2019 14:31:38 Acute exacerbation of asthma 310784560 J45.901 continue inhaler 4 times daily x 48 hours, start medrol dose pack, continue symbicort daily as directed. call or return for worsening sx of if not better next week. Asthma 439299065 J45.90 9 Hypothyroidism 63543735 E03.9 stable, no concerns Allergic rhinitis 324097 04 J30.9 [id number] Desiree serra MD Main Office [address] [address] [place] [address] 10/13/2019 14:53:46 10/13/2019 15:39:39 Fever 046655376 R50.9 neg flu, Pneumonia 683597676 J18. 9 treat with doxycyclin e, colored sputum, hx of infection Acute asthma 371036292 J 45.901 if not improving could get started on prednisone [id number] Desiree serra MD Main Office [address] [address] [place] [address] 01/22/2021 15:25:27 01/22/2021 16:10:29 Adult health examination 897752627 Z00.00 pt is doing well, pap utd , mammogram is scheduled and colonoscop y are utd. Hypothyroidism 41138706 E03.9 continue meds, level checked by Dr Loya Moderate p ersistent asthma 772600684 J45.40 well controlled Vitamin D deficiency 347 84232 E55.9 dx with osteoporos is, will check Vit D, Dr Loya orders bone density is utd [id number] Desiree serra MD [facility] [address] [address] [place] [address] 09/15/2021 08:27:38 09/15/2021 11:15:[address] Loya retiring Osteoporosis 87160723 M8 1.0 PT will ask Gynt oroder as they have been responsibl e for bone density evaluation Moderate p ersistent asthma 225872300 J45.40 well controlled . continue med Fatigue 87599777 R53.83 check labs [id number] Quentin Padilla MD Main Office [address] [address] [place] [address] 12/30/2021 11:23:34 12/30/2021 12:48:20 Dyspnea 956922723 R06.00 Tight chest 54869395 R07 .89 Symptoms atypical with tinglig in lips and finger tips, she has good air entry with no wheezing on exam thus unlikely related to asthma however interestin gly symptoms slightly improved with inhaler.We lls PE and DVT score 0 however on auscultati on she was a little tachy, d-dimer ordered - status change to stat by terese.With new onset htn, will be extra cautious.E CG done NSR.Labs ordered.Gi diego nature of pain will get stress test, cardiology referral provided.S he did not to more belching thus PPI ordered and lifestyle changes discussed. TOMMIE/PHQ neg.Red flags discussed and when to go to ED. Increased belching 22342 005 R14.2 Elevated blood-pressure reading without diagnosis of hypertension 053429131 R03.0 No dx of HTN, EKG unremarkab le.Labs orderedAdv ised home BP checkLifes tyle changes discussedW ill have return in 2 weeks for BP check [id number] Quentin Padilla MD Main Office [address] [facility] [address] [place] [address] 01/14/2022 09:25:50 01/14/2022 10:16:19 Elevated blood-pressure reading without diagnosis of hypertension 864350513 R03.0 contiue to check BP at home, no treatment for now, will follow up with cardiology as planned. Call if readings > 140/85. Low salt diet, hydration [id number] Desiree serra MD Main Office [address] [address] 02/12/2022 14:45:30 02/12/2022 15:29:00 Adult health examination 767309981 Z00.00 pt is doing well, pap utd , mammogram is scheduled and colonoscop y are utd. 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 [address] [place] [address] 07/08/2022 14:21:31 07/08/2022 15:23:33 Moderate persistent asthma 923627556 J45.40 Pt is on ICS/LABA. Treating allergies, using singulair, has updraftprn . Will try pred taper and if not improved needs to ses pulmonary for followup Exacerbati on of moderate persistent asthma 062130322 J45.41 Will do prednisone taper and stay on present controller meds, call if not improving in the next week. [id number] GÓMEZ SPRINGER MD Main Office [address] [facility] [address] [place] [address] 07/27/2022 13:24:28 07/27/2022 14:05:33 Moderate persistent asthma 251231126 J45.40 - increase in need of patient usual medication - current regimen: nebulizer solution in the AM and PM, albuterol rescue inhaler 2X daily, symbicort 2puff/BID and montelukas t- pt symptoms are well controlled with current regimen- continue with symbicort 160 2 puff/BID and montelukas t 10mg QD- will add spiriva (LAMA)- c/w with nebulizer and rescue inhaler as needed- pt referred to pulmology due to uncontroll ed symptoms- pt symptoms could be due to history of history of COVID-19- ordered a chest x-ray to ensure no new pathology in the lungs- pt is currently no in exacerbati on therefore will not give another round of PO steroid- ED precaution s given- pt to follow-up in two weeks Essential hypertension 15727887 I10 - pt is currently on lisinopril 5mg for HTN- side effect of this medication is cough which could be contributi ng to patient's symptoms- since BP is WNL will stop medication and monitor patient's BP without any medication s- pt will monitor BP at home and bring values at next visit- pt to follow-up in two weeks [id number] GÓMEZ SPRINGER MD Main Office [address] [facility] [address] [place] [address] 08/10/2022 15:28:30 08/10/2022 16:05:15 Moderate persistent asthma 035484666 J45.40 - symptoms have improved: pt has stopped used her nebulizer solution and albuterol rescue inhaler BID QD- chest x-ray WNL- continue with symbicort 160 2 puff/BID, montelukas t 10mg QD and spiriva 2puff/BID as symptoms are well controlled - c/w with nebulizer and rescue inhaler as needed- can defer seeing a pulmonolog ist at this time- pt symptoms could be due to history of history of COVID-19 Essential hypertension 45915995 I10 - BP today: 129/66- home average 131/86- will continue to hold lisinopril as BP is well -controlle d, will focus on lifestyle modificati on- if BP not well controlled at next visit will start on ARB instead since lisinopril could have been cause of cough as well-Dieta ry Approaches to Stop Hypertensi on (DASH) is an eating plan rich in fruits, vegetables , whole grains, fish, poultry, nuts, legumes, and low-fat dairy. These foods are high in villegas nutrients such as potassium, magnesium, calcium, fiber, and protein. -Advised continued adherence to medication s and low salt diet - extensive counsellin g done regarding dietary habits. -Encourage d regular aerobic exercise 30 min for 4-5 x week. -BP monitoring at home advised to bring log at every visit -Side-effe cts of high BP can cause Stroke, Heart attack and even d/w pt -D/w pt when to call 911 or reach out to Health care provider: >Think you are having a reaction to a medicine you are taking. >Have headaches that keep coming back (recurring ). >Feel dizzy. >Have swelling in your ankles. >Have trouble with your vision. Hypothyroidism [id number] E03.9 - renewed medication Needs infl uenza immunization [id number] Z23 [id number] Desiree serra MD Main Office [address] [facility] [address] [facility] [place] [phone] 08/26/2022 14:52:20 08/26/2022 15:53:06 Moderate persistent asthma [id number] J45.40 Pt with intermitte nt wheezing would do steroid taper, stay on current treatments , using inhalers correctly and rinsing after, resume all inhalers when half way through taper. Albuterol prn Chronic hoarseness [id number] R49.0 pt takes inhalers daily but is good about rinsing after. Has intermitte nt hoarseness , needs laryngosco py to evaluate further. If no cause would then pursue GI [id number] GÓMEZ SPRINGER MD Main Office [address] [place] [phone] 12/08/2022 14:37:50 12/08/2022 15:32:03 Moderate persistent asthma [id number] J45.40 - symptoms have improved: pt has stopped used her nebulizer solution and albuterol rescue inhaler BID QD- chest x-ray WNL- continue with symbicort 160 2 puff/BID, montelukas t 10mg QD and albuterol as needed- pt has been following with pulmonolog ist:> spirometry testing on 03/2019> CT chest on 12/2021 was normal Hypothyroidism [id number] E03.9 - renewed medication - will check TSH levels Gastroesop hageal reflux disease [id number] K21.9 - currently under well control with lifestyle modificati on The following lifestyle changes are recommende d and counseled : -Losing weight: Losing weight helps people who are overweight to reduce acid reflux. -Raising the head of your bed six to eight inches -Avoiding foods that trigger symptoms ? Avoid excessive caffeine, chocolate, alcohol, peppermint , and fatty foods. Osteoporosis [id number] M8 1.0 - pt mentions she will have bone density scan this year with gynecologi st Essential hypertension [id number] I10 - BP today: 125/80 while on lisinopril - while patient takes lisinopril it worsens patients' cough therefore medication was switched to losartan 25mg QD -Dietary Approaches to Stop Hypertensi on (DASH) is an eating plan rich in fruits, vegetables , whole grains, fish, poultry, nuts, legumes, and low-fat dairy. These foods are high in villegas nutrients such as potassium, magnesium, calcium, fiber, and protein.-A dvised continued adherence to medication s and low salt diet - extensive counsellin g done regarding dietary habits.-En couraged regular aerobic exercise 30 min for 4-5 x week.-BP monitoring at home advised to bring log at every visit-Side -effects of high BP can cause Stroke, Heart attack and even d/w pt-D/w pt when to call 911 or reach out to Health care provider:> Think you are having a reaction to a medicine you are taking.>Leal ve headaches that keep coming back (recurring ).>Feel dizzy.>Hav e swelling in your ankles.>Leal ve trouble with your vision. Adult heal th examination [id number] Z00.00 Health Maintenanc e FemaleA) Patient was counseled on healthy diet, exercise and nutrition. BMI is 19.4 B) ScreeningL ast Mammogram: start at age 50 stop at 74Date: 05/13/2022 esult: BIRADS-1, dense breastsNex t: 04/2023 Last Pap smear: start at age 21 to age 65Date: 07/26/2019 Results: HPV negative, negative for intraepith elial lesionsNex t: 5 years, 07/2024 Last Colonoscop y: start at age 45-75Date: 12/29/2013 Result: normalNext : repeat in 10 years therefore 12/2023 Last DEXA scan:Date: 04/22/2017 -> pt will have it done this yearResult : osteopenia C) Vaccines:I nfluenza: 08/10/2022 TdAP: 09/24/2018 Zoster: pt states this has completed however does not have the recordPCV1 3: due at 55NRAC69: 10/25/04PC V20:PCV15: COVID: 01/03/2021 , 02/13/2021 , 09/23/2021 D) Routine blood work orderedE) Updated patient's history RTC in one year for annual exam or sooner if any acute complaints Fatigue 39132077 R53.83 Z00.00 Hyperlipidemia 44047960 E78.5 Z00.00 Atypical chest pain 1025 53786 R07.89 - most recent episode was on 12/05- EKG on 12/2021 was NSR- pt asthma is very well controlled therefore no believe the chest tightness is due to pulmonary etiology- ordered an exercise stress test for further evaluation [id number] Elio Wetzel MD Main Office [address] [place] [address] [place] [phone] 03/15/2024 14:40:11 03/15/2024 15:23:58 Adult health examination [id number] Z00.00 Health Maintenanc e FemaleA) Patient was counseled on healthy diet, exercise and nutrition. BMI is 19.4 B) ScreeningL ast Mammogram: start at age 50 stop at 74Date: lt: BIRADS-1, pt will have notes faxedNext: 04/2024 Last Pap smear: start at age 21 to age 65Date: 07/26/2019 Results: HPV negative, negative for intraepith elial lesionsNex t: 5 years, 07/2024 Last Colonoscop y: start at age 45-75Date: 12/29/2013 Result: normalNext : repeat in 10 years therefore 12/2023 Last DEXA scan:Date: lt: osteoporos is C) Vaccines:I nfluenza: 08/10/2022 TdAP: 09/24/2018 Zoster: pt states this has completed however does not have the recordPPSV 23: 10/25/04CO VID: 01/03/2021 , 02/13/2021 , 09/23/2021 D) Routine blood work orderedE) Updated patient's history RTC in one year for annual exam or sooner if any acute complaints Moderate p ersistent asthma [id number] J45.40 - was hospitaliz ed 09/2023 for asthma exacerbati on/pneumon ia/sepsis- uses symbicort, albuterol inhaler as directed and nebulizer prn- continue with montelukas t 10mg QD- pt has been following with pulmonolog ist> spirometry testing on 03/2019> CT chest on 12/2021 was normal Hypothyroidism 18754108 E03.9 - will check TSH levels Gastroesop hageal reflux disease 274540162 K21.9 - currently under well control with lifestyle modificati on The following lifestyle changes are recommende d and counseled : -Losing weight: Losing weight helps people who are overweight to reduce acid reflux. -Raising the head of your bed six to eight inches -Avoiding foods that trigger symptoms ? Avoid excessive caffeine, chocolate, alcohol, peppermint , and fatty foods. Osteoporosis 43154526 M8 1.0 - had DEXA scan completed 04/2023; revealed osteoporos is- pt will call to fax paperwork over Essential hypertension 00238032 I10 - BP today: 120/68 while on lisinopril - continue with losartan 25mg QD -Dietary Approaches to Stop Hypertensi on (DASH) is an eating plan rich in fruits, vegetables , whole grains, fish, poultry, nuts, legumes, and low-fat dairy. These foods are high in villegas nutrients such as potassium, magnesium, calcium, fiber, and protein.-A dvised continued adherence to medication s and low salt diet - extensive counsellin g done regarding dietary habits.-En couraged regular aerobic exercise 30 min for 4-5 x week.-BP monitoring at home advised to bring log at every visit-Side -effects of high BP can cause Stroke, Heart attack and even d/w pt-D/w pt when to call 911 or reach out to Health care provider:> Think you are having a reaction to a medicine you are taking.>Leal ve headaches that keep coming back (recurring ).>Feel dizzy.>Hav e swelling in your ankles.>Leal ve trouble with your vision. Fatigue 64202193 R53.83 Z00.00 Hyperlipidemia 93518497 E78.5 Z00.00 Screening for malignant neoplasm of colon 291404326 Z12.11 last colonoscop y was 12/29/2013 -pt will schedule [id number] Elio Wetzel MD Main Office [address] [facility] [address] [facility] [place] [phone] 07/26/2024 12:43:20 07/26/2024 13:17:28 Exacerbation of moderate persistent asthma 204321409 J45.41 about 2 weeks of intermitte nt wheezing and increase usage of symbicort and albuterol inhaler-la st exacerbati on was 09/2023-ex piratory wheezing appreciate d on PE in bilateral lobes-will provide steroid taper and discussed to continue with current inhalers as directed [id number] Elio Wetzel MD Main Office [address] [facility] [address] [place] [phone] 10/11/2024 10:06:19 10/11/2024 10:31:33 Pneumonia [id number] J18.9 x2 days of symptoms>c ough, congestion , wheezing, low O2 saturation at home-repor ts of having similar presentati on about 1 year ago and was hospitaliz ed for pneumonia- on PE>crackle s were appreciate d in bilateral lower lobes>mild wheezing appreciate d in upper right lobe-will provide combinatio n augmentin and z-pack-dis cussed to continue with conservati ve measuremen ts-pt will contact the office if no improvemen ts or worsening symptoms after completing antibiotic and steroid course Exacerbati on of moderate persistent asthma [id number] J45.41 -see above-disc ussed to continue with inhalers and updraft-ex periencing low O2 levels at home after coughing fits-will provide short steroid course-dis cussed to continue with conservati ve measuremen ts, inhalers/u pdraft Health Concerns Section Related Observation LastModified by Organization Detai ls LastModified Time None Recorded Concern Status LastModified by Organization Details LastModified Time None Recorded Advance Directives Directive None Recorded Payers Insurance Date Sequence Insurance Name Policy Number Policy Fitzgerald Covered Member ID Fitzgerald Member ID Guarantor Name 03/15/2024 1 [employer] [id number] Kristine Carndrew [id number] Kristine Wang Roni 03/15/2024 1 [facility]) [id number] Kristine Wang Roni [id number] Kristine Carndrew 04/07/2025 1 [facility] [id number] Kristine Carndrew [id number] Kristine Wang Roni 03/15/2024 1 [facility] Kristine Carndrew [id number] Kristine Carndrew 03/15/2024 1 [facility]) [id number] Kristine Wang Roni [id number] Kristine Kathleen Tamayo 07/25/2024 1 [facility] [id number] Kristine Wang Roni [id number] Kristine Wang Roni Notes Date Note Type Note Provider Name and Address Organization Details Recorded Time 08/26/2022 text/html laryngitis one a month for 6 mos, no triggers, does not have any new enviromental changes. Does not feel ill during this time, just loses her voice, hard to work and communicate. No illness sx no dysphagiaWheezing, has asthma, using all inhalers, rinses after Deonna razo [facility] [place] 09/07/2022 07:20:04 12/08/2022 text/html Angina/Chest PainReported bypatient.Location:[facility] Quality:sharp Severity:mild Duration:lasts minutes Onset/Timing:intermi ttent Alleviating Factors:tried inhaler, wait 15 mins Associated Symptoms:shortness of breath;diaphoresis;l ightheadednessNotes: Episode on 12/05 lasted 20 mins and occurred while patient was sitting. Pt has not had any recent stressors. Pain started on the left side and later radiated throughout the chest. Pt does mention that this is different from her chest tightness that she sometimes gets with her asthma.Hypertension F/UReported bypatient.Notes:Jennifer ent here for follow-up of elevated blood pressure. Pt is exercising and is adherent to a low-salt diet. Blood pressure is not well controlled at home. Cardiac symptoms: one episode of chest pain. Patient denies:headache, dizziness, lower extremity edema, heart palpitations. Cardiovascular risk factors: HTN. Use of agents associated with hypertension: none. History of target organ damage: none. Kristine Tamayo is a 57 year old F who presented to the clinic for her annual exam. Pt has had no ED or hospital visits this years. Complaints: pt has one episode of chest pain (12/05). This was second episode in the last two months. 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 Pt has been using nasal solution which has been improving her cough. Is not using ASA.OTC/Herbal supplements use: taking calcium and vitamin d Gynecologic HistoryPatient's last menstrual period was at age 44Sexually active: yes with husbandContraception : none- abnormal papsDenies cysts, stds, fibroids Obstetric HistoryGravida: 3Para: 3AB: 0LivinComplications: vaginal, no complications Drug use: noneEtoh use: occasionally 2-3 times a week, winetobacco use: never smokerspf/derm: yes Dental: twice yearlyEye: has in the pastDiet: regularActivity: walking at least 2 times weekly for one hour GÓMEZ SPRINGER MD [address] [address], [place], [phone], [facility] [place] 12/08/2022 19:58:10 03/15/2024 text/html Kristine Tamayo is a 58 year old F who presented to the clinic for her annual exam. Was hospitalized in September, for asthma exacerbation/pneumon ia/sepsis. Complaints: none Is not using ASA.OTC/Herbal supplements use: taking calcium and vitamin d Gynecologic HistoryPatient's last menstrual period was at age 44Sexually active: yes with husbandContraception : none- abnormal papsDenies cysts, stds, fibroids Obstetric HistoryGravida: 3Para: 3AB: 0LivinComplications: vaginal, no complications Drug use: noneEtoh use: occasionally 2-3 times a week, winetobacco use: never smokerspf/derm: yes Dental: twice yearlyEye: has in the pastDiet: regularActivity: walking at least 2 times weekly for one hour FAUSTO DONOVAN [address], [phone], [facility] [place] 03/31/2024 09:31:16 07/26/2024 text/html Kristine is a 59yr o ld F who presents for asthma exacerbation for almost 2 weeks. Reports the last time she experienced an exacerbation was last winter when she had to be hospitalized. Has been using her symbicort and rescue inhaler more than usual over the past 2 weeks. FAUSTO DONOVAN [address], [phone], [facility] [place] 07/26/2024 13:22:30 10/11/2024 text/html Kristine is a 59yr o ld F who presents for cough, congestion, and asthma exacerbation x2 days. Reports of experiencing a productive cough, chest congestion, wheezing, and monitoring a low O2 level at home after coughing fits. Reports of having a similar episode about 1 year ago where she was hospitalized for pneumonia and asthma exacerbation. Has been compliant with her inhalers, updraft, and OTC medications for symptoms relief. Reports the cough, congestion, and difficulty with taking deep inhalations have worsened since onset. Denies of any other associated symptoms. FAUSTO DONOVAN [address] [address], [place], [address], [facility] 10/11/2024 10:36:10 OBGyn Episode No OBEpisode recorded.
--- NOTE | 2025-04-10 12:04 | PHA.MEDREC ---
Addendum entered by Jewels Prieto [facility] 04/10/25 12:20: reviewed Original Note: Pharmacy Consult ? Medication Reconciliation Pharmacy has completed the medication reconciliation. Spoke with pt and she confirmed her medications. Pt confirmed her Prednisone 20mg regimen and confirmed she started it Wednesday and is taking 3 tabs for 3 days, 2 tabs for 3 days and 1 tab for 3 days and confirmed she just started the 2 tabs for 3 days this morning.
[2025-04-10] MEDS: Enoxaparin Sodium 40 MG/0.4 ML SYRINGE SUBCUT (12:05)
[2025-04-10] MEDS: levalbuterol HCL 3.75 MG, Ipratropium Bromide 0.5 MG INHALE (15:53)
[2025-04-10] MEDS: Azithromycin 500 MG TABLET PO (16:26)
--- NOTE | 2025-04-10 16:33 | PC.NURSE ---
Pt IV dislodged during transfer to [facility], IV removed and new #20 guage placed LAC
[2025-04-10] MEDS: Montelukast Sodium 10 MG TABLET PO (21:58)
[2025-04-10] MEDS: Losartan Potassium 25 MG TABLET PO (21:58)
[2025-04-10] MEDS: methylPREDNISolone Sod Succ 40 MG/ML VIAL IVPUSH (21:58)
[2025-04-11] MEDS: 0.9 % Sodium Chloride Flush 3 ML SYRINGE IVFLUSH ×2 (01:13→07:38)
[2025-04-11 02:43] VITALS: BP 127/66; PULSE 80; RESP 16; TEMP 36.6; O2SAT 94
[2025-04-11 06:08] LABS: MANUAL DIFF FLAG NO
[2025-04-11] MEDS: Levothyroxine Sodium 75 MCG TABLET PO (06:21)
[2025-04-11 06:24] LABS: Basophils Percent Auto 0.1 % (0-2); Hematocrit 35.9 % (37.0-47.0); Hemoglobin 12.1 g/dl (12.0-16.0); Imm Gran Abs Auto 0.07 X10*3/uL (0.00-0.03); Imm Gran Pct Auto 0.7 % (0.0-0.4); Lymphocytes Absolute Auto 0.7 X10*3/uL (1.2-4.9); Lymphocytes Percent Auto 6.9 % (20-40); Mean Corpuscular HGB Conc 33.7 g/dl (31.0-35.0); Mean Corpuscular Hemoglobin 30.9 pg (27.0-33.0); Mean Corpuscular Volume 91.6 fL (80.0-98.0); Mean Platelet Volume 9.9 fL (9.4-12.3); Monocytes Absolute Auto 0.4 X10*3/uL (0.1-1.2); Monocytes Percent Auto 3.8 % (2-11); Neutrophils Absolute Auto 9.4 x10*3/uL (2.0-8.3); Neutrophils Percent Auto 88.5 % (45-73); Platelet Count 213 X10*3/uL (160-400); Red Blood Count 3.92 X10*6/uL (4.20-5.50); White Blood Count 10.6 X10*3/uL (4.8-10.8)
[2025-04-11 06:27] LABS: Anion Gap 12 (12-20); Blood Urea Nitrogen 14 mg/dL (9-16); Carbon Dioxide 22 mmol/L (22-29); Chloride 111 mmol/L (96-108); Creatinine Clr Calc Pharmacy 78.7; Estimated Glomerular Filt Rate > 60; Glucose Random 136 mg/dL (60-115); Potassium 4.5 mmol/L (3.3-5.1); Sodium 140 mmol/L (135-145)
[2025-04-11 07:27] VITALS: BP 128/68; PULSE 81; RESP 16; TEMP 37.1; O2SAT 93
[2025-04-11] MEDS: Calcium Oyster Shell Elemental 500 MG TABLET PO (07:36)
[2025-04-11] MEDS: methylPREDNISolone Sod Succ 40 MG/ML VIAL IVPUSH (07:36)
[2025-04-11] MEDS: Aspirin Enteric Coated 81 MG TABLET.DR PO (07:36)
[2025-04-11] MEDS: guaiFENesin 200 MG/10 ML 10 ML LIQUID PO (07:51)
--- NOTE | 2025-04-11 09:25 | MHC.CM.PN ---
Addendum entered by Ava Oliveira 04/11/25 09:46: DP: PT HAS BEEN MEDICALLY CLEARED FOR DC HOME, NO SERVICES. PT'S SPOUSE WILL TRANSPORT. Original Note: [facility] DELIVERED. PT LIVES WITH SPOUSE AND IS FUNCTIONALLY INDEPENDENT. NO SERVICES. PT HAS HOME NEBULIZER MACHINE. + HCP ON FILE AND VERIFIED. PCP JIMMIE SPRINGER DP: HOME, NO SERVICES IS ANTICIPATED. PT'S SPOUSE WILL TRANSPORT HOME. CM WILL CONTINUE TO FOLLOW FOR ANY CHANGE TO DC PLAN/NEEDS.
--- NOTE | 2025-04-11 09:32 | P.DS_ITS ---
DS: Providers Provider Date of Service: 04/11/25 Date of admission: 04/10/25 11:56 Date of discharge: 04/11/25 Primary care physician: Veronica Sanchez MD DS: Diagnosis Discharge Diagnosis (1) Asthma with exacerbation: Status: Acute DS: Summary Hospital Course Hospital Course: Chief Complaint: Cough, acute asthma exacerbation 59 year old female with a past medical history of asthma, hypertension, and hypothyroidism presents to the ED with shortness of breath, wheezing and coughing for 1 week. Patient reports that she has had increased shortness of breath since Wednesday, patient reports that she has been using her nebulizers 4 times a day, went to her primary care and was prescribed a prednisone taper, she took 60 mg Wednesday and Wednesday, continued to have increased shortness of breath, cough, wheezing, difficulty sleeping so she presents today for further care and treatment. Per patient she checks her oxygen saturations and peak flows at home, noticed that her peak flows were decreasing in her oxygen saturation was lower than usual. Patient had a hospitalization for an acute exacerbation September 2023 when she tested positive for influenza A. She has not been hospitalized since then. She has been in her normal state of health. On exam she denies any dizziness, lightheadedness, abdominal pain, nausea vomiting, diarrhea. She denies any fever or chills, night sweats, chest pain or pressure. Reports feeling short of breath, reports that she has some productive cough of greenish sputum. Denies any pain with inspiration. In the ED her blood work was without leukocytosis, EKG unremarkable, chest Xray was negative. Troponins were flat, BNP negative. Blood gases within normal limits. Viral panel negative. In the ED she received nebulizer treatments, Solu-Medrol, a dose of magnesium sulfate. She will be admitted for acute asthma exacerbation. hosptial course: The patient was admitted and treated with IV corticosteroids and bronchodilators via nebulizer, resulting in a [id number] recovery. She is now breathing comfortably, with clear lungs, and is eager to be discharged. She will be discharged with a prednisone taper and home inhalers. She is a non-smoker. \ Time Attestation Discharge Coordination Time (in mins): 45 Quality: Safe Use of Opioids Does Pt have an Active Cancer Diagnosis on the Problem List?: No Quality: Stroke Does the patient have a stroke diagnosis?: No Physical Exam Vital Signs: Vital Signs: Last Vital Signs Temp 98.7 F 04/11/25 07:27 Pulse 81 04/11/25 07:27 Resp 16 04/11/25 07:27 BP 128/68 04/11/25 07:27 Pulse Ox 93 04/11/25 07:27 O2 Del Method Room Air 04/11/25 07:27 BMI result Body Mass Index 18.8 DS: Data Data Completed and Pending Labs on day of discharge: Laboratory Results - last 24 hr 04/10/25 04/10/25 04/10/25 09:50 10:03 10:07 WBC 10.0 RBC 4.10 L Hgb 12.7 Hct 36.8 L MCV 89.8 MCH 31.0 MCHC 34.5 RDW 12.6 Plt Count 208 MPV 9.5 Immature Gran % (Auto) 0.7 H Neut % (Auto) 87.1 H Lymph % (Auto) 6.8 L [place] % (Auto) 5.3 Eos % (Auto) 0.0 Baso % (Auto) 0.1 Lymph # (Auto) 0.7 L [place] # (Auto) 0.5 Eos # (Auto) 0.0 Baso # (Auto) 0.0 Abs Immat Gran (auto) 0.07 H Absolute Neuts (auto) 8.7 H Absolute Nucleated RBC 0.000 Nucleated RBC % (auto) 0.0 VBG pH 7.50 H VBG pCO2 30 VBG pO2 161 VBG HCO3 24 VBG O2 Saturation 100.0 VBG Base Excess 1.9 Sodium 142 Potassium 3.8 Chloride 109 H Carbon Dioxide 24 Anion Gap 13 BUN 13 Creatinine 0.65 Estim Creat Clear Calc 71.4 Estimated GFR > 60 Random Glucose 113 Calcium 9.5 Total Bilirubin 1.2 H AST 22 ALT 17 Alkaline Phosphatase 57 Troponin I High Sens < 2.7 B-Natriuretic Peptide 44 Total Protein 6.8 Albumin 4.3 Influenza Type A (PCR) NEGATIVE Influenza Type B (PCR) NEGATIVE RSV RNA Qual (PCR) NEGATIVE SARS-CoV-2 RNA (RT-PCR) NEGATIVE 04/11/25 05:45 WBC 10.6 RBC 3.92 L Hgb 12.1 Hct 35.9 L MCV 91.6 MCH 30.9 MCHC 33.7 RDW 13.0 Plt Count 213 MPV 9.9 Immature Gran % (Auto) 0.7 H Neut % (Auto) 88.5 H Lymph % (Auto) 6.9 L [place] % (Auto) 3.8 Eos % (Auto) 0.0 Baso % (Auto) 0.1 Lymph # (Auto) 0.7 L [place] # (Auto) 0.4 Eos # (Auto) 0.0 Baso # (Auto) 0.0 Abs Immat Gran (auto) 0.07 H Absolute Neuts (auto) 9.4 H Absolute Nucleated RBC 0.000 Nucleated RBC % (auto) 0.0 VBG pH VBG pCO2 VBG pO2 VBG HCO3 VBG O2 Saturation VBG Base Excess Sodium 140 Potassium 4.5 Chloride 111 H Carbon Dioxide 22 Anion Gap 12 BUN 14 Creatinine 0.59 Estim Creat Clear Calc 78.7 Estimated GFR > 60 Random Glucose 136 H Calcium 9.0 Total Bilirubin AST ALT Alkaline Phosphatase Troponin I High Sens B-Natriuretic Peptide Total Protein Albumin Influenza Type A (PCR) Influenza Type B (PCR) RSV RNA Qual (PCR) SARS-CoV-2 RNA (RT-PCR) Discharge Plan Discharge Anticipated Discharge Date/Time: 04/11/25 09:13 Patient Disposition: Home, Self-Care Discharge Diagnosis: Asthma exacerbation Referrals: Veronica Sanchez MD [Primary Care Provider, [facility]] - 1 Week Discharge Medications: New prednisone 10 mg tablet See Taper PO DIRECTED Qty: 20 0RF Taper: Prednisone 40 mg daily for 2 Days and 0 Hour 30 mg daily for 2 Days and 0 Hour 20 mg daily for 2 Days and 0 Hour 10 mg daily for 1 Day and 0 Hour Rx Instructions: see taper instructions Continued levothyroxine 75 mcg tablet 75 mcg PO DAILY@0600 losartan 25 mg tablet 25 mg PO BEDTIME montelukast 10 mg tablet 10 mg PO BEDTIME budesonide-formoterol [Symbicort] 160-4.5 mcg/actuation HFA aerosol inhaler 2 puff INHALATION BID aspirin 81 mg Tablet,Delayed Release (Dr/Ec) 81 mg PO DAILY calcium carbonate 500 mg calcium (1,250 mg) Tablet 500 mg PO DAILY albuterol sulfate 90 mcg/actuation HFA aerosol inhaler 2 inh inhalation Q6-8H PRN (Reason: shortness of breath) Qty: 18 0RF Claritin 10 mg Tablet,Chewable 10 mg PO DAILY Discontinued prednisone 20 mg tablet See Taper PO DAILY Taper: Prednisone 40 mg daily for 3 Days and 0 Hour 20 mg daily for 3 Days and 0 Hour Discharge Orders: Discharge Order (Routine); Ordered 04/11/25 Ordered By: Jimbo Cole Diet: Advance to usual diet Activity on Discharge: As tolerated Stand Alone Forms: Patient Portal Discharge page Print Language: Guatemalan Care Plan Goals: recovery from asthma exacerbation Health Concerns: asthma exacerbation Plan of Treatment: take prednisone Assessment: see above
== END 2025-04-11 10:07 | disposition home or self-care (01) | DRG 141 ==
LOC: HO.ED 11:19 → HO.EDOVER 11:34 → HO.S3 16:32
PROVIDERS: Nurse Practitioner Family; Physician Assistant Medical; Admitting Provider Student in an Organized Health Care Education/Training Program; Emergency Provider Emergency Medicine; PCP Student in an Organized Health Care Education/Training Program; Visit Provider Internal Medicine
DX: J45.41 Moderate persistent asthma with (acute) exacerbation (principal); E03.9 Hypothyroidism, unspecified; I10 Essential (primary) hypertension; Z20.822 Contact with and (suspected) exposure to COVID-19; Z79.82 Long term (current) use of aspirin; Z79.890 Hormone replacement therapy; Z79.899 Other long term (current) drug therapy
CPT/HCPCS: 0241U; 36415; 71045; 80048; 80053; 82803; 83880; 84484; 85025; 93005; 94640; 99285; J1650; J2919; J3475

== ENCOUNTER → 2025-04-10 09:37 | Outpatient (BNV) | payer BC, SELFPAY | PROVIDERS: Admitting Provider Student in an Organized Health Care Education/Training Program; Emergency Provider Emergency Medicine; PCP Student in an Organized Health Care Education/Training Program; Visit Provider Internal Medicine Cardiovascular Disease | DX: R94.31 Abnormal electrocardiogram [ECG] [EKG] (principal); R06.00 Dyspnea, unspecified | CPT/HCPCS: 93010 ==

== ENCOUNTER → 2025-04-10 09:37 | Outpatient (BNV) | payer BC, SELFPAY | PROVIDERS: Emergency Provider Emergency Medicine; PCP Student in an Organized Health Care Education/Training Program; Visit Provider Radiology Diagnostic Radiology | DX: R06.00 Dyspnea, unspecified (principal) | CPT/HCPCS: 71045 ==

== ENCOUNTER → 2025-04-10 11:56 | Outpatient (BNV) | payer BC, SELFPAY | PROVIDERS: Admitting Provider Student in an Organized Health Care Education/Training Program; Emergency Provider Emergency Medicine; PCP Student in an Organized Health Care Education/Training Program; Visit Provider Nurse Practitioner Family | DX: J45.41 Moderate persistent asthma with (acute) exacerbation (principal) | CPT/HCPCS: 99239 ==

== ENCOUNTER 2025-07-07 07:22 | Outpatient (REF) | payer BC, SELFPAY ==
--- OUTSIDE RECORDS SUMMARY | 2025-04-05 17:00 | XMS_ITS | Encounter Summary ---
Author Organization [facility]ly [facility] Address [address] [place] [address] Phone Care Team Providers Care Tinner Automatic Name Role Phone Veronica Sanchez MD Primary Care Provider Encounter Details Date Type Department Care Team (Late st Contact Info) Description 04/05/2025 5:00 PM EDT Hospital Encounter [facility] [address] [place] [id number] Catina Mari CNP [address] [place] [id number] [email or web address] Social History Tobacco Use Types Packs/Day Years Used Date Smoking Tobacco: Never Smokeless Tobacco: Never Education Answer Date Recorded Are you interested in more education? Not on yola e 09/07/2023 Are you concerned about learning? Not on file 09/07/2023 No 09/07/2023 No 09/07/2023 Digital Access Answer Date Recorded No 09/07/2023 No 09/07/2023 Reliable internet access at home? Not on file 09/07/2023 Device with a working camera? Not on file Comments Unknown Sex and Gender Information Value Date Recorded Sex Assigned at Not on file Legal Sex Female 2:55 PM EST Gender Identity Not on file Sexual Orientation Not on file documented as of this encounter Plan of Treatment Not on file documented as of this encounter Procedures Procedure Name Priority Date/Time Associated Diagnosis Comments XR CHEST PA AND LATERAL 2 VIEWS Urgent/patient waiting 04/05/2025 5:03 PM EDT Shortness of breath documented in this encounter Results * XR CHEST PA AND LATERAL 2 VIEWS (04/05/2025 5:03 PM EDT) Anatomical Region Laterality Modality Chest Computed Radiogr aphy 04/05/2025 5:27 PM EDT Impressions 04/05/2025 5:27 PM EDT No acute abnormality. Narrative 04/05/2025 5:27 PM EDT XR CHEST PA AND LATERAL 2 VIEWS Referring clinician's provided indication for this examination in [facility]: Cough; Dyspnea (Shortness of Breath); RLL crackles/ h/o asthma COMPARISON: None FINDINGS: Devices/Tubes/Lines: None. Lungs: No focal consolidation or pulmonary edema. Pleura: No pleural effusion or pneumothorax. Heart/Mediastinum: Normal heart and mediastinum. Bones/Soft Tissues: Mild thoracic spine degenerative changes, and moderate levoconvex configuration. Procedure Note Arnaud Meng MD, PhD - 04/05/2025 XR CHEST PA AND LATERAL 2 VIEWS Referring clinician's provided indication for this examination in [facility]:Cough; Dyspnea (Shortness of Breath); RLL crackles/ h/o asthma COMPARISON: None FINDINGS: Devices/Tubes/Lines: None. Lungs: No focal consolidation or pulmonary edema. Pleura: No pleural effusion or pneumothorax. Heart/Mediastinum: Normal heart and mediastinum. Bones/Soft Tissues: Mild thoracic spine degenerative changes, and moderatelevoconvex configuration. IMPRESSION: No acute abnormality. Catina Mari BAGGAGEMASTER IMG XR CHEST Final Resul t documented in this encounter Visit Diagnoses Not on filedocumented in this encounter Care Teams Tinner Automatic Relationship Specialty Start Date End Date Veronica Sanchez MD [address] [phone] PCP - General Family Medicine 09/07/23 documented as of this encounter Additional Source Comments The information contained in this document represents components of the legal health record. It is not the complete legal health record.[facility]ly [facility]
--- OUTSIDE RECORDS SUMMARY | 2025-07-07 07:25 | XMS_ITS | Clinical Summary ---
Author Organization [facility] Address [address] [facility] [address] [place] [phone] Phone Care Team Providers Care Consulting Business Developer Name Role Phone Veronica Sanchez MD Primary Care Provider [phone] Allergies Active Allergy Reactions Criticality Noted Date Comments Clarithromycin 09/07/2023 Lisinopril Cough 04/05/2025 Medications SYMBICORT 160-4.5 mcg/actuation inhaler Inhale 2 puffs into the lungs 2 (two) times a day. 3 Active levothyroxine (SYNTHROID, LEVOTHROID) 75 MCG tablet Take 75 mcg by mouth daily. 3 Active losartan (COZAAR) 25 MG tablet Take 1 tablet by mouth every morning. 3 Active montelukast (SINGULAIR) 10 mg tablet Take 10 mg by mouth daily. 3 Active albuterol (ACCUNEB) 1.25 mg/3 mL nebulizer solution USE 3 ML VIA NEBULIZER THREE TIMES DAILY NEEDED Active loratadine 10 mg Cap Take 1 capsule every day by oral route. Active metaxalone (SKELAXIN) 800 MG tablet Active ospemifene (OSPHENA) 60 mg tablet Take 1 tablet by mouth daily. Active tiotropium bromide 1.25 mcg/actuation Mist INHALE 2 PUFFS BY MOUTH EVERY DAY Active predniSONE (DELTASONE) 20 MG tablet 3 tablets X 3 days, 2 tablets X 3 days , 1 tablet X 3 days 18 tablet 5 Active Active Problems Problem Noted Date Diagnosed Date Hypertension 04/05/2025 Family history of pulmonary fibrosis 04/05/2025 Moderate persistent asthma 09/15/2021 Osteoporosis 01/22/2021 Allergic rhinitis 08/09/2013 Extrinsic asthma 08/09/2013 Gastroesophageal reflux disease 08/09/2013 Hypothyroidism 08/09/2013 Immunizations Immunization Administration Dates Next Due INFLUENZA, SPLIT VIRUS, TRIVALENT PF 07/16/2017, 08/04/2015,07/09/2014 INFLUENZA, SPLIT VIRUS, TRIV ALENT W/ PRESERVATIVE IM 06/22/2012,09/16/2011,07/20/2008 Influenza Quadrivalent MDCK Preservative Free IM 07/17/2020 Influenza Quadrivalent Prese rvative Free IM 07/20/2023,08/10/2022,08/04/2021,2017,07/16/2016 Influenza Quadrivalent w/ Preservative IM 07/17/2021,08/08/2018 Influenza Trivalent MDCK Pre servative Free IM 07/18/2024 Influenza trivalent preserva tive free intradermal 07/06/2013 Pneumococcal conjugate PCV13 10/25/2004 Pneumococcal conjugate PCV21 11/11/2024 Social History Tobacco Use Types Packs/Day Years [...] on file Sexual Orientation Not on file Last Filed Vital Signs Vital Sign Reading Time Taken Comments Blood Pressure 150/80 04/05/2025 4:40 PM EDT Pulse 72 04/05/2025 4:40 PM EDT Temperature 36.7 C (98 F) 04/05/2025 4:40 PM EDT Respiratory Rate 18 04/05/2025 4:40 PM EDT Oxygen Saturation 99% 04/05/2025 4:40 PM EDT Inhaled Oxygen Concentration - - Weight - - Height - - Body Mass Index - - Plan of Treatment Health Maintenance Due Date Last Done Comments CREATININE LEVEL 1963 LIPID PANEL 1963 POTASSIUM LEVEL 1963 TSH LEVEL 1963 DEPRESSION SCREENING 1975 HEPATITIS C SCREENING 1981 HIV ONE-TIME SCREENING (18-65 YEARS) 1981 PAP SMEAR 1984 COLOGUARD 2008 COLONOSCOPY 2008 COLORECTAL CANCER SCREENING 2008 FIT TEST 2008 FOBT 2008 SIGMOIDOSCOPY 2008 VIRTUAL COLONOSCOPY 2008 ZOSTER VACCINES (1 of 2) 2013 RSV VACCINE (1 - Risk 60-74 years 1-dose series) 2023 MAMMOGRAM 05/13/2024 05/13/2022 INFLUENZA VACCINE (#1) 2025 , 07/20/2023, 08/10/2022, Additional history exists COVID-19 VACCINE ( - 2024- season) 2025 09/23/2021, 02/13/2021, 01/03/2021 BLOOD PRESSURE 10/05/2025 04/05/2025 Adult Td,Tdap Booster 09/24/2028 09/24/2018, 008 PNEUMOCOCCAL VACCINES (50+ years) Completed 11/11/2024, 10/25/2004, 10/25/2004 SMOKING STATUS SCREENING (Once After 26 Yrs) Completed 04/05/2025 HEPATITIS A VACCINES Aged Out No long er eligible based on patient's age to complete this topic HIB VACCINES Aged Out No longer eligi ble based on patient's age to complete this topic MENINGOCOCCAL VACCINES (ACWY) Aged Out No longer eligible based on patient's age to complete this topic MENINGOCOCCAL VACCINES (B) Aged Out N o longer eligible based on patient's age to complete this topic Medical Devices Not on file Insurance [facility] Member Subscriber Plan / Payer (Ef fective 2023-Present) Name:Kristine Tamayo Relation to Subscriber:Self Name:Kristine Tamayo Payer ID:Not on file Type:PPO Address: [address] [facility] Member Subscriber Plan / Payer (Ef fective 2023-Present) Name:Kristine Tamayo Relation to Subscriber:Self Name:Kristine Tamayo Payer ID:Not on file Type:PPO Address: [address] [facility] Member Subscriber Plan / Payer (Ef fective 2023-Present) Name:Kristine Tamayo Relation to Subscriber:Self Name:Kristine Tamayo Payer ID:Not on file Type:PPO Address: [address] [facility] Member Subscriber Plan / Payer (Ef fective 2023-Present) Name:Kristine Tamayo Relation to Subscriber:Self Name:Kristine Tamayo Payer ID:Not on file Type:PPO Address: [address] [facility] Member Subscriber Plan / Payer (Ef fective 2023-Present) Name:Kristine Tamayo Relation to Subscriber:Self Name:Kristine Tamayo Payer ID:Not on file Type:PPO Address: [address] Care Teams Consulting Business Developer Relationship Specialty Start Date End Date Veronica Sanchez MD [address] [phone] PCP - General Family Medicine 09/07/23 Additional Source Comments The information contained in this document represents components of the legal health record. It is not the complete legal health record.[facility]
== END 2025-07-07 07:23 | disposition home or self-care (01) ==
LOC: HO.MAMMO 07:22
PROVIDERS: PCP Student in an Organized Health Care Education/Training Program; Visit Provider Student in an Organized Health Care Education/Training Program
DX: Z12.31 Encounter for screening mammogram for malignant neoplasm of breast (principal)
CPT/HCPCS: 77063; 77067

== ENCOUNTER → 2025-07-07 07:30 | Outpatient (BNV) | payer BC, SELFPAY | PROVIDERS: PCP Student in an Organized Health Care Education/Training Program; Visit Provider Internal Medicine | DX: Z12.31 Encounter for screening mammogram for malignant neoplasm of breast (principal) | CPT/HCPCS: 77063; 77067 ==